=== PATIENT | male | born 1990 | race Caucasian/White ===

== ENCOUNTER 2016-04-19 03:29 | Inpatient (IN) | payer OTHER ==
[~2016-04-19] VITALS: Ht 165.1 cm; Wt 63.6 kg
[2016-04-19] VITALS (10 sets, daily range): BP systolic 137–194; BP diastolic 78–122; PULSE 75–93; RESP 16–18; TEMP 97.4–98.4; O2SAT 94–98
[~2016-04-19 03:29] MED LIST: ALEN5TAB PO; FAMO20 PO; HYDR200T42 PO; LOSA50TA PO; NORC7.5T PO; PANT20 PO; PRED5SOL PO; Z.0.NO CURRENT MEDS
[2016-04-19] MEDS ORDERED: PLAQ200T PO (03:45)
[2016-04-19] MEDS ORDERED: PRED5TAB PO (03:45)
[2016-04-19] MEDS ORDERED: HYDR-3366 PO (03:45)
[2016-04-19] MEDS ORDERED: PANT20 PO (03:45)
[2016-04-19] MEDS ORDERED: CARV6.252 PO (03:45)
[2016-04-19] MEDS ORDERED: MORPHINE SULFATE 4 MG/ML INJ IV PUSH ONE ×3 (04:00→06:15)
[2016-04-19] MEDS ORDERED: ONDANSETRON HCL 4 MG/2 ML VIAL IV PUSH ONE (04:15)
[2016-04-19 04:19] LABS: AUTOMATED NEUTROPHIL # 4.4 TH/MM3 (1.8-7.7); BASOPHIL % 0.4 % (0.0-2.0); EOSINOPHIL # 0.2 TH/MM3 (0-0.4); EOSINOPHIL % 3.5 % (0.0-4.0); HEMATOCRIT 40.4 % (39.0-51.0); HEMO FLAGS DIFF FINAL; LYMPH % 25.3 % (9.0-44.0); LYMPHOCYTE # 1.7 TH/MM3 (1.0-4.8); MEAN CELL VOLUME 82.8 FL (80.0-100.0); MEAN CORPUSCULAR HEMOGLOBIN 29.1 PG (27.0-34.0); MEAN CORPUSCULAR HGB CONC 35.1 % (32.0-36.0); MONO % 5.4 % (0.0-8.0); NEUT % 65.4 % (16.0-70.0); PLATELET COUNT 240 TH/MM3 (150-450); RED BLOOD COUNT 4.88 MIL/MM3 (4.50-5.90); RED CELL DISTRIBUTION WIDTH 13.2 % (11.6-17.2); WHITE BLOOD COUNT 6.8 TH/MM3 (4.0-11.0)
[2016-04-19 04:42] LABS: ALT (GPT) 15 U/L (12-78); ANION GAP 10 MEQ/L (5-15); AST (GOT) 22 U/L (15-37); BICARBONATE 22.9 MEQ/L (21.0-32.0); BLOOD UREA NITROGEN 13 MG/DL (7-18); CHLORIDE 106 MEQ/L (98-107); GLOMERULAR FILTRATION RATE 36 ML/MIN (>89); POTASSIUM 3.5 MEQ/L (3.5-5.1); SODIUM (NA) 139 MEQ/L (136-145)
[2016-04-19 04:44] LABS: ALKALINE PHOSPHATASE 72 U/L (45-117); TOTAL BILIRUBIN ADULT 0.3 MG/DL (0.2-1.0)
[2016-04-19] MEDS ORDERED: predniSONE 50 MG TAB PO ONE (05:15)
--- NOTE | 2016-04-19 06:22 | PD ---
HPI Chief Complaint: Pain: Acute or Chronic Time Seen by Provider: 03:45 Travel History International Travel<30 days: No Contact w/Intl Traveler<30days: No Traveled to known affect area: No History of Present Illness HPI Patient is a 25 year old male with a history of rheumatoid arthritis and SLE who comes in complaining of joint pain all over. He says he usually takes Lortab for his pain, but this is not working. He follows with specialists at [facility] and says he was last seen 3 months ago. He denies fever or chills. He says the pain is similar to prior episodes, but worse. He denies chest pain or SOB. PFSH Past Medical History Arthritis: Yes Asthma: Yes (HISTORY 2003) Autoimmune Disease: No Blood Disorders: No Anxiety: No Depression: Yes Cardiovascular Problems: Yes (HTN) High Cholesterol: No Chemotherapy: No Chest Pain: No Congestive Heart Failure: No COPD: No Cerebrovascular Accident: No Diabetes: No Diminished Hearing: No Endocrine: No GERD: No Glaucoma: No Genitourinary: No Headaches: No Hepatitis: No Hiatal Hernia: No Hypertension: Yes Immune Disorder: Yes (SYSTEMIC LUPUS) Kidney Stones: No Musculoskeletal: No Neurologic: No Psychiatric: No Reproductive: No Respiratory: Yes (INTERSTITIAL LUNG DISEASE.) Immunizations Current: Yes Migraines: No Myocardial Infarction: No Radiation Therapy: No Renal Failure: No Seizures: No Sickle Cell Disease: No Sleep Apnea: No Thyroid Disease: No Ulcer: No Influenza Vaccination: No Past Surgical History AICD: No Appendectomy: No Arteriovenous Shunt: No Cholecystectomy: No Joint Replacement: No Pacemaker: No Other Surgery: Yes (LUNG BIOPSY AT AGE 4) Social History Alcohol Use: Yes (SOCIAL) Tobacco Use: No Substance Use: Yes (marijuana) Allergies-Medications (Allergen,Severity, Reaction): Coded Allergies: Dilaudid (Verified Allergy, Severe, RASH, 04/19/16) Penicillin (Verified Allergy, Severe, RASH, 04/19/16) Latex (Verified Allergy, Unknown, 04/19/16) Uncoded Allergies: PLASTIC TAPE (Allergy, Severe, RASH, 11/27/08) Reported Meds & Prescriptions Reported Meds & Active Scripts Active Reported Protonix (Pantoprazole Sodium) 20 Mg Tab 20 Mg PO DAILY Prednisone 5 Mg Tab 15 Mg PO BID Carvedilol 6.25 Mg Tab 6.25 Mg PO BID [place] (Hydrocodone-Acetaminophen) 10-325 Mg Tab 1 Tab PO Q6H PRN Plaquenil (Hydroxychloroquine Sulfate) 200 Mg Tab 300 Mg PO DAILY Take with food Review of Systems Except as stated in HPI: all other systems reviewed are Neg General / Constitutional: No: Fever, Chills HENT: No: Headaches, Lightheadedness Cardiovascular: No: Chest Pain or Discomfort Respiratory: No: Shortness of Breath Gastrointestinal: No: Nausea, Vomiting Musculoskeletal: Positive: Arthralgias, Edema, Pain Skin: No Rash, No Change in Pigmentation Neurologic: No: Weakness, Dizziness Physical Exam Narrative GENERAL: Awake and alert in no acute distress. SKIN: Warm and dry. HEAD: Atraumatic. Normocephalic. EYES: Pupils equal and round. No scleral icterus. ENT: Mucous membranes pink and moist. NECK: Trachea midline. No JVD. CARDIOVASCULAR: Regular rate and rhythm. No murmur appreciated. RESPIRATORY: No accessory muscle use. Clear to auscultation. Breath sounds equal bilaterally. MUSCULOSKELETAL: No obvious deformities. No clubbing. No cyanosis. Edema of the right wrist. Tender to palpation of both shoulders and both wrists. No erythema or warmth of the joints. NEUROLOGICAL: Awake and alert. No obvious cranial nerve deficits. Motor grossly within normal limits. Normal speech. PSYCHIATRIC: Appropriate mood and affect; insight and judgment normal. Data Data Last Documented VS Vital Signs Date Time Temp Pulse Resp B/P Pulse Ox O2 Delivery O2 Flow Rate FiO2 04/19/16 05:01 76 16 174/116 94 Room Air 04/19/16 03:33 97.5 Orders Complete Blood Count With Diff (04/19/16 03:56) Comprehensive Metabolic Panel (04/19/16 03:56) Morphine Inj (Morphine Inj) (04/19/16 04:00) Ondansetron Inj (Zofran Inj) (04/19/16 04:15) Morphine Inj (Morphine Inj) (04/19/16 05:15) Prednisone (Deltasone) (04/19/16 05:15) Morphine Inj (Morphine Inj) (04/19/16 06:15) Admit Order (Ed Use Only) (04/19/16 ) Labs Laboratory Tests Test 04/19/16 03:56 White Blood Count 6.8 TH/MM3 Red Blood Count 4.88 MIL/MM3 Hemoglobin 14.2 GM/DL Hematocrit 40.4 % Mean Corpuscular Volume 82.8 FL Mean Corpuscular Hemoglobin 29.1 PG Mean Corpuscular Hemoglobin 35.1 % Concent Red Cell Distribution Width 13.2 % Platelet Count 240 TH/MM3 Mean Platelet Volume 7.9 FL Neutrophils (%) (Auto) 65.4 % Lymphocytes (%) (Auto) 25.3 % Monocytes (%) (Auto) 5.4 % Eosinophils (%) (Auto) 3.5 % Basophils (%) (Auto) 0.4 % Neutrophils # (Auto) 4.4 TH/MM3 Lymphocytes # (Auto) 1.7 TH/MM3 Monocytes # (Auto) 0.4 TH/MM3 Eosinophils # (Auto) 0.2 TH/MM3 Basophils # (Auto) 0.0 TH/MM3 CBC Comment DIFF FINAL Differential Comment Sodium Level 139 MEQ/L Potassium Level 3.5 MEQ/L Chloride Level 106 MEQ/L Carbon Dioxide Level 22.9 MEQ/L Anion Gap 10 MEQ/L Blood Urea Nitrogen 13 MG/DL Creatinine 2.23 MG/DL Estimat Glomerular Filtration 36 ML/MIN Rate Random Glucose 95 MG/DL Calcium Level 8.8 MG/DL Total Bilirubin 0.3 MG/DL Aspartate Amino Transf 22 U/L (AST/SGOT) Alanine Aminotransferase 15 U/L (ALT/SGPT) Alkaline Phosphatase 72 U/L Total Protein 7.5 GM/DL Albumin 3.7 GM/DL [facility] Medical Decision Making Medical Screen Exam Complete: Yes Emergency Medical Condition: Yes Medical Record Reviewed: Yes Differential Diagnosis Rheumatoid arthritis versus lupus flare versus infection Narrative Course Patient is a 25-year-old male who comes in complaining of pain to his joints. Exam shows some edema of the right wrist, tender to palpation of the shoulders and wrists. IV established, labs sent. Patient given morphine for pain. Labs show a creatinine of 2.23, it was 1.5 in October. He does not know what his creatinine was when he saw the specialist at [facility]. Patient given second dose of morphine due to continued pain. Patient states he is still having pain. Given third is a morphine. Admitted for management of his pain as well as his acute kidney injury. Diagnosis Primary Impression: Acute kidney injury Additional Impression: Intractable pain Admitting Information Admitting Physician Requests: Admit Mamta Retana MD Apr 19, 2016 06:22
[2016-04-19] MEDS ORDERED: oxyCODONE/ACETAMINOPHEN 10 MG/325 MG TAB PO PRN (06:30)
[2016-04-19] MEDS ORDERED: ACETAMINOPHEN 325 MG TAB PO PRN (06:30)
[2016-04-19] MEDS ORDERED: oxyCODONE/ACETAMINOPHEN 5 MG/325 MG TAB PO PRN (06:30)
[2016-04-19] MEDS ORDERED: NALOXONE HCL 0.4 MG/ML AMP IV PRN (06:30)
[2016-04-19] MEDS ORDERED: ENOXAPARIN SODIUM 40 MG/0.4 ML SYRINGE SQ SCH ×2 (06:30→06:45)
[2016-04-19] MEDS ORDERED: SODIUM CHLORIDE 0.9% FLUSH 5 ML FLUSH FLUSH PRN (06:30)
[2016-04-19] MEDS: SODIUM CHLOR 0.9% 1000 ML INJ 1,000 ML IV SCH ×2 (06:34→16:23)
[2016-04-19] MEDS ORDERED: hydrALAZINE HCL 20 MG/ML VIAL IV PUSH PRN (08:30)
[2016-04-19] MEDS: SODIUM CHLORIDE 0.9% FLUSH 5 ML FLUSH FLUSH SCH ×2 (09:00→20:50)
[2016-04-19] MEDS: ENOXAPARIN SODIUM 40 MG/0.4 ML SYRINGE SQ SCH (09:56)
[2016-04-19] MEDS: PANTOPRAZOLE SOD 40 MG DELAYED RELEASE TAB PO SCH (10:08)
[2016-04-19] MEDS: CARVEDILOL 12.5 MG TAB PO SCH ×2 (10:08→20:49)
[2016-04-19] MEDS: ONDANSETRON HCL 4 MG/2 ML VIAL IVP PRN (11:11)
[2016-04-19] MEDS: HYDROXYCHLOROQUINE SULFATE 200 MG TAB PO SCH (11:12)
[2016-04-19] MEDS: MORPHINE SULFATE 4 MG/ML INJ IV PUSH PRN ×2 (11:12→14:45)
--- NOTE | 2016-04-19 11:59 | HHI.HP ---
HPI Service [facility] Primary Care Physician Juan C Whalen M.D. Admission Diagnosis SHAKA, arthritis pain Diagnoses: (1) Hypertensive urgency Diagnosis: Principal (2) Intractable pain Diagnosis: Principal (3) CKD (chronic kidney disease), stage III Diagnosis: Principal (4) RA (rheumatoid arthritis) Diagnosis: Principal (5) Acute kidney injury Diagnosis: Principal Chief Complaint: Back pain, shoulder pain, headache, swelling and right wrist, insomnia, decreased appetite, nausea (Kaylene Leung) Travel History International Travel<30 Days: No Contact w/Intl Traveler <30 Da: No Traveled to Known Affected Are: No (Kaylene Leung) History of Present Illness This is a 25-year-old male who presents to the emergency room with uncontrolled back pain, shoulder pain ,headache, and swelling of the right wrist. He also complains of not sleeping for the past 3-4 days, and states that he has been nauseated with very minimal appetite. Patient denies any fever and has had no weight gain or weight loss more than 2 or 3 pounds. Patient is a good historian and has had a significant history of autoimmune disorders with a diagnosis of SLE. Patient has been followed at the [facility] in [place] where he has lived for the past 10 years. He was followed there by pulmonary medicine for 1 visit, consults with nephrology, and consults with rheumatology. He recently moved back to the [facility] in July 2015 due to his health issues to be with his mother and stepfather. Patient was also seen in the [facility] back in February with his shoulder pain. He states his shoulder x-ray showed no torn ligaments and no torn rotator cuff. Patient states that he is left shoulder pain continues to the point that he cannot get comfortable even taking his pain meds. Since patient has been back in the [facility] he has been followed by Dr. Shahbaz Whalen and had his last appointment in February. She states he is made no changes in his by mouth medicines, but does comment that the pain meds are not effective anymore. (Kaylene Leung) Review of Systems ROS Limitations: Other (10 point review obtained , unremarkable) Other 10 point review obtained with some of the positives and negatives initiated in the history of present illness, otherwise unremarkable (Kaylene Leung) Past Family Social History Past Medical History Left club foot at Hypertension Depression Rheumatoid arthritis as a child and asthma SLE Chronic joint pain Chronic kidney disease Tendinitis left shoulder Interstitial lung disease Headache Past Surgical History Surgical procedures for club foot 2 Kidney biopsy Lung biopsy Reported Medications See med reconciliation sheet (Kaylene Leung) Allergies: Coded Allergies: Dilaudid (Verified Allergy, Severe, RASH, 04/19/16) Penicillin (Verified Allergy, Severe, RASH, 04/19/16) Latex (Verified Allergy, Unknown, 04/19/16) Uncoded Allergies: PLASTIC TAPE (Allergy, Severe, RASH, 11/27/08) Active Ordered Medications By mouth prednisone Solu-Medrol IV Percocet scheduled [id number] Lovenox Senokot Plaquenil Protonix Apresoline when necessary Family History Mother father still living Mother hypertension and migraines Father EtOH abuse Brother aneurysms 2, at age 20 Social History No tobacco use rare social alcohol use Social marijuana use Patient lives with mother and stepfather. Moved back home 2015. Had been living in the [facility] for the past 10 years before moving back. (Kaylene Leung) Physical Exam Vital Signs Vital Signs Date Time Temp Pulse Resp B/P Pulse Ox O2 Delivery O2 Flow Rate FiO2 04/19/16 09:35 75 16 169/86 97 Room Air 04/19/16 09:15 75 16 181/108 97 Room Air 04/19/16 08:00 78 16 189/99 97 Room Air 04/19/16 05:01 76 16 174/116 94 Room Air 04/19/16 03:45 81 16 180/122 98 Room Air 04/19/16 03:33 97.5 80 16 194/102 98 Room Air Physical Exam GENERAL: This is a well-nourished, well-developed patient, in mild joint pain / distress. SKIN: No rashes, ecchymoses or lesions. Cool and dry. HEAD: Atraumatic. Normocephalic. No temporal or scalp tenderness. EYES: Pupils 2mm,equal round and reactive. Extraocular motions intact. No scleral icterus. No injection or drainage. ENT: Nose without bleeding, purulent drainage or septal hematoma. Throat without erythema, tonsillar hypertrophy or exudate. Uvula midline. Airway patent. NECK: Trachea midline. No JVD or lymphadenopathy. Supple, nontender CARDIOVASCULAR: Regular rate and rhythm without murmurs, gallops, or rubs. No pedal edema, RESPIRATORY: Clear to auscultation. Breath sounds equal bilaterally. No wheezes , rales, or rhonchi. Eupneic at rest. GASTROINTESTINAL: Abdomen soft, non-tender, nondistended. No hepato-splenomegaly , or palpable masses. No guarding. MUSCULOSKELETAL: Extremities with clubbing repair lt foot. , cyanosis, or edema. Positive for joint tenderness left and right wrist, no effusion, mild edema noted. No calf tenderness. Left hand and fingers abnormal curvature. NEUROLOGICAL: Awake and alert. Cranial nerves II through XII intact. Motor and sensory grossly within normal limits. Five out of 5 muscle strength in all muscle groups. Normal speech. Laboratory Laboratory Tests Test 04/19/16 03:56 White Blood Count 6.8 Red Blood Count 4.88 Hemoglobin 14.2 Hematocrit 40.4 Mean Corpuscular Volume 82.8 Mean Corpuscular Hemoglobin 29.1 Mean Corpuscular Hemoglobin 35.1 Concent Red Cell Distribution Width 13.2 Platelet Count 240 Mean Platelet Volume 7.9 Neutrophils (%) (Auto) 65.4 Lymphocytes (%) (Auto) 25.3 Monocytes (%) (Auto) 5.4 Eosinophils (%) (Auto) 3.5 Basophils (%) (Auto) 0.4 Neutrophils # (Auto) 4.4 Lymphocytes # (Auto) 1.7 Monocytes # (Auto) 0.4 Eosinophils # (Auto) 0.2 Basophils # (Auto) 0.0 CBC Comment DIFF FINAL Differential Comment Erythrocyte Sedimentation Rate 39 Sodium Level 139 Potassium Level 3.5 Chloride Level 106 Carbon Dioxide Level 22.9 Anion Gap 10 Blood Urea Nitrogen 13 Creatinine 2.23 Estimat Glomerular Filtration 36 Rate Random Glucose 95 Calcium Level 8.8 Total Bilirubin 0.3 Aspartate Amino Transf 22 (AST/SGOT) Alanine Aminotransferase 15 (ALT/SGPT) Alkaline Phosphatase 72 Total Protein 7.5 Albumin 3.7 (Kaylene Leung) Result Diagram: 04/19/16 0356 04/19/16 0356 Imaging none Course Admission for observation, pain control, hypertension control. Nephrology consult (Kaylene Leung) Septic Shock Reassessment Heart: Regular rate and rhythm Lungs: Clear Skin: Warm, Dry Peripheral Pulses: Bounding Right Radial Bounding Left Radial Bounding Right Popliteal Bounding Left Popliteal Bounding Right Dorsalis Pedis Bounding Left Dorsalis Pedis Bounding Right Posterior Tibial Bounding Left Posterior Tibial Capillary Refill: Brisk (Kaylene Leung) Assessment and Plan Problem List: (1) Hypertensive urgency (2) Intractable pain (3) CKD (chronic kidney disease), stage III (4) RA (rheumatoid arthritis) Assessment and Plan Increase Coreg dose and monitor BP during hospital stay. Add clonidine. IV hydralazine when necessary for parameters given for systolic and diastolic. Current need is to stabilize blood pressure with parameters of systolic 170 or less, diastolic 90 or less. Schedule by mouth pain meds, Percocet around the clock, Morphine 4 mg IV every 3 hours for breakthrough pain. Evaluate time in specific location of pain and document. Medication management as well as nephrology consult for his chronic kidney disease. Appreciate the expert opinion. Check labs in the morning CBC, BMP, sedimentation rate. We will continue to review warranted labs until discharge, and evaluate any abnormals. 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 Consult written inpatient. Reconcil home medications We'll reach out for old records at [facility] since patient lived in this area for at least 10 years. Also reach for old records for recent admission in February 2016 at [facility]. Code Status Full code full aggressive care Discussed With: Nurse, Other (Dr. Combs, and patient) (Kaylene Leung) Assessment and Plan Patient seen and examined as above Chart reviewed in detail Discussed with patient in detail Plan of care discussed with LOCAL AREA NETWORK ADMINISTRATOR See orders (Dorie Combs MD) Problem Qualifiers (1) RA (rheumatoid arthritis): Qualified Code: M06.9 - Rheumatoid arthritis involving multiple sites, unspecified rheumatoid factor presence Kaylene Leung Apr 19, 2016 11:59 Dorie Combs MD Apr 19, 2016 15:28
[2016-04-19] MEDS: oxyCODONE/ACETAMINOPHEN 10 MG/325 MG TAB PO SCH ×2 (12:35→18:32)
--- NOTE | 2016-04-19 13:55 | PD.CONS ---
[facility] Service Nephrology Consult Requested By Lauryn Reason for Consult Elevated creatinine Primary Care Physician Juan C Whalen M.D. History of Present Illness This is a young 25 y/o male patient who came in for joint pain. Hx of RA and SLE, he is on Prednisone and Plaquenil at home. His pain medications have not been working the past few days. Creatinine 2.2 on arrival, he has a hx of CKD for which he follows with a physician at [place] in [place] every 3 months. He had a biopsy in January of 2015. His last creatinine was 1.46 in November 2015 per [facility] records patient had access to with his phone, GFR in 50s. No reports of urinary retention. He also has a hx of HTN and interstitial lung disease, had a biopsy as a child, has "honeycombed lungs" per pt. 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 We were consulted for management. He is a full code. (Christelle Kent) Review of Systems Musculoskeletal: COMPLAINS OF: Joint pain, Muscle aches, Stiffness, Joint Swelling (Christelle Kent) Past Family Social History Allergies: Coded Allergies: Dilaudid (Verified Allergy, Severe, RASH, 04/19/16) Penicillin (Verified Allergy, Severe, RASH, 04/19/16) Latex (Verified Allergy, Unknown, 04/19/16) Uncoded Allergies: PLASTIC TAPE (Allergy, Severe, RASH, 11/27/08) Past Medical History SLE CKD, last creatinine from November 2015 per records at [facility] 1.46 chronic joint pain due to RA HTN Anxiety/Depression Past Surgical History Surgical procedures for club foot 2 Kidney biopsy Lung biopsy Reported Medications Protonix (Pantoprazole Sodium) 20 Mg Tab 20 Mg PO DAILY Prednisone 5 Mg Tab 15 Mg PO BID Carvedilol 6.25 Mg Tab 6.25 Mg PO BID [place] (Hydrocodone-Acetaminophen) 10-325 Mg Tab 1 Tab PO Q6H PRN Plaquenil (Hydroxychloroquine Sulfate) 200 Mg Tab 300 Mg PO DAILY Take with food Active Ordered Medications Current Medications Medications (Trade) Dose Ordered Sig/Matt Route Start Time Stop Time Status Last Admin (NS 1000 ml Inj) 1,000 ml @ 100 mls/hr Q10H IV 04/19/16 06:23 04/19/16 06:34 (NS Flush) 2 ml UNSCH PRN FLUSH 04/19/16 06:30 (NS Flush) 2 ml BID FLUSH 04/19/16 09:00 (Tylenol) 650 mg Q4H PRN PO 04/19/16 06:30 (Zofran Inj) 4 mg Q6H PRN IVP 04/19/16 06:30 04/19/16 11:11 (Senokot) 17.2 mg Q12H PRN PO 04/19/16 06:30 (Narcan Inj) 0.4 mg UNSCH PRN IV 04/19/16 06:30 (Lovenox Inj) 40 mg Q24H SQ 04/19/16 09:00 04/19/16 09:56 (Apresoline Inj) 10 mg Q30M PRN IV PUSH 04/19/16 08:30 04/19/16 09:08 (Percocet 10-325 Mg) 1 tab Q6H PO 04/19/16 12:30 04/19/16 12:35 (SoluMEDROL INJ) 40 mg Q12H IV PUSH 04/19/16 17:00 04/21/16 16:59 (Morphine Inj) 4 mg Q3H PRN IV PUSH 04/19/16 10:00 04/19/16 11:12 (Protonix) 40 mg DAILY PO 04/19/16 10:00 04/19/16 10:08 (Plaquenil) 300 mg DAILY PO 04/19/16 11:00 04/19/16 11:12 (Deltasone) 15 mg BID PO 04/19/16 21:00 (Coreg) 12.5 mg Q12HR PO 04/19/16 10:00 04/19/16 10:08 (Catapres) 0.1 mg Q6H PRN PO 04/19/16 09:45 (Apresoline) 10 mg QID PRN PO 04/19/16 09:45 Family History No hx of renal disorders Social History Moved back to the area last July from [place] 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 not occasional smoker no ETOH full code (Christelle Kent) Physical Exam Vital Signs Vital Signs Date Time Temp Pulse Resp B/P Pulse Ox O2 Delivery O2 Flow Rate FiO2 04/19/16 12:00 97.4 84 16 144/93 95 1/13/17 09:35 75 16 169/86 97 Room Air 04/19/16 09:15 75 16 181/108 97 Room Air 04/19/16 08:00 78 16 189/99 97 Room Air 04/19/16 05:01 76 16 174/116 94 Room Air 04/19/16 03:45 81 16 180/122 98 Room Air 04/19/16 03:33 97.5 80 16 194/102 98 Room Air Physical Exam Young male awake/oriented x 3 Lungs: clear throughout Chest: S1/S2, regular rate and rhythm, no murmurs Abd: flat, non tender Ext: no edema, some minor joint swelling Skin: intact Laboratory Laboratory Tests Test 04/19/16 03:56 White Blood Count 6.8 Red Blood Count 4.88 Hemoglobin 14.2 Hematocrit 40.4 Mean Corpuscular Volume 82.8 Mean Corpuscular Hemoglobin 29.1 Mean Corpuscular Hemoglobin 35.1 Concent Red Cell Distribution Width 13.2 Platelet Count 240 Mean Platelet Volume 7.9 Neutrophils (%) (Auto) 65.4 Lymphocytes (%) (Auto) 25.3 Monocytes (%) (Auto) 5.4 Eosinophils (%) (Auto) 3.5 Basophils (%) (Auto) 0.4 Neutrophils # (Auto) 4.4 Lymphocytes # (Auto) 1.7 Monocytes # (Auto) 0.4 Eosinophils # (Auto) 0.2 Basophils # (Auto) 0.0 CBC Comment DIFF FINAL Differential Comment Erythrocyte Sedimentation Rate 39 Sodium Level 139 Potassium Level 3.5 Chloride Level 106 Carbon Dioxide Level 22.9 Anion Gap 10 Blood Urea Nitrogen 13 Creatinine 2.23 Estimat Glomerular Filtration 36 Rate Random Glucose 95 Calcium Level 8.8 Total Bilirubin 0.3 Aspartate Amino Transf 22 (AST/SGOT) Alanine Aminotransferase 15 (ALT/SGPT) Alkaline Phosphatase 72 Total Protein 7.5 Albumin 3.7 (Christelle Kent) Result Diagram: 04/19/1635504/19/16355 Assessment and Plan Problem List: (1) Acute kidney injury Plan: creatinine 2.2 on arrival, last available creatinine from [facility] system 1.46m, GFR in 50-60s, consistent with CKD 2-3 no evidence of infection, no NAIDS use, no recent dehydration K and C02 acceptable he is on IVF, continue and encourage oral intake creatinine may have worsened since his last office visit he is on high doses of steroids, which may raise BUN monitor urine output, no strauss required obtain UA for analysis, quantify protein if necessary will obtain renal US to rule out any obstructive etiologies of increase in creatinine renal panel in am (2) HTN (hypertension) Plan: home meds resumed needs better BP control clonidine added, monitor response (3) Intractable pain Plan: pain control avoid NSAIDs (4) SLE (systemic lupus erythematosus) Plan: and RA, ESR is elevated he is on prednisone 15 mg BID, solumedrol started IV also on Plaquenil per home dosage, monitor clinically (Christelle Kent) Assessment and Plan patient was seen and examined. Complicated medical history was reviewed. Apparently has history of RA, and interstitial lung disease. Had renal biopsy in January of 2015, after which they made a diagnosis of "lupus". Will need to review old records. Continue IVF. On empiric steroids. Obtain NORBERTO, complement levels and RF. Avoid nephrotoxic agents. (Twan Robbins MD) Christelle Kent Apr 19, 2016 13:55 Twan Robbins MD Apr 19, 2016 16:39
[2016-04-19] MEDS: cloNIDine HCL 0.1 MG TAB PO SCH ×2 (17:24→20:49)
[2016-04-19] MEDS: methylPREDNISolone SOD SUCC 40 MG/1 ML VIAL IV PUSH SCH (17:30)
[2016-04-19 18:08] LABS: BLOOD, URINE LARGE (NEG); COMMENT (UR) CULT NOT INDICATED; CULTURE IF INDICATED CULT NOT INDICATED; GLUCOSE,URINE NEG (NEG); GRANULAR CAST, URINE 6 /lpf; KETONE, URINE NEG (NEG); NITRITE,URINE NEG (NEG); PH, URINE 5.5 (5.0-8.5); URINE COLOR YELLOW (YELLW/STRAW)
--- NOTE | 2016-04-19 20:36 | RADRPT ---
EXAM DATE/TIME: 04/19/2016 16:54 [facility] COMPARISON: No previous studies available for comparison. INDICATIONS : Increased BUN/Creatinine. MEDICAL HISTORY : Hypertension. Asthma. Interstitial lung disease. Chronic renal impairment. Arthritis. Systemic heather pus. SURGICAL HISTORY : Left foot reconstruction, clubfoot. Right wrist reconstruction. Lung biopsy. ENCOUNTER: Initial ACUITY: 1 day PAIN SCORE: 0/10 LOCATION: Bilateral flank MEASUREMENTS: RIGHT KIDNEY: 9.5 x 5.5 x 4.0 cm LEFT KIDNEY: 9.7 x 5.0 x 5.4 cm FINDINGS: RIGHT KIDNEY: The kidney appears echogenic. No hydronephrosis is seen. LEFT KIDNEY: The kidney appears echogenic. No hydronephrosis is seen. BLADDER: Within normal limits given the degree of distension. CONCLUSION: Echogenic appearance of the kidneys consistent with medical renal disease. Juan C Salcedo MD on April 19, 2016 at 20:33 Board Certified Radiologist. This report was verified electronically.
[2016-04-19] MEDS ORDERED: predniSONE 5 MG TAB PO SCH (21:00)
[2016-04-19] MEDS: ZOLPIDEM TARTRATE 5 MG TAB PO PRN (21:58)
[2016-04-19] MEDS: MORPHINE SULFATE 8 MG/ML INJ IV PUSH PRN (22:00)
[2016-04-20] VITALS: BP 128/92; PULSE 79; RESP 16; TEMP 97; O2SAT 96
[2016-04-20] MEDS: oxyCODONE/ACETAMINOPHEN 10 MG/325 MG TAB PO PRN ×4 (00:48→19:59)
[2016-04-20] MEDS: SODIUM CHLOR 0.9% 1000 ML INJ 1,000 ML IV SCH ×2 (02:23→12:49)
[2016-04-20 04:00] VITALS: BP 126/89; PULSE 77; RESP 16; TEMP 96.7; O2SAT 96
[2016-04-20] MEDS: methylPREDNISolone SOD SUCC 40 MG/1 ML VIAL IV PUSH SCH ×2 (05:28→16:55)
[2016-04-20] MEDS: MORPHINE SULFATE 8 MG/ML INJ IV PUSH PRN ×2 (05:39→12:49)
[2016-04-20 06:42] LABS: BICARBONATE 22.7 MEQ/L (21.0-32.0); POTASSIUM 4.2 MEQ/L (3.5-5.1)
[2016-04-20 06:43] LABS: AUTOMATED NEUTROPHIL # 3.2 TH/MM3 (1.8-7.7); BASOPHIL % 0.1 % (0.0-2.0); HEMATOCRIT 37.5 % (39.0-51.0); HEMO FLAGS DIFF FINAL; LYMPH % 24.8 % (9.0-44.0); LYMPHOCYTE # 1.2 TH/MM3 (1.0-4.8); MEAN CELL VOLUME 83.4 FL (80.0-100.0); MEAN CORPUSCULAR HEMOGLOBIN 28.5 PG (27.0-34.0); MEAN CORPUSCULAR HGB CONC 34.2 % (32.0-36.0); MONO % 6.6 % (0.0-8.0); NEUT % 68.5 % (16.0-70.0); PLATELET COUNT 227 TH/MM3 (150-450); RED CELL DISTRIBUTION WIDTH 13.2 % (11.6-17.2); WHITE BLOOD COUNT 4.7 TH/MM3 (4.0-11.0)
[2016-04-20 08:00] VITALS: BP 142/86; PULSE 68; RESP 18; TEMP 96.3; O2SAT 96
[2016-04-20] MEDS: HYDROXYCHLOROQUINE SULFATE 200 MG TAB PO SCH (08:33)
[2016-04-20] MEDS: cloNIDine HCL 0.1 MG TAB PO SCH ×2 (08:33→19:56)
[2016-04-20] MEDS: ENOXAPARIN SODIUM 40 MG/0.4 ML SYRINGE SQ SCH (08:33)
[2016-04-20] MEDS: PANTOPRAZOLE SOD 40 MG DELAYED RELEASE TAB PO SCH (08:33)
[2016-04-20] MEDS: CARVEDILOL 12.5 MG TAB PO SCH ×2 (08:33→19:56)
[2016-04-20] MEDS: SODIUM CHLORIDE 0.9% FLUSH 5 ML FLUSH FLUSH SCH ×2 (08:34→19:57)
[2016-04-20 12:00] VITALS: BP 121/81; PULSE 75; RESP 18; TEMP 97.2; O2SAT 93
--- NOTE | 2016-04-20 12:09 | HHI.NPPN ---
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 Review of Systems Musculoskeletal MS: Pain/Stiffness Objective Data Data 04/19/16 04/20/16 19:00 07:00 Intake Total 1765 ml 1200 ml Output Total 300 ml Balance 1465 ml 1200 ml Intake Oral 720 ml 1200 ml IV Total 1045 ml Output Urine Total 300 ml # Voids 5 # Bowel Movements 0 1 Vital Signs Date Time Temp Pulse Resp B/P Pulse Ox O2 Delivery O2 Flow Rate FiO2 04/20/16 08:00 96.3 68 18 142/86 96 04/20/16 06:04 18 04/20/16 04:00 96.7 77 16 126/89 96 04/20/16 01:55 18 04/20/16 00:00 97.0 79 16 128/92 96 04/19/16 20:00 97.5 75 17 137/91 94 04/19/16 16:00 98.4 93 18 139/78 98 04/19/16 14:40 87 138/94 -: 04/20/16 0533 04/20/16 0533 Physical Exam General Appearance: Well Developed Neck Neck Exam: Neck Supple Pulmonary Resp Exam: Clear Bilaterally Cardiology CV Exam: Regular, Normal Sinus Rhythm Gastrointestinal/Abdomen GI Exam: Soft, Non-Tender, Bowel Sounds Present Integumentary Skin Exam: Clear Extremeties Extremities Exam: No Edema Assessment/Plan Problem List: (1) Acute kidney injury Plan: creatinine declined with hydration C3 normal RA increased 780 RBC in urine agree with SoluMedrol consider Cellcept (2) HTN (hypertension) Plan: home meds resumed needs better BP control clonidine added, monitor response (3) Intractable pain Plan: pain control avoid NSAIDs (4) SLE (systemic lupus erythematosus) Plan: and RA, ESR is elevated he is on prednisone 15 mg BID, solumedrol started IV also on Plaquenil per home dosage, monitor clinically Kate Deutsch MD Apr 20, 2016 12:09
[2016-04-20] MEDS: SENNOSIDES 8.6 MG TAB PO PRN (14:12)
--- NOTE | 2016-04-20 14:54 | HHI.PR ---
Subjective Remarks Patient has pain. Current medications are not helping him much. As the patient he has CellCept before. It did not help his kidney it was for 3 months. No other complaint Review of system for 12 point system otherwise unremarkable Objective Objective Results - Vital Signs Date Time Temp Pulse Resp B/P Pulse Ox O2 Delivery O2 Flow Rate FiO2 04/20/16 12:00 97.2 75 18 121/81 93 04/20/16 08:00 96.3 68 18 142/86 96 04/20/16 06:04 18 04/20/16 04:00 96.7 77 16 126/89 96 04/20/16 01:55 18 04/20/16 00:00 97.0 79 16 128/92 96 04/19/16 20:00 97.5 75 17 137/91 94 04/19/16 16:00 98.4 93 18 139/78 98 I/O 04/19/16 04/19/16 04/19/16 04/20/16 04/20/16 04/20/16 07:00 15:00 23:00 07:00 15:00 23:00 Intake Total 720 ml 1765 ml 480 ml 902 ml Output Total 300 ml Balance 420 ml 1765 ml 480 ml 902 ml Intake Oral 720 ml 720 ml 480 ml IV Total 1045 ml 902 ml Output Urine Total 300 ml # Voids 3 2 # Bowel Movements 0 1 Result Diagram: 04/20/16 0533 04/20/16 0533 Imaging none Other Results Laboratory Tests Test 04/19/16 04/20/16 17:20 05:33 Urine Color YELLOW Urine Turbidity CLEAR Urine pH 5.5 Urine Specific [place] 1.011 Urine Protein 100 Urine Glucose (UA) NEG Urine Ketones NEG Urine Occult Blood LARGE Urine Nitrite NEG Urine Bilirubin NEG Urine Urobilinogen LESS THAN 2.0 Urine Leukocyte Esterase NEG Urine RBC 31 Urine WBC 1 Urine Granular Casts 6 Microscopic Urinalysis Comment CULT NOT INDICATED White Blood Count 4.7 Red Blood Count 4.50 Hemoglobin 12.8 Hematocrit 37.5 Mean Corpuscular Volume 83.4 Mean Corpuscular Hemoglobin 28.5 Mean Corpuscular Hemoglobin 34.2 Concent Red Cell Distribution Width 13.2 Platelet Count 227 Mean Platelet Volume 8.0 Neutrophils (%) (Auto) 68.5 Lymphocytes (%) (Auto) 24.8 Monocytes (%) (Auto) 6.6 Eosinophils (%) (Auto) 0.0 Basophils (%) (Auto) 0.1 Neutrophils # (Auto) 3.2 Lymphocytes # (Auto) 1.2 Monocytes # (Auto) 0.3 Eosinophils # (Auto) 0.0 Basophils # (Auto) 0.0 CBC Comment DIFF FINAL Differential Comment Sodium Level 140 Potassium Level 4.2 Chloride Level 109 Carbon Dioxide Level 22.7 Anion Gap 8 Blood Urea Nitrogen 17 Creatinine 1.72 Estimat Glomerular Filtration 48 Rate Random Glucose 109 Calcium Level 8.1 Physical Exam Physical Exam GENERAL: This is a well-nourished, well-developed patient, in mild joint pain / distress. SKIN: No rashes, ecchymoses or lesions. Cool and dry. HEAD: Atraumatic. Normocephalic. No temporal or scalp tenderness. EYES: Pupils equal round and reactive. Extraocular motions intact. No scleral icterus. No injection or drainage. ENT: Airway patent. NECK: Trachea midline. Supple, nontender CARDIOVASCULAR: Regular rate and rhythm without murmurs, gallops, or rubs. No pedal edema, RESPIRATORY: Clear to auscultation. Breath sounds equal bilaterally. No wheezes , rales, or rhonchi. GASTROINTESTINAL: Abdomen soft, non-tender, nondistended. No hepato-splenomegaly , or palpable masses. No guarding. MUSCULOSKELETAL: Extremities with clubbing repair lt foot. , No cyanosis, and no edema. Positive for joint tenderness left and right wrist, no effusion, mild edema noted. No calf tenderness. Left hand and fingers abnormal curvature. Secondary to her rheumatoid arthritis NEUROLOGICAL: Awake and alert. Cranial nerves II through XII intact. Motor and sensory grossly within normal limits. Five out of 5 muscle strength in all muscle groups. Normal speech. A/P Assessment and Plan Diagnoses: (1) Hypertensive urgency (2) Intractable pain (3) CKD (chronic kidney disease), stage III (4) RA (rheumatoid arthritis) (5) Acute kidney injury Plan Increased Coreg dose and monitor BP during hospital stay. When necessary basis clonidine. hydralazine when necessary for parameters given for systolic and diastolic. Stable BP Schedule by mouth pain meds, Percocet around the clock, will DC Morphine and start Dilaudid on a when necessary basis evaluate time in specific location of pain and document. Appreciate nephrology consult. Started on low-dose CellCept. Discussed with real estate leasing manager will continue CellCept and monitor for any side effects. Labs reviewed. Improving creatinine. Continue home medication as indicated Continue steroid As outpatient he needs to follow counter intelligence agent. No counter intelligence agent available in this hospital. Repeat BMP tomorrow am The DVT prophylaxis including SCDs PUD prophylaxis Discussed with patient Discussed with RN Discussed With: Nurse, Other (Dr. Combs, and patient) Dorie Combs MD Apr 20, 2016 14:54
[2016-04-20] MEDS ORDERED: HYDROmorphone HCL 2 MG TAB PO PRN (15:00)
[2016-04-20 16:00] VITALS: BP 139/88; PULSE 73; RESP 16; TEMP 97.6; O2SAT 95
[2016-04-20] MEDS: MYCOPHENOLATE MOFETIL 500 MG TAB PO SCH (16:54)
[2016-04-20] MEDS: HYDROmorphone HCL PF 1 MG/ML VIAL IV PRN ×2 (18:26→22:29)
[2016-04-20 20:00] VITALS: BP 135/89; PULSE 72; RESP 17; TEMP 97.1; O2SAT 96
[2016-04-20] MEDS: ONDANSETRON HCL 4 MG/2 ML VIAL IVP PRN (21:51)
[2016-04-20] MEDS: ZOLPIDEM TARTRATE 5 MG TAB PO PRN (22:29)
[2016-04-21] VITALS (7 sets, daily range): BP systolic 137–158; BP diastolic 88–99; PULSE 55–76; RESP 14–18; TEMP 96.2–98.2; O2SAT 95–98
[2016-04-21] MEDS: SODIUM CHLOR 0.9% 1000 ML INJ 1,000 ML IV SCH ×2 (00:51→13:47)
[2016-04-21] MEDS: oxyCODONE/ACETAMINOPHEN 10 MG/325 MG TAB PO PRN ×4 (04:56→21:26)
[2016-04-21] MEDS: MYCOPHENOLATE MOFETIL 500 MG TAB PO SCH ×2 (04:56→16:54)
[2016-04-21] MEDS: methylPREDNISolone SOD SUCC 40 MG/1 ML VIAL IV PUSH SCH ×2 (04:56→16:48)
[2016-04-21 07:20] LABS: AUTOMATED NEUTROPHIL # 5.5 TH/MM3 (1.8-7.7); BASOPHIL % 0.1 % (0.0-2.0); HEMATOCRIT 37.4 % (39.0-51.0); HEMO FLAGS DIFF FINAL; LYMPHOCYTE # 1.4 TH/MM3 (1.0-4.8); MEAN CELL VOLUME 83.5 FL (80.0-100.0); MEAN CORPUSCULAR HEMOGLOBIN 28.5 PG (27.0-34.0); MEAN CORPUSCULAR HGB CONC 34.2 % (32.0-36.0); MONO % 5.8 % (0.0-8.0); NEUT % 75.1 % (16.0-70.0); PLATELET COUNT 212 TH/MM3 (150-450); RED BLOOD COUNT 4.48 MIL/MM3 (4.50-5.90); RED CELL DISTRIBUTION WIDTH 13.3 % (11.6-17.2); WHITE BLOOD COUNT 7.3 TH/MM3 (4.0-11.0)
[2016-04-21 07:31] LABS: BICARBONATE 23.6 MEQ/L (21.0-32.0); POTASSIUM 4.3 MEQ/L (3.5-5.1)
[2016-04-21] MEDS: cloNIDine HCL 0.1 MG TAB PO SCH ×2 (09:31→21:25)
[2016-04-21] MEDS: HYDROXYCHLOROQUINE SULFATE 200 MG TAB PO SCH (09:31)
[2016-04-21] MEDS: ENOXAPARIN SODIUM 40 MG/0.4 ML SYRINGE SQ SCH (09:31)
[2016-04-21] MEDS: PANTOPRAZOLE SOD 40 MG DELAYED RELEASE TAB PO SCH (09:32)
[2016-04-21] MEDS: SODIUM CHLORIDE 0.9% FLUSH 5 ML FLUSH FLUSH SCH ×2 (09:32→21:25)
[2016-04-21] MEDS: CARVEDILOL 12.5 MG TAB PO SCH ×2 (09:32→21:25)
--- NOTE | 2016-04-21 12:44 | HHI.PR ---
Subjective Remarks Patient has pain improving and better than yesterday. Current medications are helping him Some swelling of the right leg No bowel movement yet No other complaint Review of system for 10 point system otherwise unremarkable Objective Objective Results - Vital Signs Date Time Temp Pulse Resp B/P Pulse Ox O2 Delivery O2 Flow Rate FiO2 04/21/16 09:31 61 04/21/16 08:00 96.8 55 14 143/94 95 04/21/16 04:00 96.2 62 16 158/88 96 04/21/16 00:00 97.0 75 16 137/90 95 04/20/16 20:00 97.1 72 17 135/89 96 04/20/16 16:00 97.6 73 16 139/88 95 I/O 04/20/16 04/20/16 04/20/16 04/21/16 04/21/16 04/21/16 07:00 15:00 23:00 07:00 15:00 23:00 Intake Total 480 ml 1862 ml 1040 ml 800 ml Balance 480 ml 1862 ml 1040 ml 800 ml Intake Oral 480 ml 960 ml 480 ml 240 ml IV Total 902 ml 560 ml 560 ml # Voids 2 5 6 3 # Bowel Movements 0 Result Diagram: 04/21/16 0601 04/21/16 0601 Imaging none Other Results Laboratory Tests Test 04/21/16 06:01 White Blood Count 7.3 Red Blood Count 4.48 Hemoglobin 12.8 Hematocrit 37.4 Mean Corpuscular Volume 83.5 Mean Corpuscular Hemoglobin 28.5 Mean Corpuscular Hemoglobin 34.2 Concent Red Cell Distribution Width 13.3 Platelet Count 212 Mean Platelet Volume 8.2 Neutrophils (%) (Auto) 75.1 Lymphocytes (%) (Auto) 19.0 Monocytes (%) (Auto) 5.8 Eosinophils (%) (Auto) 0.0 Basophils (%) (Auto) 0.1 Neutrophils # (Auto) 5.5 Lymphocytes # (Auto) 1.4 Monocytes # (Auto) 0.4 Eosinophils # (Auto) 0.0 Basophils # (Auto) 0.0 CBC Comment DIFF FINAL Differential Comment Sodium Level 141 Potassium Level 4.3 Chloride Level 108 Carbon Dioxide Level 23.6 Anion Gap 9 Blood Urea Nitrogen 16 Creatinine 1.42 Estimat Glomerular Filtration 60 Rate Random Glucose 105 Calcium Level 8.1 Physical Exam Physical Exam GENERAL: This is a well-nourished, well-developed patient, in mild joint pain / distress. SKIN: No rashes, ecchymoses or lesions. Cool and dry. HEAD: Atraumatic. Normocephalic. No temporal or scalp tenderness. EYES: Pupils equal round and reactive. Extraocular motions intact. No scleral icterus. No injection or drainage. ENT: Airway patent. NECK: Trachea midline. Supple, nontender CARDIOVASCULAR: Regular rate and rhythm without murmurs, gallops, or rubs. No pedal edema, RESPIRATORY: Clear to auscultation. Breath sounds equal bilaterally. No wheezes , rales, or rhonchi. GASTROINTESTINAL: Abdomen soft, non-tender, nondistended. No hepato-splenomegaly , or palpable masses. No guarding. MUSCULOSKELETAL: Extremities with clubbing repair lt foot. , No cyanosis, and some edema right leg. Positive for joint tenderness left and right wrist, no effusion, mild edema noted. No calf tenderness. Left hand and fingers abnormal curvature. Secondary to her rheumatoid arthritis NEUROLOGICAL: Awake and alert. Cranial nerves II through XII intact. Motor and sensory grossly within normal limits. Five out of 5 muscle strength in all muscle groups. Normal speech. A/P Assessment and Plan Diagnoses: (1) Hypertensive urgency (2) Intractable pain (3) CKD (chronic kidney disease), stage III (4) RA (rheumatoid arthritis) (5) Acute kidney injury Plan Increased Coreg dose and monitor BP during hospital stay. When necessary basis clonidine. hydralazine when necessary for parameters given for systolic and diastolic. Stable BP Schedule by mouth pain meds, Percocet around the clock, on Dilaudid on a when necessary basis evaluate time in specific location of pain and document. Appreciate nephrology consult. Discussed with dress draper Started on low-dose CellCept. Improving renal endorses Labs reviewed. Improving creatinine. Continue home medication as indicated Continue IV hydration On steroid short course As outpatient he needs to follow performance specialist. No performance specialist available in this hospital. Labs reviewed Repeat labs tomorrow Ultrasound of the right lower extremity The DVT prophylaxis including SCDs PUD prophylaxis Discussed with patient Discussed with RN Discussed With: Nurse, Other (Dr. Combs, and patient) Dorie Combs MD Apr 21, 2016 12:44
--- NOTE | 2016-04-21 12:46 | HHI.NPPN ---
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 Review of Systems Musculoskeletal MS: Pain/Stiffness Objective Data Data 04/20/16 04/21/16 19:00 07:00 Intake Total 1862 ml 1840 ml Balance 1862 ml 1840 ml Intake Oral 960 ml 720 ml IV Total 902 ml 1120 ml # Voids 5 9 # Bowel Movements 0 Vital Signs Date Time Temp Pulse Resp B/P Pulse Ox O2 Delivery O2 Flow Rate FiO2 04/21/16 09:31 61 04/21/16 08:00 96.8 55 14 143/94 95 04/21/16 04:00 96.2 62 16 158/88 96 04/21/16 00:00 97.0 75 16 137/90 95 04/20/16 20:00 97.1 72 17 135/89 96 04/20/16 16:00 97.6 73 16 139/88 95 -: 04/21/16 0601 04/21/16 0601 Physical Exam General Appearance: Well Developed Neck Neck Exam: Neck Supple Pulmonary Resp Exam: Clear Bilaterally Cardiology CV Exam: Regular, Normal Sinus Rhythm Gastrointestinal/Abdomen GI Exam: Soft, Non-Tender, Bowel Sounds Present Integumentary Skin Exam: Clear Extremeties Extremities Exam: No Edema Assessment/Plan Problem List: (1) Acute kidney injury Plan: creatinine declined with hydration 1.4 now C3 normal RA increased 780 RBC in urine agree with SoluMedrol on Cellcept 500 mg bid d/w Dr. Combs and patient (2) HTN (hypertension) Plan: home meds resumed needs better BP control clonidine added, monitor response add Ativan as anxious 0.5 mg q 12 prn (3) Intractable pain Plan: pain control avoid NSAIDs (4) SLE (systemic lupus erythematosus) Plan: and RA, ESR is elevated he is on prednisone 15 mg BID, solumedrol started IV also on Plaquenil per home dosage, monitor clinically Kate Deutsch MD Apr 21, 2016 12:46
[2016-04-21] MEDS: SENNOSIDES 8.6 MG TAB PO PRN (13:46)
[2016-04-21] MEDS ORDERED: BISACODYL 10 MG SUPP RECTAL ONE (14:00)
[2016-04-21] MEDS: HYDROmorphone HCL PF 1 MG/ML VIAL IV PRN (16:47)
[2016-04-21] MEDS: LORazepam 0.5 MG TAB PO PRN (16:53)
--- NOTE | 2016-04-21 17:34 | RADRPT ---
EXAM DATE/TIME: 04/21/2016 16:38 [facility] COMPARISON: No previous studies available for comparison. INDICATIONS : Right lower extremity edema. MEDICAL HISTORY : Hypertension. Interstitial lung disease. Systemic Lupus. Chronic renal imp airment. Arthritis. Asthma. Rheumatoid arthritis. Depression. MRSA. SURGICAL HISTORY : Left foot reconstruction, club foot. Right wrist reconstruction. Lung biop sy. ENCOUNTER: Initial ACUITY: 1 day PAIN SCORE: 2/10 LOCATION: Right leg. TECHNIQUE: Venous ultrasound of the leg was performed from the inguinal ligament to the proximal calf. Real-time, color Doppler and spectral tracing, compression and augmentation techniques were us ed. FINDINGS: There is normal compressibility of the deep venous system from the inguinal region to the proximal ca lf. No echogenic clot is seen in the lumen of the common femoral, femoral, popliteal, and posterior tibial veins. There is a normal response of the venous system to proximal and distal augmentation an d respiration. CONCLUSION: Negative for deep venous thrombosis. Vickey Kaur MD FACR on April 21, 2016 at 17:32 Board Certified Radiologist. This report was verified electronically.
[2016-04-21] MEDS: ZOLPIDEM TARTRATE 5 MG TAB PO PRN (21:25)
[2016-04-21] MEDS: hydrALAZINE HCL 10 MG TAB PO PRN (23:39)
[2016-04-22] VITALS (8 sets, daily range): BP systolic 140–188; BP diastolic 75–103; PULSE 54–68; RESP 16–18; TEMP 96.8–97.9; O2SAT 97–100
[2016-04-22] MEDS: SODIUM CHLOR 0.9% 1000 ML INJ 1,000 ML IV SCH ×2 (02:53→16:01)
[2016-04-22] MEDS: cloNIDine HCL 0.1 MG TAB PO PRN (04:32)
[2016-04-22] MEDS: oxyCODONE/ACETAMINOPHEN 10 MG/325 MG TAB PO PRN ×2 (06:08→15:58)
[2016-04-22] MEDS: MYCOPHENOLATE MOFETIL 500 MG TAB PO SCH (06:08)
[2016-04-22 07:08] LABS: HEMATOCRIT 38.9 % (39.0-51.0); MEAN CELL VOLUME 84.6 FL (80.0-100.0); MEAN CORPUSCULAR HEMOGLOBIN 28.3 PG (27.0-34.0); MEAN CORPUSCULAR HGB CONC 33.5 % (32.0-36.0); PLATELET COUNT 199 TH/MM3 (150-450); RED CELL DISTRIBUTION WIDTH 13.5 % (11.6-17.2); REVIEW FLAG FINAL; WHITE BLOOD COUNT 8.1 TH/MM3 (4.0-11.0)
[2016-04-22 07:28] LABS: BICARBONATE 25.4 MEQ/L (21.0-32.0); POTASSIUM 3.8 MEQ/L (3.5-5.1)
[2016-04-22] MEDS: PANTOPRAZOLE SOD 40 MG DELAYED RELEASE TAB PO SCH (08:57)
[2016-04-22] MEDS: cloNIDine HCL 0.1 MG TAB PO SCH ×2 (08:57→19:51)
[2016-04-22] MEDS: CARVEDILOL 12.5 MG TAB PO SCH ×2 (08:57→19:51)
[2016-04-22] MEDS: HYDROXYCHLOROQUINE SULFATE 200 MG TAB PO SCH (08:58)
[2016-04-22] MEDS: ENOXAPARIN SODIUM 40 MG/0.4 ML SYRINGE SQ SCH (08:58)
[2016-04-22] MEDS: SODIUM CHLORIDE 0.9% FLUSH 5 ML FLUSH FLUSH SCH ×2 (09:00→19:54)
[2016-04-22] MEDS: HYDROmorphone HCL PF 1 MG/ML VIAL IV PRN ×2 (09:09→19:57)
--- NOTE | 2016-04-22 10:11 | HHI.NPPN ---
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 Additional Remarks Patient is alert, no SOB, eating well. Review of Systems Musculoskeletal MS: Pain/Stiffness Objective Data Data 04/21/16 04/22/16 19:00 07:00 Intake Total 1429 ml 1840 ml Balance 1429 ml 1840 ml Intake Oral 720 ml 720 ml IV Total 709 ml 1120 ml # Voids 5 7 # Bowel Movements 0 0 Vital Signs Date Time Temp Pulse Resp B/P Pulse Ox O2 Delivery O2 Flow Rate FiO2 04/22/16 08:00 54 16 152/92 100 04/22/16 06:17 140/75 04/22/16 04:00 97.9 58 17 188/101 98 175/90 04/22/16 01:35 159/81 04/22/16 00:00 96.8 68 16 179/103 97 04/21/16 20:00 98.2 76 17 153/99 98 04/21/16 16:00 97.8 70 18 142/90 97 04/21/16 12:00 97.0 73 16 140/90 98 -: 04/22/16 0552 04/22/16 0552 Physical Exam General Appearance: Well Developed Neck Neck Exam: Neck Supple Pulmonary Resp Exam: Clear Bilaterally Cardiology CV Exam: Regular, Normal Sinus Rhythm Gastrointestinal/Abdomen GI Exam: Soft, Non-Tender, Bowel Sounds Present Integumentary Skin Exam: Clear Extremeties Extremities Exam: No Edema Assessment/Plan Problem List: (1) Acute kidney injury Plan: C3 normal RA increased 780 RBC in urine agree with SoluMedrol Will D/C Cellcept as it did not work in past as per patient. If NORBERTO positive, will check Anti DNA. Creatinine close to his baseline. (2) HTN (hypertension) Plan: home meds resumed needs better BP control clonidine added, monitor response add Ativan as anxious 0.5 mg q 12 prn (3) Intractable pain Plan: pain control avoid NSAIDs (4) SLE (systemic lupus erythematosus) Plan: and RA, ESR is elevated he is on prednisone 15 mg BID, solumedrol started IV also on Plaquenil per home dosage, monitor clinically Sherie Robert MD Apr 22, 2016 10:11
[2016-04-22] MEDS: predniSONE 10 MG TAB PO SCH ×2 (11:18→19:52)
--- NOTE | 2016-04-22 12:32 | HHI.PR ---
Subjective Remarks Patient has pain improving and better than yesterday. Current medications are helping him Some swelling of the right leg Some mild headache generalized No other associated symptoms Had bowel movement No other complaint Review of system for 10 point system otherwise unremarkable Objective Objective Results - Vital Signs Date Time Temp Pulse Resp B/P Pulse Ox O2 Delivery O2 Flow Rate FiO2 04/22/16 08:00 54 16 152/92 100 04/22/16 06:17 140/75 04/22/16 04:00 97.9 58 17 188/101 98 175/90 04/22/16 01:35 159/81 04/22/16 00:00 96.8 68 16 179/103 97 04/21/16 20:00 98.2 76 17 153/99 98 04/21/16 16:00 97.8 70 18 142/90 97 I/O 04/21/16 04/21/16 04/21/16 04/22/16 04/22/16 04/22/16 07:00 15:00 23:00 07:00 15:00 23:00 Intake Total 800 ml 1429 ml 1040 ml 800 ml Balance 800 ml 1429 ml 1040 ml 800 ml Intake Oral 240 ml 720 ml 480 ml 240 ml IV Total 560 ml 709 ml 560 ml 560 ml # Voids 3 5 4 3 # Bowel Movements 0 0 Result Diagram: 04/22/16 0552 04/22/16 0552 Imaging none Other Results Laboratory Tests Test 04/22/16 05:52 White Blood Count 8.1 Red Blood Count 4.60 Hemoglobin 13.0 Hematocrit 38.9 Mean Corpuscular Volume 84.6 Mean Corpuscular Hemoglobin 28.3 Mean Corpuscular Hemoglobin 33.5 Concent Red Cell Distribution Width 13.5 Platelet Count 199 Mean Platelet Volume 8.3 Sodium Level 141 Potassium Level 3.8 Chloride Level 107 Carbon Dioxide Level 25.4 Anion Gap 9 Blood Urea Nitrogen 21 Creatinine 1.55 Estimat Glomerular Filtration 54 Rate Random Glucose 99 Calcium Level 8.1 Physical Exam Physical Exam GENERAL: This is a well-nourished, well-developed patient, in mild joint pain / distress. SKIN: No rashes, ecchymoses or lesions. Cool and dry. HEAD: Atraumatic. Normocephalic. No temporal or scalp tenderness. EYES: Pupils equal round and reactive. Extraocular motions intact. No scleral icterus. No injection or drainage. ENT: Airway patent. NECK: Trachea midline. Supple, nontender CARDIOVASCULAR: Regular rate and rhythm without murmurs, gallops, or rubs. No pedal edema, RESPIRATORY: Clear to auscultation. Breath sounds equal bilaterally. No wheezes , rales, or rhonchi. GASTROINTESTINAL: Abdomen soft, non-tender, nondistended. No hepato-splenomegaly , or palpable masses. No guarding. MUSCULOSKELETAL: Extremities with clubbing repair lt foot. , No cyanosis, and some edema right leg. Positive for joint tenderness left and right wrist, no effusion, mild edema noted. No calf tenderness. Left hand and fingers abnormal curvature. Secondary to her rheumatoid arthritis . Very mild edema of right lower leg near ankle NEUROLOGICAL: Awake and alert. Cranial nerves II through XII intact. Motor and sensory grossly within normal limits. Five out of 5 muscle strength in all muscle groups. Normal speech. A/P Assessment and Plan Diagnoses: (1) Hypertensive urgency (2) Intractable pain (3) CKD (chronic kidney disease), stage III (4) RA (rheumatoid arthritis) (5) Acute kidney injury Plan Increased Coreg dose and monitor BP during hospital stay. Added clonidine. On when necessary basis medication for high BP Schedule by mouth pain meds, Percocet around the clock, on Dilaudid on a when necessary basis evaluate time in specific location of pain and document. Appreciate nephrology input CellCept DC'd Labs reviewed. Stable creatinine. Continue home medication as indicated Continue IV hydration Was on IV steroid short course. Now on by mouth as he was on chronic view of steroid As outpatient he needs to follow magnetizer. No magnetizer available in this hospital. Labs reviewed Repeat labs tomorrow Ultrasound of the right lower extremity negative for DVT The DVT prophylaxis including SCDs PUD prophylaxis Discussed with patient Discussed with RN Discussed With: Nurse, Other (Dr. Combs, and patient) Dorie Combs MD Apr 22, 2016 12:32
[2016-04-22 14:45] LABS: ANA SCREEN POS (NEG)
[2016-04-22] MEDS: ONDANSETRON HCL 4 MG/2 ML VIAL IVP PRN (20:10)
[2016-04-22] MEDS: ZOLPIDEM TARTRATE 5 MG TAB PO PRN (21:57)
[2016-04-23] VITALS (7 sets, daily range): BP systolic 124–181; BP diastolic 75–111; PULSE 55–83; RESP 16–18; TEMP 96.5–98.4; O2SAT 95–99
[2016-04-23] MEDS: LORazepam 0.5 MG TAB PO PRN ×2 (00:23→11:33)
[2016-04-23] MEDS: cloNIDine HCL 0.1 MG TAB PO PRN (00:30)
[2016-04-23] MEDS: hydrALAZINE HCL 10 MG TAB PO PRN (03:28)
[2016-04-23] MEDS: oxyCODONE/ACETAMINOPHEN 10 MG/325 MG TAB PO PRN ×4 (03:29→20:46)
[2016-04-23] MEDS ORDERED: NITROGLYCERIN 0.3 MG SL 100 TABS/BTL SL PRN (04:00)
[2016-04-23 04:32] LABS: MEAN CELL VOLUME 84.1 FL (80.0-100.0); MEAN CORPUSCULAR HEMOGLOBIN 28.9 PG (27.0-34.0); MEAN CORPUSCULAR HGB CONC 34.4 % (32.0-36.0); PLATELET COUNT 242 TH/MM3 (150-450); RED BLOOD COUNT 4.64 MIL/MM3 (4.50-5.90); RED CELL DISTRIBUTION WIDTH 13.4 % (11.6-17.2); REVIEW FLAG FINAL; WHITE BLOOD COUNT 8.1 TH/MM3 (4.0-11.0)
[2016-04-23] MEDS: HYDROmorphone HCL PF 1 MG/ML VIAL IV PRN ×4 (04:48→23:17)
[2016-04-23] MEDS: amLODIPine BESYLATE 5 MG TAB PO SCH ×2 (04:49→09:45)
[2016-04-23 04:54] LABS: ANION GAP 8 MEQ/L (5-15); BICARBONATE 26.5 MEQ/L (21.0-32.0); BLOOD UREA NITROGEN 21 MG/DL (7-18); CHLORIDE 106 MEQ/L (98-107); GLOMERULAR FILTRATION RATE 49 ML/MIN (>89); POTASSIUM 3.5 MEQ/L (3.5-5.1); SODIUM (NA) 140 MEQ/L (136-145)
--- NOTE | 2016-04-23 05:58 | RADRPT ---
EXAM DATE/TIME: 04/23/2016 03:57 CORRECTION Corrected on: April 23, 2016; [facility] COMPARISON: CHEST PA & LAT, March 16, 2013, 12:19. INDICATIONS : Chest pain. MEDICAL HISTORY : Hypertension. Lupus. Interstitial lung disease. Asthma. SURGICAL HISTORY : Lung biopsy. ENCOUNTER: Subsequent ACUITY: 3 days PAIN SCORE: Non-responsive. LOCATION: Bilateral chest FINDINGS: There is a small area of stable scarring in the lateral right midlung. No evidence of infiltrate or e ffusion. Cardiomediastinal contours are satisfactory. CONCLUSION: No acute disease Juan C Ramírez MD on April 23, 2016 at 6:03 Board Certified Radiologist. This report was verified electronically.
[2016-04-23] MEDS: SODIUM CHLORIDE 0.9% FLUSH 5 ML FLUSH FLUSH SCH ×2 (09:00→20:47)
[2016-04-23] MEDS: predniSONE 10 MG TAB PO SCH ×2 (09:44→20:47)
[2016-04-23] MEDS: ENOXAPARIN SODIUM 40 MG/0.4 ML SYRINGE SQ SCH (09:44)
[2016-04-23] MEDS: CARVEDILOL 12.5 MG TAB PO SCH ×2 (09:45→20:47)
[2016-04-23] MEDS: HYDROXYCHLOROQUINE SULFATE 200 MG TAB PO SCH (09:45)
[2016-04-23] MEDS: cloNIDine HCL 0.1 MG TAB PO SCH ×2 (09:45→20:47)
[2016-04-23] MEDS: PANTOPRAZOLE SOD 40 MG DELAYED RELEASE TAB PO SCH (09:45)
--- NOTE | 2016-04-23 10:18 | EKG ---
Date Performed: 04/23/2016 Time Performed: 04:10:30 PTAGE: 25 years EKG: SINUS BRADYCARDIA BORDERLINE ECG Compared to the PREVIOUS TRACING , T wave abnormality has resolved PREVIOUS TRACIN07/05/2009 09.07 DOCTOR: Ramón Castellanos Interpretating Date/Time 04/23/2016 10:16:58
[2016-04-23] MEDS: SODIUM CHLOR 0.9% 1000 ML INJ 1,000 ML IV SCH (11:36)
--- NOTE | 2016-04-23 12:51 | HHI.PR ---
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 at [facility] making urine ok appetite poor, "I'm not hungry" mother at [facility] Review of Systems Constitutional Constitutional Remarks 12 point ROS completed, negative except as noted above Vitals/Results Intake & Output 04/22/16 04/22/16 04/23/16 15:00 23:00 07:00 Intake Total 480 ml 1282 ml 480 ml Balance 480 ml 1282 ml 480 ml Intake Oral 480 ml 480 ml 480 ml IV Total 802 ml # Voids 3 3 # Bowel Movements 1 Vital Signs Vital Signs Date Time Temp Pulse Resp B/P Pulse Ox O2 Delivery O2 Flow Rate FiO2 04/23/16 08:00 96.8 64 16 135/91 99 04/23/16 04:00 55 16 181/107 98 04/23/16 03:30 97.0 55 18 178/111 98 04/23/16 00:25 97.0 65 18 159/102 04/22/16 20:00 97.4 57 16 144/94 97 04/22/16 16:00 97.7 57 18 152/100 99 CBC/BMP: 04/23/16 0412 04/23/16 0412 Lab Results Laboratory Tests Test 04/23/16 04:12 White Blood Count 8.1 TH/MM3 Red Blood Count 4.64 MIL/MM3 Hemoglobin 13.4 GM/DL Hematocrit 39.0 % Mean Corpuscular Volume 84.1 FL Mean Corpuscular Hemoglobin 28.9 PG Mean Corpuscular Hemoglobin 34.4 % Concent Red Cell Distribution Width 13.4 % Platelet Count 242 TH/MM3 Mean Platelet Volume 7.9 FL Sodium Level 140 MEQ/L Potassium Level 3.5 MEQ/L Chloride Level 106 MEQ/L Carbon Dioxide Level 26.5 MEQ/L Anion Gap 8 MEQ/L Blood Urea Nitrogen 21 MG/DL Creatinine 1.70 MG/DL Estimat Glomerular Filtration 49 ML/MIN Rate Random Glucose 104 MG/DL Calcium Level 8.1 MG/DL Troponin I LESS THAN 0.02 NG/ML Physical Exam General General Appearance: Well Developed, Anxious, Painful Eyes Eye Exam: Pupils Equal, Pupils Reactive Ears & Nose Ears & Nose Exam: Nasal Mucosa [place] Throat Throat Exam: Oral Mucosa [place] & Moist Neck Neck Exam: Neck Supple Pulmonary Resp Exam: Clear Bilaterally Cardiology CV Exam: Regular, Normal Sinus Rhythm Gastrointestinal/Abdomen GI Exam: Soft, Non-Tender, Bowel Sounds Present, Non-Distended Musculoskeletal MS Remarks joint deformities noted secondary to RA Integumentary Skin Exam: Clear Extremeties Extremities Exam: No Edema, Pedal Pulses Palpable Neurologic Neuro Exam: Alert, Awake, Oriented, Speech Clear, Moving All Extremities, No Focal Deficits Psychiatric Psych Exam: Appropriate Responses VTE Prophylaxis VTE Prophylaxis Meds: Lovenox PUD Prophylasis PUD Prophylaxis: Protonix Assessment/Plan Problem List: (1) Intractable pain (2) Hypertensive urgency (3) Acute kidney injury (4) CKD (chronic kidney disease), stage III (5) RA (rheumatoid arthritis) (6) SLE (systemic lupus erythematosus) (7) HTN (hypertension) (8) Hx of lupus nephritis Assessment/Plan BP control, continue with Coreg, started on Norvasc last night continue with PRN meds, Clonidine, Hydralazine Renal function improving slowly continue with NS @ 75hr/ Appreciate nephrology input-Cellcept d/c, changed from IV steroids to Prednisone 10 mg po bid NORBERTO + RF titer 780 continue Plaquenil Pain management, continue Percocet and Dilaudid Anxiety, inc. Ativan to 0.5 mg po q 8 PRN Chest pain last night, trop and EKG done, no evidence of ACS CXR no acute findings likely due to anxiety, has diffuse pain Needs to f/u as OP with weight and balance control agent, f/u with physicians at [facility]. No rheumatology services at this facility Right ankle pain, negative for DVT Improving slowly DC planning 1-2 days BMP in am D/W RN D/W Dr. Cintron D/W pt, mother This patient was seen by myself and Dr. Cintron, this note is written on his behalf. Problem Qualifiers (1) RA (rheumatoid arthritis): Qualified Code: M06.9 - Rheumatoid arthritis involving multiple sites, unspecified rheumatoid factor presence (2) SLE (systemic lupus erythematosus): Qualified Code: M32.9 - Systemic lupus erythematosus, unspecified SLE type, unspecified organ involvement status (3) HTN (hypertension): Qualified Code: I10 - Essential hypertension Karina Gramajo Apr 23, 2016 12:51
[2016-04-23] MEDS ORDERED: LORazepam 0.5 MG TAB PO PRN (14:00)
--- NOTE | 2016-04-23 16:39 | HHI.NPPN ---
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 Additional Remarks Patient is alert, eating better, no SOB, not in distress. Review of Systems Musculoskeletal MS: Pain/Stiffness Objective Data Data 04/22/16 04/23/16 19:00 07:00 Intake Total 1282 ml 960 ml Balance 1282 ml 960 ml Intake Oral 480 ml 960 ml IV Total 802 ml # Voids 3 3 # Bowel Movements 1 Vital Signs Date Time Temp Pulse Resp B/P Pulse Ox O2 Delivery O2 Flow Rate FiO2 04/23/16 12:00 96.7 83 18 124/75 99 04/23/16 08:00 96.8 64 16 135/91 99 04/23/16 04:00 55 16 181/107 98 04/23/16 03:30 97.0 55 18 178/111 98 04/23/16 00:25 97.0 65 18 159/102 04/22/16 20:00 97.4 57 16 144/94 97 -: 04/23/16 0412 04/23/16 0412 Physical Exam General Appearance: Well Developed, Anxious, Painful Eyes Eye Exam: Pupils Equal, Pupils Reactive Ears & Nose Ears & Nose Exam: Nasal Mucosa [place] Throat Throat Exam: Oral Mucosa [place] & Moist Neck Neck Exam: Neck Supple Pulmonary Resp Exam: Clear Bilaterally Cardiology CV Exam: Regular, Normal Sinus Rhythm Gastrointestinal/Abdomen GI Exam: Soft, Non-Tender, Bowel Sounds Present, Non-Distended Integumentary Skin Exam: Clear Extremeties Extremities Exam: No Edema, Pedal Pulses Palpable Neurologic Neuro Exam: Alert, Awake, Oriented, Speech Clear, Moving All Extremities, No Focal Deficits Psychiatric Psych Exam: Appropriate Responses PUD Prophylasis PUD Prophylaxis: Protonix Assessment/Plan Problem List: (1) Acute kidney injury Plan: C3 normal RA increased 780 RBC in urine agree with SoluMedrol Will D/C Cellcept as it did not work in past as per patient. NORBERTO is positive, will check Anti DNA. Creatinine now 1.7. Possibly will need kidney Biopsy and consider Cytoxan, if Anti DNA is positive. BP is better, started on Amlodipine 5 mg daily. (2) HTN (hypertension) Plan: home meds resumed needs better BP control clonidine added, monitor response add Ativan as anxious 0.5 mg q 12 prn (3) Intractable pain Plan: pain control avoid NSAIDs (4) SLE (systemic lupus erythematosus) Plan: and RA, ESR is elevated he is on prednisone 15 mg BID, solumedrol started IV also on Plaquenil per home dosage, monitor clinically Problem Qualifiers (1) HTN (hypertension): Qualified Code: I10 - Essential hypertension (2) SLE (systemic lupus erythematosus): Qualified Code: M32.9 - Systemic lupus erythematosus, unspecified SLE type, unspecified organ involvement status Sherie Robert MD Apr 23, 2016 16:39
[2016-04-23] MEDS: ONDANSETRON HCL 4 MG/2 ML VIAL IVP PRN (17:25)
[2016-04-23] MEDS: ZOLPIDEM TARTRATE 5 MG TAB PO PRN (20:47)
[2016-04-24] VITALS: BP 143/88; PULSE 73; RESP 18; TEMP 97.5; O2SAT 99
[2016-04-24] MEDS: SODIUM CHLOR 0.9% 1000 ML INJ 1,000 ML IV SCH (00:36)
[2016-04-24 04:00] VITALS: BP 113/79; PULSE 85; RESP 16; TEMP 97.2; O2SAT 98
[2016-04-24] MEDS: oxyCODONE/ACETAMINOPHEN 10 MG/325 MG TAB PO PRN (04:50)
[2016-04-24 08:00] VITALS: BP 175/90; PULSE 68; RESP 20; TEMP 97.3; O2SAT 96
[2016-04-24 09:03] LABS: BICARBONATE 30.6 MEQ/L (21.0-32.0); POTASSIUM 3.6 MEQ/L (3.5-5.1)
[2016-04-24] MEDS: predniSONE 10 MG TAB PO SCH (09:49)
[2016-04-24] MEDS: amLODIPine BESYLATE 5 MG TAB PO SCH (09:49)
[2016-04-24] MEDS: CARVEDILOL 12.5 MG TAB PO SCH (09:49)
[2016-04-24] MEDS: PANTOPRAZOLE SOD 40 MG DELAYED RELEASE TAB PO SCH (09:49)
[2016-04-24] MEDS: HYDROXYCHLOROQUINE SULFATE 200 MG TAB PO SCH (09:49)
[2016-04-24] MEDS: cloNIDine HCL 0.1 MG TAB PO SCH (09:49)
[2016-04-24] MEDS: ENOXAPARIN SODIUM 40 MG/0.4 ML SYRINGE SQ SCH (09:50)
[2016-04-24] MEDS: SODIUM CHLORIDE 0.9% FLUSH 5 ML FLUSH FLUSH SCH (09:50)
--- NOTE | 2016-04-24 10:07 | HHI.PR ---
Subjective Subjective Remarks generalized joint pain anxiety improving BP better very anxious, "I don't have pain problem" mother at bsd no fever voiding okay wants to have kidney bx Review of Systems Constitutional Constitutional Remarks 12 point ROS completed, negative except as noted above Vitals/Results Intake & Output 04/23/16 04/23/16 04/24/16 15:00 23:00 07:00 Intake Total 1723 ml 720 ml 240 ml Balance 1723 ml 720 ml 240 ml Intake Oral 360 ml 720 ml 240 ml IV Total 1363 ml # Voids 2 2 2 # Bowel Movements 1 Vital Signs Vital Signs Date Time Temp Pulse Resp B/P Pulse Ox O2 Delivery O2 Flow Rate FiO2 04/24/16 04:00 97.2 85 16 113/79 98 04/24/16 00:00 97.5 73 18 143/88 99 04/23/16 20:00 98.4 73 18 134/86 98 04/23/16 16:00 96.5 78 16 139/96 95 04/23/16 12:00 96.7 83 18 124/75 99 CBC/BMP: 04/23/16 0412 04/24/16 0740 Lab Results Laboratory Tests Test 04/24/16 07:40 Sodium Level 139 MEQ/L Potassium Level 3.6 MEQ/L Chloride Level 102 MEQ/L Carbon Dioxide Level 30.6 MEQ/L Anion Gap 6 MEQ/L Blood Urea Nitrogen 20 MG/DL Creatinine 1.67 MG/DL Estimat Glomerular Filtration 50 ML/MIN Rate Random Glucose 92 MG/DL Calcium Level 8.2 MG/DL Phosphorus Level 3.0 MG/DL Physical Exam General General Appearance: Well Developed, Anxious, Painful Eyes Eye Exam: Pupils Equal, Pupils Reactive Ears & Nose Ears & Nose Exam: Nasal Mucosa [place] Throat Throat Exam: Oral Mucosa [place] & Moist Neck Neck Exam: Neck Supple Pulmonary Resp Exam: Clear Bilaterally Cardiology CV Exam: Regular, Normal Sinus Rhythm Gastrointestinal/Abdomen GI Exam: Soft, Non-Tender, Bowel Sounds Present, Non-Distended Musculoskeletal MS Remarks joint deformities noted secondary to RA Integumentary Skin Exam: Clear, Warm, Dry Extremeties Extremities Exam: No Edema, Pedal Pulses Palpable Neurologic Neuro Exam: Alert, Awake, Oriented, Speech Clear, Moving All Extremities, No Focal Deficits Psychiatric Psych Exam: Appropriate Responses VTE Prophylaxis VTE Prophylaxis Meds: Lovenox PUD Prophylasis PUD Prophylaxis: Protonix Assessment/Plan Problem List: (1) Intractable pain (2) Hypertensive urgency (3) Acute kidney injury (4) CKD (chronic kidney disease), stage III (5) RA (rheumatoid arthritis) (6) SLE (systemic lupus erythematosus) (7) HTN (hypertension) (8) Hx of lupus nephritis Assessment/Plan BP control, continue with Coreg, Norvasc continue with PRN meds, Clonidine, Hydralazine Renal function improving slowly D/C IVF Appreciate nephrology input-Cellcept d/c, changed from IV steroids to Prednisone 10 mg po bid NORBERTO + RF titer 780 continue Plaquenil per nephrology, possibly will need kidney Biopsy and consider Cytoxan, if Anti DNA is positive. Pain management, continue Percocet and Dilaudid Anxiety, inc. 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 No rheumatology services at this facility Right ankle pain, negative for DVT Improving DC planning 1-2 days BMP in am will wait for nephrology to clear D/W RN D/W Dr. Cintron D/W pt, mother This patient was seen by myself and Dr. Cintron, this note is written on his behalf. Problem Qualifiers (1) RA (rheumatoid arthritis): Qualified Code: M06.9 - Rheumatoid arthritis involving multiple sites, unspecified rheumatoid factor presence (2) SLE (systemic lupus erythematosus): Qualified Code: M32.9 - Systemic lupus erythematosus, unspecified SLE type, unspecified organ involvement status (3) HTN (hypertension): Qualified Code: I10 - Essential hypertension Karina Gramajo Apr 24, 2016 10:07
[2016-04-24 11:50] VITALS: BP 137/98; PULSE 73; RESP 20; TEMP 96.6; O2SAT 97
[2016-04-24] MEDS: HYDROmorphone HCL PF 1 MG/ML VIAL IV PRN (13:47)
[2016-04-24] MEDS ORDERED: CARV12.5 PO (14:03)
[2016-04-24] MEDS ORDERED: PRED10 PO (14:03)
[2016-04-24] MEDS ORDERED: AMLO5 PO (14:03)
--- NOTE | 2016-04-24 14:04 | HHI.DCPOC ---
Discharge Care Plan Diagnosis: (1) RA (rheumatoid arthritis) (2) CKD (chronic kidney disease), stage III (3) Hypertensive urgency (4) Intractable pain (5) Acute kidney injury (6) SLE (systemic lupus erythematosus) (7) HTN (hypertension) (8) Hx of lupus nephritis Your Health Problems Are: Anxiety Difficulty with ADL Goals to Promote Your Health * To prevent worsening of your condition and complications * To maintain your health at the optimal level Directions to Meet Your Goals Take your medications as prescribed Follow your dietary instruction Follow activity as directed Keep your appointments as scheduled Take your immunizations and boosters as scheduled If your symptoms worsen call your PCP, if no PCP go to Urgent Care Center or Emergency Room Smoking is Dangerous to Your Health. Avoid second hand smoke Call the 24-hour hour crisis hotline for domestic abuse at Karina Gramajo Apr 24, 2016 14:03
--- NOTE | 2016-04-24 14:05 | HHI.DS ---
Discharge Summary Admission Date Apr 21, 2016 at 13:06 Discharge Date: Apr 24, 2016 Admitting Diagnosis SHAKA, arthritis pain (1) Intractable pain Diagnosis: Principal (2) Hypertensive urgency (3) CKD (chronic kidney disease), stage III (4) RA (rheumatoid arthritis) (5) Acute kidney injury Diagnosis: Principal (6) SLE (systemic lupus erythematosus) (7) HTN (hypertension) (8) Hx of lupus nephritis CBC/BMP: 04/23/16 0412 04/24/16 0740 Significant Findings Laboratory Tests Test 04/22/16 04/23/16 04/24/16 05:52 04:12 07:40 Hematocrit 38.9 % (39.0-51.0) Blood Urea Nitrogen 21 MG/DL (7-18) 21 MG/DL (7-18) 20 MG/DL (7-18) Creatinine 1.55 MG/DL 1.70 MG/DL 1.67 MG/DL (0.60-1.30) (0.60-1.30) (0.60-1.30) Estimat Glomerular Filtration 54 ML/MIN (>89) 49 ML/MIN (>89) 50 ML/MIN (>89) Rate Calcium Level 8.1 MG/DL 8.1 MG/DL 8.2 MG/DL (8.5-10.1) (8.5-10.1) (8.5-10.1) Troponin I LESS THAN 0.02 NG/ML (0.02-0.05) Imaging Last Impressions Chest X-Ray 04/23/16 0000 Signed Impressions: Service Date/Time: Saturday, April 23, 2016 03:57 - CONCLUSION: No acute disease Juan C Ramírez MD Lower Extremity Ultrasound 04/21/16 0000 Signed Impressions: Service Date/Time: Thursday, April 21, 2016 16:38 - CONCLUSION: Negative for deep venous thrombosis. Vickey Kaur MD FACR Renal Ultrasound 04/19/16 1352 Signed Impressions: Service Date/Time: Tuesday, April 19, 2016 16:54 - CONCLUSION: Echogenic appearance of the kidneys consistent with medical renal disease. Juan C Salcedo MD Hospital Course This is a 25-year-old male who presented to the emergency room with uncontrolled back pain, shoulder pain ,headache, and swelling of the right wrist. He also complains of not sleeping for the past 3-4 days, and states that he has been nauseated with very minimal appetite. Patient denies any fever and has had no weight gain or weight loss more than 2 or 3 pounds. Hx of RA and SLE, he is on Prednisone and Plaquenil at home. His pain medications have not been working the past few days. Creatinine 2.2 on arrival, he has a hx of CKD for which he follows with a physician at [facility] in [place] every 3 months. He had a biopsy in January of 2015. His last creatinine was 1.46 in November 2015 per [place] [facility] records patient had access to with his phone, GFR in 50s. No reports of urinary retention. He also has a hx of HTN and interstitial lung disease, had a biopsy as a child, has "honeycombed lungs" per pt. 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 Pt. was admitted for the following: (1) Intractable pain (2) Hypertensive urgency (3) Acute kidney injury (4) CKD (chronic kidney disease), stage III (5) RA (rheumatoid arthritis) (6) SLE (systemic lupus erythematosus) (7) HTN (hypertension) (8) Hx of lupus nephritis During hospitalization, the following took place: IVF started, pain management, nephrology consulted renal function was monitored BP was initially elevated, required additional medications. It improved. Continued with Coreg (dose increase) and started on Norvasc Provided PRN meds, Clonidine, Hydralazine Renal function improved IVF eventually discontinued. Appreciated nephrology input-Cellcept d/c's, changed from IV steroids to Prednisone 15 mg po bid Laboratory work up done, showed NORBERTO + RF titer 780 continued Plaquenil per nephrology, possibly will need kidney Biopsy and to consider Cytoxan, if Anti DNA is positive. pt. can f/u as op for further work up Pain management, continue Percocet and Dilaudid. Pain did improve some. 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 No rheumatology services at this facility. Pt. and mother aware, understood that they need to find specialist in the area Pt.'s renal function improved pain managed Cleared for dc by nephrology on current dose of steroids Pt. stable, was discharged home Instructed: F/U Dr. Robbins, tool profiling machine set up operator of choice Diet-heart healthy Activity-as tolerated Pt Condition on Discharge: Stable Discharge Disposition: Discharge Home Discharge Instructions DIET: Follow Instructions for: Heart Healthy Diet Activities you can perform: Weight Bearing as Marilyn Follow up Referrals: Nephrology - [address] MADRIGAL PCP Follow-up Rheumatology New Medications: Amlodipine (Norvasc) 5 Mg Tab 5 MG PO DAILY Blood Pressure Management #30 Ref 0 TAB Carvedilol (Coreg) 12.5 Mg Tab 12.5 MG PO Q12HR Blood Pressure Management #60 Ref 1 TAB Prednisone (Prednisone) 10 Mg Tab 10 MG PO BID Inflammation #60 Ref 1 TAB Continued Medications: Hydrocodone-Acetaminophen ([place]olph) 10-325 Mg Tab 1 TAB PO Q6H PRN PAIN Ref 0 TAB Hydroxychloroquine (Plaquenil) 200 Mg Tab 300 MG PO DAILY Take with food #30 Ref 0 TAB Pantoprazole (Protonix) 20 Mg Tab 20 MG PO DAILY Reflux #30 Ref 0 TAB Discontinued Medications: Carvedilol (Carvedilol) 6.25 Mg Tab 6.25 MG PO BID #60 Ref 0 TAB Prednisone (Prednisone) 5 Mg Tab 15 MG PO BID Ref 0 TAB Karina Gramajo Apr 24, 2016 14:05
[2016-04-24] MEDS ORDERED: OXYC1TAB36 PO (14:16)
[2016-04-24 15:00] VITALS: BP 137/83; PULSE 79; RESP 20; TEMP 96.8; O2SAT 97
== END 2016-04-24 15:53 | disposition home or self-care (01) | DRG 546 ==
LOC: NEPC 03:29 → NEDA 06:24 → INTOOBSV 06:24 → HOCA 10:56 → OBSVTOIN 04-21 13:06 → HOCA 04-23 19:32
PROVIDERS: ADMIT Specialist; ATTEND Specialist
DX: M06.9 Rheumatoid arthritis, unspecified (principal); N17.9 Acute kidney failure, unspecified; M32.14 Glomerular disease in systemic lupus erythematosus; N18.3 Chronic kidney disease, stage 3 (moderate); I16.0 Hypertensive urgency; I12.9 Hypertensive chronic kidney disease with stage 1 through stage 4 chronic kidney disease, or unspecified chronic kidney disease; F41.9 Anxiety disorder, unspecified; R07.89 Other chest pain
CPT/HCPCS: 71010; 76775; 80048; 80053; 81001; 84100; 84484; 85025; 85027; 85652; 86038; 86039; 86160; 86225; 86430; 93005; 93971; 96374; 96375; 96376; G0378; J0360; J1170; J1650; J2270; J2405; J2920; J7030; J7512; J7517

== ENCOUNTER 2016-05-06 12:42 | Inpatient (IN) | payer MEDICAID, OTHER ==
[2016-05-06] VITALS (7 sets, daily range): BP systolic 122–141; BP diastolic 84–94; PULSE 76–89; RESP 16–20; TEMP 97.4–98.2; O2SAT 95–97
[~2016-05-06] VITALS: Ht 165.1 cm; Wt 66.3 kg
[~2016-05-06 12:42] MED LIST changes: -ALEN5TAB PO; +AMLO5 PO; +CARV12.5 PO; -FAMO20 PO; +HYDR-3366 PO; -HYDR200T42 PO; -LOSA50TA PO; -NORC7.5T PO; +OXYC1TAB36 PO; +PLAQ200T PO; +PRED10 PO; -PRED5SOL PO; -Z.0.NO CURRENT MEDS
--- NOTE | 2016-05-06 14:00 | PD ---
HPI Chief Complaint: Respiratory Symptoms Time Seen by Provider: 13:58 Travel History International Travel<30 days: No Contact w/Intl Traveler<30days: No Traveled to known affect area: No History of Present Illness HPI 25-year-old male with history of SLE, RA, and interstitial lung disease, presents to emergency department for evaluation of left-sided flank pain, acute onset 3 hours ago. Patient states he has had increase in urine. No significant pain. He has been nauseous today with diarrhea as well. He states that he does have blood in his diarrhea but this is a constant thing for him with his stools. He also reports some tightness with breathing that is more than his usual. Denies any cough or chest congestion. No fevers. He has felt chilled. He has no other symptoms to report this time. PFSH Past Medical History Arthritis: Yes Asthma: Yes (HISTORY 2003) Autoimmune Disease: No Blood Disorders: No Anxiety: No Depression: Yes Cardiovascular Problems: Yes (HTN) High Cholesterol: No Chemotherapy: No Chest Pain: No Congestive Heart Failure: No COPD: No Cerebrovascular Accident: No Diabetes: No Diminished Hearing: No Endocrine: No GERD: No Glaucoma: No Genitourinary: Yes Headaches: No Hepatitis: No Hiatal Hernia: No Hypertension: Yes Immune Disorder: Yes (SYSTEMIC LUPUS) Kidney Stones: No Musculoskeletal: No Neurologic: No Psychiatric: No Reproductive: No Respiratory: Yes (INTERSTITIAL LUNG DISEASE.) Immunizations Current: Yes Migraines: No Myocardial Infarction: No Radiation Therapy: No Renal Failure: No Seizures: No Sickle Cell Disease: No Sleep Apnea: No Thyroid Disease: No Ulcer: No Past Surgical History AICD: No Appendectomy: No Arteriovenous Shunt: No Cholecystectomy: No Joint Replacement: No Pacemaker: No Other Surgery: Yes (LUNG BIOPSY AT AGE 4) Social History Alcohol Use: Yes (SOCIAL) Tobacco Use: No Substance Use: Yes (MARIJUANA ) Allergies-Medications (Allergen,Severity, Reaction): Coded Allergies: Dilaudid (Verified Allergy, Severe, RASH, 05/06/16) Penicillin (Verified Allergy, Severe, RASH, 05/06/16) Latex (Verified Allergy, Unknown, 05/06/16) Uncoded Allergies: PLASTIC TAPE (Allergy, Severe, RASH, 11/27/08) Reported Meds & Prescriptions Reported Meds & Active Scripts Active Oxycodone-Acetaminophen 10-325 mg Tab 1 Tab PO Q6H PRN Prednisone 10 Mg Tab 10 Mg PO BID Norvasc (Amlodipine Besylate) 5 Mg Tab 5 Mg PO DAILY Coreg (Carvedilol) 12.5 Mg Tab 12.5 Mg PO Q12HR Reported Protonix (Pantoprazole Sodium) 20 Mg Tab 20 Mg PO DAILY [place] (Hydrocodone-Acetaminophen) 10-325 Mg Tab 1 Tab PO Q6H PRN Plaquenil (Hydroxychloroquine Sulfate) 200 Mg Tab 300 Mg PO DAILY Take with food Review of Systems Except as stated in HPI: all other systems reviewed are Neg Physical Exam Narrative GENERAL: Well-nourished male patient, ambulatory no acute distress SKIN: Warm and dry. HEAD: Atraumatic. Normocephalic. EYES: Pupils equal and round. No scleral icterus. No injection or drainage. ENT: No nasal bleeding or discharge. Mucous membranes pink and moist. NECK: Trachea midline. No JVD. CARDIOVASCULAR: Regular rate and rhythm. No murmur appreciated. RESPIRATORY: No accessory muscle use. Diminished to auscultation. Breath sounds equal bilaterally. GASTROINTESTINAL: Abdomen soft, non-tender, nondistended. Hepatic and splenic margins not palpable. MUSCULOSKELETAL: No obvious deformities. No clubbing. No cyanosis. No edema. Mild left-sided CVA tenderness. NEUROLOGICAL: Awake and alert. No obvious cranial nerve deficits. Motor grossly within normal limits. Normal speech. Data Data Last Documented VS Vital Signs Date Time Temp Pulse Resp B/P Pulse Ox O2 Delivery O2 Flow Rate FiO2 05/06/16 19:50 77 20 141/88 97 05/06/16 16:55 21 05/06/16 16:36 Room Air 05/06/16 15:11 97.4 Orders Complete Blood Count With Diff (05/06/16 13:55) Urinalysis - C+S If Indicated (05/06/16 13:55) Chest, Pa & Lat (05/06/16 ) Electrocardiogram (05/06/16 14:59) Ckmb (Isoenzyme) Profile (05/06/16 14:59) Comprehensive Metabolic Panel (05/06/16 14:59) Magnesium (Mg) (05/06/16 14:59) Prothrombin Time / Inr (Pt) (05/06/16 14:59) Act Partial Throm Time (Ptt) (05/06/16 14:59) Troponin I (05/06/16 14:59) Ecg Monitoring (05/06/16 14:59) Bilateral Bp Monitoring (05/06/16 14:59) Iv Access Insert/Monitor (05/06/16 14:59) Oximetry (05/06/16 14:59) Oxygen Administration (05/06/16 14:59) Morphine Inj (Morphine Inj) (05/06/16 15:00) Sodium Chloride 0.9% Flush (Ns Flush) (05/06/16 15:00) Sodium Chlorid 0.9% 500 Ml Inj (Ns 500 M (05/06/16 15:00) Sodium Chloride 0.9% Flush (Ns Flush) (05/06/16 15:15) Methylprednisolone So Succ Inj (Solumedr (05/06/16 15:15) Albuterol-Ipratropium Neb (Duoneb Neb) (05/06/16 15:15) Ct Pulmonary Angiogram (05/06/16 18:24) Iohexol 350 Inj (Omnipaque 350 Inj) (05/06/16 18:56) Diet Regular Basic (05/07/16 Dinner) Labs Laboratory Tests Test 05/06/16 05/06/16 05/06/16 05/06/16 14:15 14:40 16:30 17:00 Urine Color YELLOW Urine Turbidity CLEAR Urine pH 5.5 Urine Specific [place] 1.012 Urine Protein 100 mg/dL Urine Glucose (UA) NEG mg/dL Urine Ketones NEG mg/dL Urine Occult Blood MOD Urine Nitrite NEG Urine Bilirubin NEG Urine Urobilinogen LESS THAN 2.0 MG/DL Urine Leukocyte Esterase NEG Urine RBC 15 /hpf Urine WBC 2 /hpf Microscopic Urinalysis Comment CULT NOT INDICATED White Blood Count 6.7 TH/MM3 Red Blood Count 4.84 MIL/MM3 Hemoglobin 13.9 GM/DL Hematocrit 41.4 % Mean Corpuscular Volume 85.7 FL Mean Corpuscular Hemoglobin 28.7 PG Mean Corpuscular Hemoglobin 33.5 % Concent Red Cell Distribution Width 14.3 % Platelet Count 176 TH/MM3 Mean Platelet Volume 7.8 FL Neutrophils (%) (Auto) 71.3 % Lymphocytes (%) (Auto) 17.6 % Monocytes (%) (Auto) 5.0 % Eosinophils (%) (Auto) 6.0 % Basophils (%) (Auto) 0.1 % Neutrophils # (Auto) 4.8 TH/MM3 Lymphocytes # (Auto) 1.2 TH/MM3 Monocytes # (Auto) 0.3 TH/MM3 Eosinophils # (Auto) 0.4 TH/MM3 Basophils # (Auto) 0.0 TH/MM3 CBC Comment DIFF FINAL Differential Comment Sodium Level 138 MEQ/L Potassium Level 4.6 MEQ/L Chloride Level 109 MEQ/L Carbon Dioxide Level 21.3 MEQ/L Anion Gap 8 MEQ/L Blood Urea Nitrogen 25 MG/DL Creatinine 1.43 MG/DL Estimat Glomerular Filtration 59 ML/MIN Rate Random Glucose 80 MG/DL Calcium Level 8.3 MG/DL Magnesium Level 2.1 MG/DL Total Bilirubin 0.6 MG/DL Aspartate Amino Transf 18 U/L (AST/SGOT) Alanine Aminotransferase 35 U/L (ALT/SGPT) Alkaline Phosphatase 60 U/L Total Creatine Kinase 57 U/L Troponin I LESS THAN 0.02 NG/ML Total Protein 6.8 GM/DL Albumin 3.2 GM/DL Prothrombin Time 10.7 SEC Prothromb Time International 1.0 RATIO Ratio Activated Partial 26.3 SEC Thromboplast Time MDM Medical Decision Making Medical Screen Exam Complete: Yes Emergency Medical Condition: Yes Medical Record Reviewed: Yes Differential Diagnosis UTI versus renal calculi versus renal colic versus muscle strain versus spasm versus gastroenteritis versus colitis Narrative Course 25-year-old male presents to emergency department for evaluation. Patient appears overall without distress. He has mild left-sided flank pain. Patient was recently hospitalized and discharged April 24 following acute kidney injury. Work up was initiated in triage. Once a medical bed becomes available , patient will be transferred and care assumed by that provider. Condition: Stable Yee Cisneros May 06, 2016 14:00
[2016-05-06 14:30] LABS: BLOOD, URINE MOD (NEG); GLUCOSE,URINE NEG (NEG); KETONE, URINE NEG (NEG); NITRITE,URINE NEG (NEG); PH, URINE 5.5 (5.0-8.5); URINE COLOR YELLOW (YELLW/STRAW)
[2016-05-06 14:31] LABS: COMMENT (UR) CULT NOT INDICATED; CULTURE IF INDICATED CULT NOT INDICATED
--- NOTE | 2016-05-06 14:37 | RADRPT ---
EXAM DATE/TIME: 05/06/2016 14:36 [facility] COMPARISON: CHEST PA & LAT, March 16, 2013, 12:19. INDICATIONS : Very short of breath for one day MEDICAL HISTORY : Hypertension. Lupus. asthma, interstitial lung disease SURGICAL HISTORY : lung biopsy ENCOUNTER: Initial ACUITY: 1 day PAIN SCORE: 0/10 LOCATION: Bilateral chest FINDINGS: The cardiac silhouette is normal in transverse diameter. There are chronic fibrotic changes bilateral ly. There has been no significant change when compared to the prior exam. There is no evidence of pn eumonia. CONCLUSION: 1. Chronic fibrotic changes bilaterally unchanged from the prior study. No acute pulmonary disease. Alok Palma MD on May 06, 2016 at 14:31 Board Certified Radiologist. This report was verified electronically.
[2016-05-06] MEDS ORDERED: SODIUM CHLORIDE 0.9% FLUSH 5 ML FLUSH IVF PRN ×2 (15:00→15:15)
[2016-05-06] MEDS ORDERED: MORPHINE SULFATE 4 MG/ML INJ IV PUSH ONE (15:00)
[2016-05-06] MEDS ORDERED: SODIUM CHLORID 0.9% 500 ML INJ 500 ML IV ONE (15:00)
[2016-05-06] MEDS ORDERED: methylPREDNISolone SOD SUCC 125 MG/2 ML VIAL IVP ONE (15:15)
[2016-05-06 15:16] LABS: AUTOMATED NEUTROPHIL # 4.8 TH/MM3 (1.8-7.7); BASOPHIL % 0.1 % (0.0-2.0); EOSINOPHIL # 0.4 TH/MM3 (0-0.4); HEMATOCRIT 41.4 % (39.0-51.0); HEMO FLAGS DIFF FINAL; LYMPH % 17.6 % (9.0-44.0); LYMPHOCYTE # 1.2 TH/MM3 (1.0-4.8); MEAN CELL VOLUME 85.7 FL (80.0-100.0); MEAN CORPUSCULAR HEMOGLOBIN 28.7 PG (27.0-34.0); MEAN CORPUSCULAR HGB CONC 33.5 % (32.0-36.0); NEUT % 71.3 % (16.0-70.0); PLATELET COUNT 176 TH/MM3 (150-450); RED BLOOD COUNT 4.84 MIL/MM3 (4.50-5.90); RED CELL DISTRIBUTION WIDTH 14.3 % (11.6-17.2); WHITE BLOOD COUNT 6.7 TH/MM3 (4.0-11.0)
--- NOTE | 2016-05-06 15:20 | PD ---
Physical Exam Date Seen by Provider: May 06, 2016 Time Seen by Provider: 15:19 Narrative 25-year-old male with history of lupus previously seen in triage, and moved [facility]. Patient came in today with increasing chest discomfort with deep breaths and movement. Patient has chest tightness, which she has had the past when he's had pleurisy. Patient states it's been worse in the last few days. Patient does have pain medication at home however he states it is not helping. Data Data Last Documented VS Vital Signs Date Time Temp Pulse Resp B/P Pulse Ox O2 Delivery O2 Flow Rate FiO2 05/06/16 19:50 77 20 141/88 97 05/06/16 16:55 21 05/06/16 16:36 Room Air 05/06/16 15:11 97.4 Orders Complete Blood Count With Diff (05/06/16 13:55) Urinalysis - C+S If Indicated (05/06/16 13:55) Chest, Pa & Lat (05/06/16 ) Electrocardiogram (05/06/16 14:59) Ckmb (Isoenzyme) Profile (05/06/16 14:59) Comprehensive Metabolic Panel (05/06/16 14:59) Magnesium (Mg) (05/06/16 14:59) Prothrombin Time / Inr (Pt) (05/06/16 14:59) Act Partial Throm Time (Ptt) (05/06/16 14:59) Troponin I (05/06/16 14:59) Ecg Monitoring (05/06/16 14:59) Bilateral Bp Monitoring (05/06/16 14:59) Iv Access Insert/Monitor (05/06/16 14:59) Oximetry (05/06/16 14:59) Oxygen Administration (05/06/16 14:59) Morphine Inj (Morphine Inj) (05/06/16 15:00) Sodium Chloride 0.9% Flush (Ns Flush) (05/06/16 15:00) Sodium Chlorid 0.9% 500 Ml Inj (Ns 500 M (05/06/16 15:00) Sodium Chloride 0.9% Flush (Ns Flush) (05/06/16 15:15) Methylprednisolone So Succ Inj (Solumedr (05/06/16 15:15) Albuterol-Ipratropium Neb (Duoneb Neb) (05/06/16 15:15) Ct Pulmonary Angiogram (05/06/16 18:24) Iohexol 350 Inj (Omnipaque 350 Inj) (05/06/16 18:56) Admit Order (Ed Use Only) (05/06/16 20:17) Labs Laboratory Tests Test 05/06/16 05/06/16 05/06/16 05/06/16 14:15 14:40 16:30 17:00 Urine Color YELLOW Urine Turbidity CLEAR Urine pH 5.5 Urine Specific [place] 1.012 Urine Protein 100 mg/dL Urine Glucose (UA) NEG mg/dL Urine Ketones NEG mg/dL Urine Occult Blood MOD Urine Nitrite NEG Urine Bilirubin NEG Urine Urobilinogen LESS THAN 2.0 MG/DL Urine Leukocyte Esterase NEG Urine RBC 15 /hpf Urine WBC 2 /hpf Microscopic Urinalysis Comment CULT NOT INDICATED White Blood Count 6.7 TH/MM3 Red Blood Count 4.84 MIL/MM3 Hemoglobin 13.9 GM/DL Hematocrit 41.4 % Mean Corpuscular Volume 85.7 FL Mean Corpuscular Hemoglobin 28.7 PG Mean Corpuscular Hemoglobin 33.5 % Concent Red Cell Distribution Width 14.3 % Platelet Count 176 TH/MM3 Mean Platelet Volume 7.8 FL Neutrophils (%) (Auto) 71.3 % Lymphocytes (%) (Auto) 17.6 % Monocytes (%) (Auto) 5.0 % Eosinophils (%) (Auto) 6.0 % Basophils (%) (Auto) 0.1 % Neutrophils # (Auto) 4.8 TH/MM3 Lymphocytes # (Auto) 1.2 TH/MM3 Monocytes # (Auto) 0.3 TH/MM3 Eosinophils # (Auto) 0.4 TH/MM3 Basophils # (Auto) 0.0 TH/MM3 CBC Comment DIFF FINAL Differential Comment Sodium Level 138 MEQ/L Potassium Level 4.6 MEQ/L Chloride Level 109 MEQ/L Carbon Dioxide Level 21.3 MEQ/L Anion Gap 8 MEQ/L Blood Urea Nitrogen 25 MG/DL Creatinine 1.43 MG/DL Estimat Glomerular Filtration 59 ML/MIN Rate Random Glucose 80 MG/DL Calcium Level 8.3 MG/DL Magnesium Level 2.1 MG/DL Total Bilirubin 0.6 MG/DL Aspartate Amino Transf 18 U/L (AST/SGOT) Alanine Aminotransferase 35 U/L (ALT/SGPT) Alkaline Phosphatase 60 U/L Total Creatine Kinase 57 U/L Troponin I LESS THAN 0.02 NG/ML Total Protein 6.8 GM/DL Albumin 3.2 GM/DL Prothrombin Time 10.7 SEC Prothromb Time International 1.0 RATIO Ratio Activated Partial 26.3 SEC Thromboplast Time [facility] Medical Record Reviewed: Yes Supervised Visit with KARIN: Yes Differential Diagnosis Pleuritic chest pain. Lupus flare. Possible pulmonary embolism. Intractable pain. Narrative Course Patient is evaluated and given 4 mg morphine IV as well as 4 mg Zofran as well. Patient is given DuoNeb 3. Chest x-ray shows no acute findings. CBC is unremarkable. CMP shows normal electrolytes, BUN of 25, creatinine 1.43 which is the patient' s baseline. Troponin is less than 0.02. Albumin is 3.2. Urine shows proteinuria of 100 and urine occult blood with 15 RBCs per high- power field Coags are normal. Patient discussed with . Patient given [address] Campos Recommend CTA to rule out PE. CTA is negative for PE. Is felt the patient should be brought in for pain control and steroid treatment for his lupus flare and pleurisy. 1930 hrs. Call was placed to the [facility]. Diagnosis Primary Impression: SLE (systemic lupus erythematosus) Qualified Code: M32.13 - Other systemic lupus erythematosus with lung involvement Additional Impression: Intractable pain Admitting Information Admitting Physician Requests: Admit Condition: Stable Rigoberto Mar May 06, 2016 15:20
[2016-05-06] MEDS: RESP: ALBUTEROL 2.5 MG/IPRATROPIUM 0.5 MG NEB (SCH) INH ×3 (16:53→17:34)
[2016-05-06 17:11] LABS: ALT (GPT) 35 U/L (12-78); ANION GAP 8 MEQ/L (5-15); AST (GOT) 18 U/L (15-37); BICARBONATE 21.3 MEQ/L (21.0-32.0); BLOOD UREA NITROGEN 25 MG/DL (7-18); CHLORIDE 109 MEQ/L (98-107); GLOMERULAR FILTRATION RATE 59 ML/MIN (>89); MAGNESIUM 2.1 MG/DL (1.5-2.5); POTASSIUM 4.6 MEQ/L (3.5-5.1); SODIUM (NA) 138 MEQ/L (136-145)
[2016-05-06 17:15] LABS: ALKALINE PHOSPHATASE 60 U/L (45-117); TOTAL BILIRUBIN ADULT 0.6 MG/DL (0.2-1.0)
[2016-05-06 17:18] LABS: CREATINE KINASE 57 U/L (39-308)
[2016-05-06 17:55] LABS: APTT (PATIENT) 26.3 SEC (24.3-30.1); PROTHROMBIN TIME - PATIENT 10.7 SEC (9.8-11.6)
[2016-05-06] MEDS ORDERED: IOHEXOL 350 MG/ML 10 ML VIAL (for RAD DIAG) IV ONE (18:56)
--- NOTE | 2016-05-06 19:30 | RADRPT ---
EXAM DATE/TIME: 05/06/2016 18:51 [place] COMPARISON: No previous studies available for comparison. INDICATIONS : Chest pressure. IV CONTRAST: 70 cc Omnipaque 350 (iohexol) IV RADIATION DOSE: 23.28 CTDIvol (mGy) MEDICAL HISTORY : Cardiovascular disease. Hypertension. Lupus. SURGICAL HISTORY : None. ENCOUNTER: Initial ACUITY: 1 day PAIN SCALE: 3/10 LOCATION: Bilateral chest TECHNIQUE: Volumetric scanning of the chest was performed using a pulmonary embolism protocol MIP images were re constructed. Using automated exposure control and adjustment of the mA and/or kV according to patien t size, radiation dose was kept as low as reasonably achievable to obtain optimal diagnostic quality images. FINDINGS: No filling defects are identified to suggest pulmonary embolic disease. There is abnormal cystic lung disease. There is relative sparing of the costophrenic angles. The cysts are more severe in the uppe r lobe, right greater than left. Differential diagnosis includes Langerhans' cell histiocytosis and l ymphocytic interstitial pneumonitis. This is not the typical appearance of emphysema but is also with in the differential diagnosis. No pleural or significant pericardial effusion. CONCLUSION: 1. Negative for pulmonary embolus. 2. Abnormal cystic disease in the lungs. Prior study not currently available for comparison. Differen tial diagnosis includes LCH, LIP and emphysema. Ariel Stratton MD on May 06, 2016 at 19:21 Board Certified Radiologist. This report was verified electronically.
--- NOTE | 2016-05-06 20:50 | HHI.HP ---
HPI Service [facility]ists Primary Care Physician No Primary Care Physician Admission Diagnosis Chest Pain/Lupus Flair Diagnoses: Travel History International Travel<30 Days: No Contact w/Intl Traveler <30 Da: No Traveled to Known Affected Are: No History of Present Illness This is a 25-year-old male patient of Dr. Juan C Whalen. The patient has a history of lupus, rheumatoid with interstitial lung disease. She came into the emergency department at [facility] with 3 hours complaints of left flank pain: Central chest heaviness and difficulty breathing. He has also complained of nausea, diarrhea and urinary frequency. He apparently stated that he had some blood in stool, however, the bloody stool. Extremities, chronic. He was seen by Dr. Campos and subsequently she was discussed the emergency department and the presence of his mother.No fever, chills or diaphoresis.The chest discomfort is worse with deep inspiration and with palpation. The patient has had a history of pleurisy. . Review of Systems Other 10 systems reviewed and otherwise negative Past Family Social History Past Medical History Hypertension Systemic lupus erythematosus Rheumatoid arthritis Interstitial lung disease Acid reflux Chronic kidney disease MRSA of the left buttock in 2001 Asthma Past Surgical History Left foot reconstruction. Right chest reconstruction. Lung biopsy. Reported Medications Reported Meds & Active Scripts Active Oxycodone-Acetaminophen 10-325 mg Tab 1 Tab PO Q6H PRN Prednisone 10 Mg Tab 10 Mg PO BID Norvasc (Amlodipine Besylate) 5 Mg Tab 5 Mg PO DAILY Coreg (Carvedilol) 12.5 Mg Tab 12.5 Mg PO Q12HR Reported Protonix (Pantoprazole Sodium) 20 Mg Tab 20 Mg PO DAILY [place] (Hydrocodone-Acetaminophen) 10-325 Mg Tab 1 Tab PO Q6H PRN Plaquenil (Hydroxychloroquine Sulfate) 200 Mg Tab 300 Mg PO DAILY Take with food Allergies: Coded Allergies: Dilaudid (Verified Allergy, Severe, RASH, 05/06/16) Penicillin (Verified Allergy, Severe, RASH, 05/06/16) Latex (Verified Allergy, Unknown, 05/06/16) Uncoded Allergies: PLASTIC TAPE (Allergy, Severe, RASH, 11/27/08) Family History Reviewed but noncontributory Social History No smoking, alcohol or illicit drug use Physical Exam Vital Signs Vital Signs Date Time Temp Pulse Resp B/P Pulse Ox O2 Delivery O2 Flow Rate FiO2 05/06/16 19:50 77 20 141/88 97 05/06/16 17:37 18 05/06/16 16:55 96 21 05/06/16 16:36 Room Air 05/06/16 16:36 Room Air 05/06/16 15:19 77 133/92 97 Room Air 135/94 05/06/16 15:11 97.4 76 20 133/92 97 Room Air 05/06/16 12:45 98.2 89 16 122/84 97 Physical Exam GENERAL: This is a well-nourished, well-developed patient, in no apparent distress. SKIN: No rashes, ecchymoses or lesions. Cool and dry. HEAD: Atraumatic. Normocephalic. No temporal or scalp tenderness. EYES: Pupils equal round and reactive. Extraocular motions intact. No scleral icterus. No injection or drainage. ENT: Nose without bleeding, purulent drainage or septal hematoma. Throat without erythema, tonsillar hypertrophy or exudate. Uvula midline. Airway patent. NECK: Trachea midline. No JVD or lymphadenopathy. Supple, nontender, no meningeal signs. CARDIOVASCULAR: Regular rate and rhythm without murmurs, gallops, or rubs. RESPIRATORY: Clear to auscultation. Breath sounds equal bilaterally. No wheezes , rales, or rhonchi. GASTROINTESTINAL: Abdomen soft, non-tender, nondistended. No hepato-splenomegaly , or palpable masses. No guarding. MUSCULOSKELETAL: Extremities without clubbing, cyanosis, or edema. No joint tenderness, effusion, or edema noted. No calf tenderness. Negative Homans sign bilaterally. NEUROLOGICAL: Awake and alert. Cranial nerves II through XII intact. Normal speech. Laboratory Laboratory Tests Test 05/06/16 05/06/16 05/06/16 05/06/16 14:15 14:40 16:30 17:00 Urine Color YELLOW Urine Turbidity CLEAR Urine pH 5.5 Urine Specific [place] 1.012 Urine Protein 100 Urine Glucose (UA) NEG Urine Ketones NEG Urine Occult Blood MOD Urine Nitrite NEG Urine Bilirubin NEG Urine Urobilinogen LESS THAN 2.0 Urine Leukocyte Esterase NEG Urine RBC 15 Urine WBC 2 Microscopic Urinalysis Comment CULT NOT INDICATED White Blood Count 6.7 Red Blood Count 4.84 Hemoglobin 13.9 Hematocrit 41.4 Mean Corpuscular Volume 85.7 Mean Corpuscular Hemoglobin 28.7 Mean Corpuscular Hemoglobin 33.5 Concent Red Cell Distribution Width 14.3 Platelet Count 176 Mean Platelet Volume 7.8 Neutrophils (%) (Auto) 71.3 Lymphocytes (%) (Auto) 17.6 Monocytes (%) (Auto) 5.0 Eosinophils (%) (Auto) 6.0 Basophils (%) (Auto) 0.1 Neutrophils # (Auto) 4.8 Lymphocytes # (Auto) 1.2 Monocytes # (Auto) 0.3 Eosinophils # (Auto) 0.4 Basophils # (Auto) 0.0 CBC Comment DIFF FINAL Differential Comment Sodium Level 138 Potassium Level 4.6 Chloride Level 109 Carbon Dioxide Level 21.3 Anion Gap 8 Blood Urea Nitrogen 25 Creatinine 1.43 Estimat Glomerular Filtration 59 Rate Random Glucose 80 Calcium Level 8.3 Magnesium Level 2.1 Total Bilirubin 0.6 Aspartate Amino Transf 18 (AST/SGOT) Alanine Aminotransferase 35 (ALT/SGPT) Alkaline Phosphatase 60 Total Creatine Kinase 57 Troponin I LESS THAN 0.02 Total Protein 6.8 Albumin 3.2 Prothrombin Time 10.7 Prothromb Time International 1.0 Ratio Activated Partial 26.3 Thromboplast Time Result Diagram: 05/06/16 1440 05/06/16 1630 Imaging Last [address] Angiography 05/06/16 1824 Signed Impressions: Service Date/Time: Friday, May 06, 2016 18:51 - CONCLUSION: 1. Negative for pulmonary embolus. 2. Abnormal cystic disease in the lungs. Prior study not currently available for comparison. Differential diagnosis includes LCH, LIP and emphysema. Ariel Stratton MD Chest X-Ray 05/06/16 0000 Signed Impressions: Service Date/Time: Friday, May 06, 2016 14:36 - CONCLUSION: 1. Chronic fibrotic changes bilaterally unchanged from the prior study. No acute pulmonary disease. 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
[2016-05-06] MEDS ORDERED: SENNOSIDES 8.6 MG TAB PO PRN (21:30)
[2016-05-06] MEDS ORDERED: ACETAMINOPHEN 325 MG TAB PO PRN (21:30)
[2016-05-06] MEDS ORDERED: NALOXONE HCL 0.4 MG/ML AMP IV PRN (21:30)
[2016-05-06] MEDS ORDERED: BISACODYL 10 MG SUPP PR PRN (21:30)
[2016-05-06] MEDS ORDERED: SODIUM CHLORIDE 0.9% FLUSH 5 ML FLUSH FLUSH PRN (21:30)
[2016-05-06] MEDS: SODIUM CHLOR 0.9% 1000 ML INJ 1,000 ML IV SCH (22:00)
[2016-05-06] MEDS: HEPARIN SODIUM - SQ 10,000 UNITS/ML VIAL SQ SCH (22:00)
[2016-05-06] MEDS ORDERED: methylPREDNISolone SOD SUCC 125 MG/2 ML VIAL IV PUSH SCH (22:15)
[2016-05-06] MEDS ORDERED: PILL SPLITTER OTHER PRN (22:30)
[2016-05-06] MEDS ORDERED: HYDROmorphone HCL PF 1 MG/ML VIAL IV PUSH ONE (22:45)
[2016-05-06] MEDS: methylPREDNISolone SOD SUCC 125 MG/2 ML VIAL IV PUSH SCH (22:50)
[2016-05-06] MEDS: RESP: ALBUTEROL 2.5 MG/IPRATROPIUM 0.5 MG NEB (PRN) NEB (23:09)
[2016-05-07] VITALS (9 sets, daily range): BP systolic 113–147; BP diastolic 77–95; PULSE 60–76; RESP 18–20; TEMP 96.2–97.5; O2SAT 95–99
[2016-05-07] MEDS: oxyCODONE/ACETAMINOPHEN 10 MG/325 MG TAB PO PRN ×3 (00:06→20:50)
[2016-05-07 00:37] LABS: BLOOD GAS BASE EXCESS -2.8 mmol/L (-2-2); BLOOD GAS HCO3 21 mmol/L (22-26); BLOOD GAS METHEMOGLOBIN 1.9 % (0-2); BLOOD GAS O2 HGB SATURATION 93 % (90-100); BLOOD GAS OXYGEN CONTENT 19.3 Vol % (12.0-20.0); BLOOD GAS PCO2 31 mmHg (38-42); BLOOD GAS PO2 83 mmHG (61-120); BLOOD GAS TOTAL HGB 14.7 G/DL (12.0-16.0); CRITICAL VALUE NO; DRAW SITE RT RADIAL; FIO2 21 %; NUMBER OF ARTERIAL PUNCTURES 1; OXYGEN DEVICE ROOM AIR; STAT YES; TEMP CORR TO 98.6; ULNAR PULSE PRESENT
[2016-05-07] MEDS: HYDROmorphone HCL PF 1 MG/ML VIAL IV PUSH PRN ×5 (03:33→23:06)
[2016-05-07 04:21] LABS: BICARBONATE 19.8 MEQ/L (21.0-32.0); POTASSIUM 4.9 MEQ/L (3.5-5.1)
[2016-05-07] MEDS: methylPREDNISolone SOD SUCC 125 MG/2 ML VIAL IV PUSH SCH ×4 (06:25→23:07)
[2016-05-07] MEDS: SODIUM CHLOR 0.9% 1000 ML INJ 1,000 ML IV SCH (08:00)
[2016-05-07] MEDS: SODIUM CHLORIDE 0.9% FLUSH 5 ML FLUSH FLUSH SCH ×2 (08:04→20:50)
[2016-05-07] MEDS: CARVEDILOL 12.5 MG TAB PO SCH ×2 (08:28→20:50)
[2016-05-07] MEDS: HYDROXYCHLOROQUINE SULFATE 200 MG TAB PO SCH (08:28)
[2016-05-07] MEDS: PANTOPRAZOLE SOD 20 MG DELAYED RELEASE TAB PO SCH (08:28)
[2016-05-07] MEDS: amLODIPine BESYLATE 5 MG TAB PO SCH (08:28)
[2016-05-07] MEDS: HEPARIN SODIUM - SQ 10,000 UNITS/ML VIAL SQ SCH ×2 (08:29→20:50)
[2016-05-07] MEDS: RESP: ALBUTEROL 2.5 MG/IPRATROPIUM 0.5 MG NEB (PRN) NEB (08:29)
[2016-05-07] MEDS ORDERED: predniSONE 10 MG TAB PO SCH (09:00)
[2016-05-07] MEDS: ONDANSETRON HCL 4 MG/2 ML VIAL IVP PRN ×2 (10:08→17:29)
--- NOTE | 2016-05-07 13:49 | EKG ---
Date Performed: 05/06/2016 Time Performed: 16:08:14 PTAGE: 25 years EKG: Sinus rhythm LEFT ATRIAL ENLARGEMENT ABNORMAL ECG Compared to prior tracing no significant change PREVIOUS TRACING : 04/23/2016 04.10 DOCTOR: Sujatha Hall Interpretating Date/Time 05/07/2016 13:47:21
[2016-05-07] MEDS: SODIUM CHLOR 0.45% 1000 ML INJ 1,000 ML IV SCH ×2 (17:29→23:07)
--- NOTE | 2016-05-07 18:09 | HHI.PR ---
Subjective Remarks Some shortness of breath at rest Chest tightness with work of effort with breathing Mild anxiety No headache Bilateral knee aches, mild edema Objective Objective Results - Vital Signs Date Time Temp Pulse Resp B/P Pulse Ox O2 Delivery O2 Flow Rate FiO2 05/07/16 16:00 97.5 76 20 133/84 95 05/07/16 12:00 96.2 73 20 139/85 96 05/07/16 08:29 99 21 05/07/16 08:00 96.9 65 20 147/87 95 05/07/16 04:03 18 05/07/16 04:00 96.8 60 18 113/77 98 05/07/16 03:15 70 05/07/16 01:41 18 05/07/16 00:07 19 05/07/16 00:00 97.1 72 18 142/95 96 05/06/16 23:05 95 05/06/16 22:51 84 141/87 96 05/06/16 19:50 77 20 141/88 97 I/O 05/06/16 05/06/16 05/06/16 05/07/16 05/07/16 05/07/16 07:00 15:00 23:00 07:00 15:00 23:00 Intake Total 480 ml 840 ml Output Total 300 ml Balance 180 ml 840 ml Intake Oral 480 ml 840 ml Output Urine Total 300 ml # Voids 3 # Bowel Movements 0 Result Diagram: 05/06/16 1440 05/07/16 0333 Medications and IVs Active Medications Acetaminophen (Tylenol) 650 mg Q4H PRN PO; Start 05/06/16 at 21:30 Acetaminophen/ Hydrocodone Bitart ([place] 10-325 Mg) 1 tab Q6H PRN PO; Start at 22:15 Amlodipine Besylate (Norvasc) 5 mg DAILY PO Last administered on 05/07/16 08:28 ; Admin Dose 5 MG; Start 05/07/16 at 09:00 Bisacodyl (Dulcolax Supp) 10 mg DAILY PRN DC; Start 05/06/16 at 21:30 Carvedilol (Coreg) 12.5 mg Q12HR PO Last administered on 05/07/16 08:28; Admin Dose 12.5 MG; Start 05/07/16 at 09:00 Heparin Sodium (Porcine) (Heparin Inj) 5,000 units Q12H SQ Last administered on 05/07/16 08:29; Admin Dose 5,000 UNITS; Start 05/06/16 at 22:00 Hydromorphone HCl (Dilaudid Pf Inj) 1 mg ONCE ONCE IV PUSH Last administered on 05/06/16 22:49; Admin Dose 1 MG; Start 05/06/16 at 22:45; Stop 05/06/16 at 22:46; Status DC Hydromorphone HCl 1 mg 1 mg Q3H PRN IV PUSH Last administered on 05/07/16 17: 30; Admin Dose 1 MG; Start 05/07/16 at 03:30 Hydroxychloroquine Sulfate (Plaquenil) 300 mg DAILY PO Last administered on 05/07 08:28; Admin Dose 300 MG; Start 05/07/16 at 09:00 Influenza Virus Vaccine (Flu (Quadrivalent) Vaccine Inj) 0.5 ml ONCE ONCE IM; Start 05/08/16 at 10:00; Stop 05/08/16 at 10:01 Iohexol 70 ml 70 ml STK-MED ONCE IV Last administered on 05/06/16 18:56; Admin Dose 70 ML; Start 05/06/16 at 18:56; Stop 05/06/16 at 18:57; Status DC IV Flush (NS Flush) 2 ml BID FLUSH; Start 05/07/16 at 09:00 IV Flush (NS Flush) 2 ml UNSCH PRN FLUSH; Start 05/06/16 at 21:30 Methylprednisolone Sodium Succinate (SoluMEDROL INJ) 80 mg Q6H IV PUSH Last administered on 05/07/16 17:28; Admin Dose 80 MG; Start 05/06/16 at 23:00 Methylprednisolone Sodium Succinate (SoluMEDROL INJ) 80 mg Q6HR IV PUSH; Start 05/06/16 at 22:15; Status UNV Miscellaneous (Pill Splitter) 1 ea UNSCH PRN OTHER; Start 05/06/16 at 22:30 Naloxone HCl (Narcan Inj) 0.4 mg UNSCH PRN IV; Start 05/06/16 at 21:30 Ondansetron HCl (Zofran Inj) 4 mg Q6H PRN IVP Last administered on 05/07/16 17 :29; Admin Dose 4 MG; Start 05/06/16 at 21:30 Oxycodone/ Acetaminophen (Percocet 10-325 Mg) 1 tab Q6H PRN PO Last administered on 05/07/16 06:25; Admin Dose 1 TAB; Start 05/06/16 at 22:15 Pantoprazole Sodium (Protonix) 20 mg DAILY PO Last administered on 05/07/16 08: 28; Admin Dose 20 MG; Start 05/07/16 at 09:00 Pneumococcal Polyvalent Vaccine (Pneumovax-23 Inj) 25 mcg ONCE ONCE IM; Start at 10:00; Stop 05/08/16 at 10:01 Prednisone (Deltasone) 10 mg BID PO; Start 05/07/16 at 09:00; Stop 05/07/16 at 09:00; Status DC Sennosides (Senokot) 17.2 mg Q12H PRN PO; Start 05/06/16 at 21:30 Sodium Chloride (1/2 NS 1000 ml Inj) 1,000 ml @ 150 mls/hr Q6H40M IV Last administered on 05/07/16 17:29; Admin Dose 150 MLS/HR; Start 05/07/16 at 17:15 Sodium Chloride (NS 1000 ml Inj) 1,000 ml @ 100 mls/hr Q10H IV Last administered on 05/06/16 22:00; Admin Dose 100 MLS/HR; Start 05/06/16 at 22:00 ; Stop 05/07/16 at 17:18; Status DC ROS General: Fatigue, Weakness, Other (10 point ROS done. Positives noted all other systems negative or unremarkable) Cardiac: Chest Pain (related to his breathing. Chest sore to touch. Tightness ) Pulmonary: SOB Neuro/MS: Other (bilateral knee pain with mild edema.) Physical Exam Physical Exam PHYSICAL EXAMINATION GENERAL: This is a well-developed, well-nourished male who appears to be in no acute distress. He is alert and awake, answers questions appropriately. HEAD: Normocephalic without any lesion or mass noted. Facial features appear symmetric. OROPHARYNGEAL: Oropharynx without erythema or edema. NECK: Supple. No nuchal rigidity or lymphadenopathy. Trachea midline without deviation. CARDIAC: Regular rhythm, regular rate, S1 and S2 are heard. Murmur []; no gallops or rubs. LUNGS: Clear to auscultation bilaterally. No wheeze, rhonchi or rale. No use of accessory muscles on inspiration or expiration. Low air volumes ABDOMEN: Soft, nontender, no organomegaly or masses. Bowel sounds are heard in all four quadrants. No rebound. No guarding. EXTREMITIES: Mild bilateral knee edema. Pulses equal bilateral. cyanosis. NEUROLOGICAL: Patient mood and affect appropriate, mild anxiety. No focal deficit SKIN:Warm and moist, dry Objective Remarks I didn't sleep well last night. I thought about my brother a lot A/P Assessment and Plan Assessment and Plan Assessment Atypical chest pain Rule out acute coronary event Possible pleurisy Chronic kidney disease Interstitial lung disease Management Admit to telemetry Serial CKs and troponins, negative Consult superintendent horticulture pending Echocardiogram done Continue home medications Supplemental oxygen O2 at 2 L Check blood gas Intravenous steroids Discussed with patient and answered any questions Very minimal amount of swelling noted in patient's knees bilateral. He is concerned that the IV steroids may be causing this. Urged patient to move all extremities and ambulate, and sit in chair. DVT prophylaxis Discussed With: patient, Dr. Segura. Patient seen on his behalf Discussed With: Nurse, Family Kaylene Leung May 07, 2016 18:09
--- NOTE | 2016-05-07 20:26 | MB ---
cc: DIANE ROJAS DATE OF CONSULTATION 05/07/[address] Segura. REASON FOR CONSULTATION Interstitial lung bases HISTORY OF PRESENT ILLNESS Mr. Swain is a 25-year-old male with history of interstitial lung disease diagnosed when he was [age] years old. He had a lung biopsy done at [facility]. The patient is getting most of his care over there. He has history of rheumatoid arthritis, IgA nephropathy with interstitial lung disease and SLE. The patient came to the hospital with heaviness in his chest, difficulty breathing, diarrhea. He does have intermittent hematuria which is old. The patient was evaluated in the hospital. He had a CTA of the chest. It does not show any pulmonary embolism. It shows that he has extensive cystic lung disease, more on the right lung than the left, and he has ground-glass infiltrate on the left side. His CBC showed WBC count 6.7, hemoglobin 13.9, hematocrit 41.4, MCV 85, platelet count 176, sodium 137, potassium 4,8, chloride 108, CO2 20, BUN 30, creatinine 1.74, blood gas on room air - pH 7.44, pCO2 31, PO2 83, bicarb 21. PAST MEDICAL HISTORY 1. History of rheumatoid arthritis 2. SLE 3. IgA nephropathy. 4. Interstitial lung disease with honeycombing 5. History of MRSA infection in the past 6. Hypertension 7. History of clubbed foot. He had surgery done twice on his foot. 8. He has a fusion of the joint in the left hand 9. History of chest reconstruction MEDICATIONS He is currently taking 1. Amlodipine 5 mg a day 2. Coreg 12.5 mg twice a day 3. Plaquenil 300 mg a day 4. Protonix 20 mg a day 5. Dilaudid for pain 6. Solu-Medrol 80 mg q.6 h. 7. Oxycodone p.r.n. 8. Heparin 5000 q.12 h 9. Aerosol treatment with Albuterol and Atrovent. ALLERGIES DILAUDID LATEX PLASTIC TAPE Allergic to Dilaudid latex plastic tape PENICILLIN SOCIAL HISTORY He is single, lives with his mother. No history of smoking. He does smoke marijuana. FAMILY HISTORY He has four brothers, one at age 20 with a stroke. REVIEW OF SYSTEMS He is normally up, around and active, able to walk one mile. He does not work because of his disability. PHYSICAL EXAMINATION GENERAL: Well-built, well-nourished male not in acute distress. VITAL SIGNS: Blood pressure 133/84, heart rate 76, saturation 20, Temperature 97.5. HEENT: Pupils are equal and reactive to light. Oral mucosa and nasal mucosa normal. NECK: Supple. JVP not raised. CHEST: Equal bilateral. He has inspiratory rales. CARDIAC: S1, S2 normal. ABDOMEN: Soft, nondistended. Bowel sounds are present. EXTREMITIES: He has a deformity from rheumatoid arthritis and previous surgery in the left foot and left hand. 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 No focal deficit. IMPRESSION 1. Interstitial lung disease secondary to his connective tissue disorder. He has cystic changes in the lungs, more so on the right lung and some ground-glass infiltrate in the left lung. 2. Rheumatoid arthritis 3. Lupus. 4. IVC nephropathy PLAN We will check his pulmonary function study. No need for supplemental oxygen at this time. Continues steroid and aerosol treatment. The patient gets most of the pulmonary and rheumatologic care at [facility] and where he will go for followup. Further treatment will depend on the course in the hospital. Thank you, Dr. Segura, for this consultation. MD DOMINIC Vázquez/ /7:17 PM /8:08 PM NOEL
[2016-05-08] VITALS (10 sets, daily range): BP systolic 126–155; BP diastolic 78–97; PULSE 66–82; RESP 18–20; TEMP 96.5–97.3; O2SAT 96–99
[2016-05-08] MEDS: HYDROmorphone HCL PF 1 MG/ML VIAL IV PUSH PRN ×5 (01:56→23:30)
[2016-05-08] MEDS: oxyCODONE/ACETAMINOPHEN 10 MG/325 MG TAB PO PRN ×2 (05:19→18:17)
[2016-05-08] MEDS: methylPREDNISolone SOD SUCC 125 MG/2 ML VIAL IV PUSH SCH ×4 (05:19→22:28)
[2016-05-08] MEDS: SODIUM CHLOR 0.45% 1000 ML INJ 1,000 ML IV SCH ×3 (06:31→20:27)
[2016-05-08] MEDS: SODIUM CHLORIDE 0.9% FLUSH 5 ML FLUSH FLUSH SCH ×2 (09:00→20:26)
[2016-05-08] MEDS: ONDANSETRON HCL 4 MG/2 ML VIAL IVP PRN (09:07)
[2016-05-08] MEDS: amLODIPine BESYLATE 5 MG TAB PO SCH (09:08)
[2016-05-08] MEDS: PANTOPRAZOLE SOD 20 MG DELAYED RELEASE TAB PO SCH (09:08)
[2016-05-08] MEDS: HYDROXYCHLOROQUINE SULFATE 200 MG TAB PO SCH (09:08)
[2016-05-08] MEDS: CARVEDILOL 12.5 MG TAB PO SCH ×2 (09:08→21:27)
[2016-05-08] MEDS ORDERED: PNEUMOCOCCAL POLYVALENT INJ 25 MCG/0.5 ML SYR IM ONE (10:00)
[2016-05-08] MEDS ORDERED: INFLUENZA VIRUS VACCINE (QUADRIVALENT) 0.5 ML SYR IM ONE (10:00)
[2016-05-08] MEDS: HEPARIN SODIUM - SQ 10,000 UNITS/ML VIAL SQ SCH ×2 (11:39→21:27)
[2016-05-08] MEDS: ACETAMINOPHEN/HYDROcodone 325 MG/10 MG TAB PO PRN (11:55)
--- NOTE | 2016-05-08 13:31 | HHI.PR ---
Subjective Remarks Some shortness of breath at rest Chest tightness with work of effort with breathing Mild anxiety No headache Bilateral knee aches, mild edema Objective Objective Results - Vital Signs Date Time Temp Pulse Resp B/P Pulse Ox O2 Delivery O2 Flow Rate FiO2 05/08/16 11:59 96.5 66 18 147/97 97 05/08/16 07:58 96.6 67 20 155/89 96 05/08/16 04:17 97.0 68 18 126/80 97 05/08/16 00:06 96.7 75 18 131/88 97 05/07/16 20:27 96.7 76 18 129/84 96 05/07/16 20:00 74 05/07/16 16:00 97.5 76 20 133/84 95 I/O 05/07/16 05/07/16 05/07/16 05/08/16 05/08/16 05/08/16 07:00 15:00 23:00 07:00 15:00 23:00 Intake Total 480 ml 840 ml 480 ml 900 ml Output Total 300 ml 400 ml 400 ml Balance 180 ml 840 ml 80 ml 500 ml Intake Oral 480 ml 840 ml 480 ml IV Total 900 ml Output Urine Total 300 ml 400 ml 400 ml # Voids 3 # Bowel Movements 0 Result Diagram: 05/06/16 1440 05/07/16 0333 Physical Exam Physical Exam Physical Exam PHYSICAL EXAMINATION GENERAL: This is a well-developed, well-nourished male who appears to be in no acute distress. He is alert and awake, answers questions appropriately. Anxious HEAD: Normocephalic without any lesion or mass noted. Facial features appear symmetric. OROPHARYNGEAL: Oropharynx without erythema or edema. NECK: Supple. No nuchal rigidity or lymphadenopathy. Trachea midline without deviation. CARDIAC: Regular rhythm, regular rate, S1 and S2 are heard. Murmur []; no gallops or rubs. LUNGS: Clear to auscultation bilaterally. No wheeze, rhonchi or rale. No use of accessory muscles on inspiration or expiration. Low air volumes, no cough with deep breathing ABDOMEN: Soft, nontender, no organomegaly or masses. Bowel sounds are heard in all four quadrants. No rebound. No guarding. EXTREMITIES: No knee edema noted today Pulses equal bilateral. No cyanosis. NEUROLOGICAL: Patient mood and affect appropriate, mild anxiety. No focal deficit SKIN:Warm and moist, dry Objective Remarks I don't sleep well at night. I get anxious and nervous A/P Assessment and Plan Atypical chest pain Rule out acute coronary event Possible pleurisy Chronic kidney disease Interstitial lung disease Constipation Insomnia Anxiety disorder Management Admit to telemetry Serial CKs and troponins, negative Consult welding process engineer. Appreciate expert opinion. We'll continue aerosols and duo nebs 4 hour while awake. Only use oxygen if O2 sat drops below 90. Echocardiogram done. Cardiology consult pending. Evaluation of chest pain. Continue home medications Supplemental oxygen O2 at 2 L prn only Intravenous steroids Discussed with patient and answered any questions. Supportive care Very minimal amount of swelling noted in patient's knees bilateral on 05-07, no edema or swelling on 05-08 Urged patient to move all extremities and ambulate, and sit in chair. Becomes more anxious and nervous at night. He is used to taking sleep and anxiety meds. We'll discuss his needs with Dr. Segura. Supportive care. Bowel regimen. No BM 2 days. MiraLAX ordered daily and will monitor further needs. DVT prophylaxis Discussed With: patient, Dr. Segura. Patient seen on his behalf Discussed With: Nurse, Family (patient), Other (Dr. Segura, patient seen on his behalf) Kaylene Leung May 08, 2016 13:31 Kaylene Leung May 08, 2016 13:31
[2016-05-08 14:01] LABS: AUTOMATED NEUTROPHIL # 8.9 TH/MM3 (1.8-7.7); BASOPHIL % 0.2 % (0.0-2.0); HEMATOCRIT 39.2 % (39.0-51.0); HEMO FLAGS DIFF FINAL; LYMPH % 5.1 % (9.0-44.0); LYMPHOCYTE # 0.5 TH/MM3 (1.0-4.8); MEAN CORPUSCULAR HEMOGLOBIN 29.5 PG (27.0-34.0); MEAN CORPUSCULAR HGB CONC 34.3 % (32.0-36.0); MONO % 2.5 % (0.0-8.0); NEUT % 92.2 % (16.0-70.0); PLATELET COUNT 177 TH/MM3 (150-450); RED BLOOD COUNT 4.56 MIL/MM3 (4.50-5.90); RED CELL DISTRIBUTION WIDTH 14.8 % (11.6-17.2); WHITE BLOOD COUNT 9.6 TH/MM3 (4.0-11.0)
--- NOTE | 2016-05-08 14:06 | PD.CONS ---
[facility] Service Nephrology Consult Requested By Dr. Segura Reason for Consult Acute and chronic kidney disease Primary Care Physician Juan C Whalen M.D. History of Present Illness Patient is a 25-year-old male with history of the chronic kidney disease due to lupus nephritis, SLE chronic interstitial lung disease who is admitted to the he received CT angiogram with contrast and his creatinine is not increased from 1.4-1.7. Patient was advised to take CellCept however he is not taking it he said the previously used to be up to 3 g a day and it cause him fluid retention , she continues to the to have increasing shortness of breath at times. Review of Systems Constitutional: COMPLAINS OF: Fatigue Respiratory: COMPLAINS OF: Shortness of breath Cardiovascular: COMPLAINS OF: Dyspnea on Exertion Past Family Social History Allergies: Coded Allergies: Dilaudid (Verified Allergy, Severe, RASH, 05/06/16) Penicillin (Verified Allergy, Severe, RASH, 05/06/16) Latex (Verified Allergy, Unknown, 05/06/16) Uncoded Allergies: PLASTIC TAPE (Allergy, Severe, RASH, 11/27/08) Past Medical History Chronic kidney disease SLE nephritis Rheumatoid arthritis MRSA infection Hypertension Chronic interstitial lung disease He has extensive workup in [facility] and 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 to this area Past Surgical History Lung biopsy Kidney biopsy Club foot surgery Left hand surgery He has previous chest thoracostomy surgery Reported Medications Reported Meds & Active Scripts Active Oxycodone-Acetaminophen 10-325 mg Tab 1 Tab PO Q6H PRN Prednisone 10 Mg Tab 10 Mg PO BID Norvasc (Amlodipine Besylate) 5 Mg Tab 5 Mg PO DAILY Coreg (Carvedilol) 12.5 Mg Tab 12.5 Mg PO Q12HR Reported Protonix (Pantoprazole Sodium) 20 Mg Tab 20 Mg PO DAILY [place] (Hydrocodone-Acetaminophen) 10-325 Mg Tab 1 Tab PO Q6H PRN Plaquenil (Hydroxychloroquine Sulfate) 200 Mg Tab 300 Mg PO DAILY Take with food Active Ordered Medications Current Medications Medications (Trade) Dose Ordered Sig/Matt Route Start Time Stop Time Status Last Admin (NS Flush) 2 ml UNSCH PRN FLUSH 05/06/16 21:30 (NS Flush) 2 ml BID FLUSH 05/07/16 09:00 05/07/16 20:50 (Tylenol) 650 mg Q4H PRN PO 1/30/17 21:30 (Zofran Inj) 4 mg Q6H PRN IVP 05/06/16 21:30 05/08/16 09:07 (Dulcolax Supp) 10 mg DAILY PRN ND 05/06/16 21:30 (Senokot) 17.2 mg Q12H PRN PO 05/06/16 21:30 (Heparin Inj) 5,000 units Q12H SQ 05/06/16 22:00 05/08/16 11:39 (Narcan Inj) 0.4 mg UNSCH PRN IV 05/06/16 21:30 (SoluMEDROL INJ) 80 mg Q6H IV PUSH 05/06/16 23:00 05/08/16 11:39 (Norvasc) 5 mg DAILY PO 05/07/16 09:00 05/08/16 09:08 (Coreg) 12.5 mg Q12HR PO 05/07/16 09:00 05/08/16 09:08 ([place] 10-325 Mg) 1 tab Q6H PRN PO 05/06/16 22:15 05/08/16 11:55 (Plaquenil) 300 mg DAILY PO 05/07/16 09:00 05/08/16 09:08 (Percocet 10-325 Mg) 1 tab Q6H PRN PO 05/06/16 22:15 05/08/16 05:19 (Protonix) 20 mg DAILY PO 05/07/16 09:00 05/08/16 09:08 (Pill Splitter) 1 ea UNSCH PRN OTHER 05/06/16 22:30 Hydromorphone HCl 1 mg 1 mg Q3H PRN IV PUSH 05/07/16 03:30 05/08/16 09:07 (04/08 NS 1000 ml Inj) 1,000 ml @ 150 mls/hr Q6H40M IV 05/07/16 17:15 05/08/16 11:40 (Miralax) 17 gm DAILY PO 05/08/16 13:30 UNV Family History Noncontributory Social History Denies smoking and drinks only socially Physical Exam Vital Signs Vital Signs Date Time Temp Pulse Resp B/P Pulse Ox O2 Delivery O2 Flow Rate FiO2 05/08/16 11:59 96.5 66 18 147/97 97 05/08/16 07:58 96.6 67 20 155/89 96 05/08/16 04:17 97.0 68 18 126/80 97 05/08/16 00:06 96.7 75 18 131/88 97 05/07/16 20:27 96.7 76 18 129/84 96 05/07/16 20:00 74 05/07/16 16:00 97.5 76 20 133/84 95 Physical Exam GENERAL: Well-nourished, well-developed patient. SKIN: Warm and dry. HEAD: Normocephalic. EYES: No scleral icterus. No injection or drainage. NECK: Supple, trachea midline. No JVD or lymphadenopathy. CARDIOVASCULAR: Regular rate and rhythm without murmurs, gallops, or rubs. RESPIRATORY: Breath sounds diminished at the bases GASTROINTESTINAL: Abdomen soft, non-tender, nondistended. EXTREMITIES: No cyanosis, or edema. NEUROLOGICAL: Awake, alert, and oriented x 3. Non-focal. Result Diagram: 05/06/16 1440 05/07/16 [address] Angiography 05/06/16 1824 Signed Impressions: Service Date/Time: Friday, May 06, 2016 18:51 - CONCLUSION: 1. Negative for pulmonary embolus. 2. Abnormal cystic disease in the lungs. Prior study not currently available for comparison. Differential diagnosis includes LCH, LIP and emphysema. Ariel Stratton MD Chest X-Ray 05/06/16 0000 Signed Impressions: Service Date/Time: Friday, May 06, 2016 14:36 - CONCLUSION: 1. Chronic fibrotic changes bilaterally unchanged from the prior study. No acute pulmonary disease. Alok Palma MD Assessment and Plan Problem List: (1) Acute kidney injury Plan: Patient has received contrast and his creatinine is elevated we continue to monitor for improvement Avoid nephrotoxins Avoid giving him studies using intravenous contrast (2) CKD (chronic kidney disease), stage III Plan: This is due to lupus nephritis he was advised to restart the CellCept but he did not follow through (3) RA (rheumatoid arthritis) Plan: Continue to monitor (4) HTN (hypertension) Plan: Monitor blood pressure (5) Hx of lupus nephritis Plan: He needs to be started restarted on CellCept Kate Deutsch MD May 08, 2016 14:06
[2016-05-08 14:21] LABS: BICARBONATE 20.6 MEQ/L (21.0-32.0); MAGNESIUM 2.3 MG/DL (1.5-2.5); POTASSIUM 4.6 MEQ/L (3.5-5.1)
[2016-05-08] MEDS: POLYETHYLENE GLYCOL 17 GM PKG PO SCH (15:53)
[2016-05-08] MEDS: RESP: ALBUTEROL 2.5 MG/IPRATROPIUM 0.5 MG NEB (SCH) NEB ×2 (16:49→19:47)
[2016-05-08] MEDS: MYCOPHENOLATE MOFETIL 500 MG TAB PO SCH (18:17)
--- NOTE | 2016-05-08 19:57 | MB ---
cc: HELENA BEE DATE OF CONSULTATION: 05/08/2016. HISTORY OF PRESENT ILLNESS: Mr. Swain is a 25-year-old white male with history of lupus arthritis and interstitial lung disease. He presented with left flank pain. He also had sharp left-sided chest discomfort with deep inspiration and shortness of breath. He has had nausea, diarrhea and urinary frequency. He has a previous history of pleurisy. He was supposed to be started on Cellcept but the patient had concern because he developed severe generalized edema the last time it was used and his physician in [place] discontinued the treatment. PAST MEDICAL HISTORY: 1. Hypertension. 2. Systemic lupus erythematosus. 3. Rheumatoid arthritis. 4. Interstitial lung disease. 5. Gastroesophageal reflux disease (GERD). 6. Chronic kidney disease. 7. Previous MRSA infection. 8. History of asthma. 9. Left foot reconstruction. 10. Right chest surgery. 11. Lung biopsy. MEDICATIONS: His medications include: 1. Plaquenil. 2. [place]. 3. Protonix. 4. Coreg. 5. Norvasc. 6. Prednisone 7. Oxycodone. 8. Acetaminophen. ALLERGIES: 1. PENICILLIN. 2. LATEX. 3. TAPE. SOCIAL HISTORY: The patient does not smoke. He drinks alcohol socially and infrequently. He is accompanied by his family. FAMILY HISTORY: His family history is negative for coronary artery disease. REVIEW OF SYSTEMS: The review of systems is otherwise negative. PHYSICAL EXAMINATION: VITAL SIGNS: Blood pressure 120/85, pulse 79 and regular. HEAD, EYES, EARS, NOSE, THROAT: Negative. NECK: 2+ carotid upstrokes, no bruits. LUNGS: With a few crackles. HEART: Regular with no murmurs, rubs or gallops. CHEST: Chest pain partially reproducible with left anterior lower chest palpation. ABDOMEN: Abdomen soft. No bruits. EXTREMITIES: Without edema. There are deformities of his joints. There is mild lower extremity edema, especially at the knees. 2+ distal pulses. NEUROLOGIC: Grossly nonfocal. EKGS: EKG was reviewed and showed normal sinus rhythm with normal axis and interval, left atrial abnormality. LABS: Hemoglobin 13.4. Potassium 4.6, creatinine 1.54. Troponin negative x3. AST and ALT normal. DIAGNOSIS: 1. Atypical chest pain. 2. Possible pleurisy. 3. Chronic kidney disease. 4. Interstitial lung disease. 5. Systemic lupus erythematosus. 6. Gastroesophageal reflux disease (GERD). DISPOSITION: Mr. Swain will be monitored on telemetry. I will review his echocardiogram which was done today. He has been ruled out for myocardial infarction by enzymes. His chest pain is atypical and acute coronary syndrome is certainly unlikely. I will follow him for cardiology during his hospitalization. MD DAVID Watikns/CARLOZ /7:35 PM /7:45 PM NOEL
--- NOTE | 2016-05-08 20:24 | HHI.PR ---
Subjective Remarks 25 YOWM with PF since age 7, had lung bx mild tightness in chest Congestion, not able to expactorate No fever Objective Vital Signs Vital Signs Date Time Temp Pulse Resp B/P Pulse Ox O2 Delivery O2 Flow Rate FiO2 05/08/16 16:49 99 21 05/08/16 16:30 96.6 79 18 128/85 96 05/08/16 14:02 98 05/08/16 11:59 96.5 66 18 147/97 97 05/08/16 10:00 72 05/08/16 07:58 96.6 67 20 155/89 96 05/08/16 04:17 97.0 68 18 126/80 97 05/08/16 00:06 96.7 75 18 131/88 97 05/07/16 20:27 96.7 76 18 129/84 96 I/O 05/07/16 05/07/16 05/07/16 05/08/16 05/08/16 05/08/16 07:00 15:00 23:00 07:00 15:00 23:00 Intake Total 480 ml 840 ml 480 ml 900 ml Output Total 300 ml 400 ml 400 ml Balance 180 ml 840 ml 80 ml 500 ml Intake Oral 480 ml 840 ml 480 ml IV Total 900 ml Output Urine Total 300 ml 400 ml 400 ml # Voids 3 4 # Bowel Movements 0 0 Result Diagram: 05/08/16 1332 05/08/16 1332 Objective Remarks GENERAL: WBWN WM, NAD SKIN: Warm and dry. HEAD: Normocephalic. EYES: No scleral icterus. No injection or drainage. NECK: Supple, trachea midline. No JVD or lymphadenopathy. CARDIOVASCULAR: Regular rate and rhythm without murmurs, gallops, or rubs. RESPIRATORY: Breath sounds equal bilaterally. No accessory muscle use. Insp rales GASTROINTESTINAL: Abdomen soft, non-tender, nondistended. MUSCULOSKELETAL: No cyanosis, or edema. BACK: Nontender without obvious deformity. No CVA tenderness. A/P Assessment and Plan Pulm Fibrosis/ILD RA SLE IgA nephropathy Club foot PLAN: IV Solumedrol PFT Aerosol nebs Use Acapella Cardiac and renal connors underway. Mario Torrez MD May 08, 2016 20:23
--- NOTE | 2016-05-08 21:04 | EC ---
Study Study Date:05/08/2016 STUDY CONCLUSIONS SUMMARY - Left ventricle: The cavity size was normal. Wall thickness was normal. Systolic function was normal. The estimated ejection fraction was 60%. Wall motion was normal; there were no regional wall motion abnormalities. - Mitral valve: Mild regurgitation. If LV function is below 40, please consider prescribing an ACEI or ARB or document rationale for non-use. PROCEDURE DATA STUDY STATUS: Elective. Procedure: Transthoracic echocardiography. Image quality was good. Scanning was performed from the parasternal, apical, and subcostal acoustic windows. Study completion: The patient tolerated the procedure well. Transthoracic echocardiography. M-mode, complete 2D, complete spectral Doppler, and color Doppler. Height: Height: 65in. Weight: Weight: 145.7lb. Body mass index: BMI: 24.3kg/m^2. Body surface area: BSA: 1.73m^2. Patient status: Inpatient. CARDIAC ANATOMY LEFT VENTRICLE: The cavity size was normal. Wall thickness was normal. Systolic function was normal. The estimated ejection fraction was 60%. Wall motion was normal; there were no regional wall motion abnormalities. AORTIC VALVE: Trileaflet; normal thickness leaflets. Doppler: Transvalvular velocity was within the normal range. There was no stenosis. No regurgitation. Valve area: 2.55cm^2 (Vmax). Indexed valve area: 1.47cm^2/m^2 (Vmax). AORTA: Aortic root: The aortic root was normal in size. MITRAL VALVE: Structurally normal valve. Doppler: Transvalvular velocity was within the normal range. There was no evidence for stenosis. Mild regurgitation. LEFT ATRIUM: The atrium was normal in size. RIGHT VENTRICLE: The cavity size was normal. Wall thickness was normal. PULMONIC VALVE: Doppler: Transvalvular velocity was within the normal range. There was no evidence for stenosis. No regurgitation. TRICUSPID VALVE: Structurally normal valve. Doppler: Transvalvular velocity was within the normal range. No regurgitation. PULMONARY ARTERY: The main pulmonary artery was normal-sized. Systolic pressure was within the normal range. RIGHT ATRIUM: The atrium was normal in size. PERICARDIUM: There was no pericardial effusion. SYSTEMIC VEINS: Inferior vena cava: The vessel was normal in size. Patient weight: 145.7lb _Ejection fraction:_ 65-75% _Fractional shortening:_ 32% up to 5Kg 5-11.5Kg 11.6-22.9Kg 23-45Kg 45-57Kg Aortic Root 7-13 <17 13-22 17-27 17-27 LA diam 6-13 <23 24-38 33-47 37-40 RVID 10-17 7-15 7-15 7-18 8-17 LVIDd 12-22 <32 24-38 33-47 37-40 LVPW 2-4 3-6 5-7 6-8 7-8 IVS 2-4 3-6 5-7 6-8 7-8 BASIC MEASUREMENTS ADULT NORMAL Left ventricle LV internal dimension, ED, chordal *52.4 mm 43-52 level, PLAX LV internal dimension, ES, chordal *39.4 mm 23-38 level, PLAX Fractional shortening, chordal level, *25 % >29 PLAX LV posterior wall thickness, ED 7.2 mm IVS/LVPW ratio, ED 1.19 <1.3 Ventricular septum Septal thickness, ED 8.58 mm Aortic valve Leaflet separation 22 mm 15-26 BASIC MEASUREMENTS ADULT NORMAL Aortic valve Leaflet separation 22 mm 15-26 Aorta Root diameter, ED 31 mm 20-37 Left atrium Anterior-posterior dimension, ES 37 mm 19-40 Anterior-posterior dimension index, ES 2.14 cm/m^2 <2.2 LA/aortic root ratio 1.19 DOPPLER MEASUREMENTS ADULT NORMAL Aortic valve Peak velocity, S 134 cm/s Valve area, Vmax 2.55 cm^2 Valve area index, Vmax 1.47 cm^2/m^2 Mitral valve Peak E-wave velocity 58.7 cm/s Peak A-wave velocity 46.9 cm/s Deceleration time 158 ms 150-230 Peak E/A ratio 1.3 Maximal regurgitant velocity 384 cm/s Pulmonic valve Peak velocity, S 119 cm/s LEGEND: Mean values are shown as u=mean value. Asterisk (*) hernandez values outside specified normal range. Prepared and signed by aDmir Renae [id number]
[2016-05-08] MEDS: RESP: ALBUTEROL 2.5 MG/IPRATROPIUM 0.5 MG NEB (PRN) NEB (23:49)
[2016-05-09] VITALS (10 sets, daily range): BP systolic 123–151; BP diastolic 75–93; PULSE 65–81; RESP 18–20; TEMP 95.7–97.6; O2SAT 95–100
[2016-05-09] MEDS: oxyCODONE/ACETAMINOPHEN 10 MG/325 MG TAB PO PRN ×3 (02:45→16:20)
[2016-05-09] MEDS: SODIUM CHLOR 0.45% 1000 ML INJ 1,000 ML IV SCH ×3 (02:45→17:53)
[2016-05-09] MEDS: HYDROmorphone HCL PF 1 MG/ML VIAL IV PUSH PRN ×4 (04:52→21:31)
[2016-05-09] MEDS: methylPREDNISolone SOD SUCC 125 MG/2 ML VIAL IV PUSH SCH ×2 (04:52→10:07)
[2016-05-09] MEDS: ONDANSETRON HCL 4 MG/2 ML VIAL IVP PRN ×2 (04:53→12:40)
[2016-05-09] MEDS: MYCOPHENOLATE MOFETIL 500 MG TAB PO SCH (05:19)
[2016-05-09] MEDS: RESP: ALBUTEROL 2.5 MG/IPRATROPIUM 0.5 MG NEB (PRN) NEB (05:28)
[2016-05-09] MEDS: POLYETHYLENE GLYCOL 17 GM PKG PO SCH (08:37)
[2016-05-09] MEDS: HYDROXYCHLOROQUINE SULFATE 200 MG TAB PO SCH (08:38)
[2016-05-09] MEDS: PANTOPRAZOLE SOD 20 MG DELAYED RELEASE TAB PO SCH (08:38)
[2016-05-09] MEDS: SODIUM CHLORIDE 0.9% FLUSH 5 ML FLUSH FLUSH SCH ×2 (08:39→21:00)
[2016-05-09] MEDS: amLODIPine BESYLATE 5 MG TAB PO SCH (08:39)
[2016-05-09] MEDS: CARVEDILOL 12.5 MG TAB PO SCH ×2 (08:39→21:30)
[2016-05-09] MEDS: RESP: ALBUTEROL 2.5 MG/IPRATROPIUM 0.5 MG NEB (SCH) NEB ×4 (10:07→21:52)
[2016-05-09] MEDS: HEPARIN SODIUM - SQ 10,000 UNITS/ML VIAL SQ SCH ×2 (10:09→21:30)
--- NOTE | 2016-05-09 12:13 | HHI.PR ---
Subjective Remarks left sided chest pain with coughing duonebs are helping not able to bring up secretions, has been coughing voiding okay no fever asking about PFTs and whether cardiology and nephrology has discussed Cellcept dosing Objective Objective Results - Vital Signs Date Time Temp Pulse Resp B/P Pulse Ox O2 Delivery O2 Flow Rate FiO2 05/09/16 10:08 97 21 05/09/16 08:34 97.5 65 20 135/84 97 05/09/16 04:00 96.3 72 18 147/93 97 05/09/16 00:00 97.1 68 18 128/77 98 05/08/16 22:14 82 05/08/16 20:00 97.3 74 18 127/78 96 05/08/16 16:49 99 21 05/08/16 16:30 96.6 79 18 128/85 96 05/08/16 14:02 98 I/O 05/08/16 05/08/16 05/08/16 05/09/16 05/09/16 05/09/16 07:00 15:00 23:00 07:00 15:00 23:00 Intake Total 900 ml 650 ml 2160 ml Output Total 400 ml 900 ml Balance 500 ml 650 ml 1260 ml Intake Oral 650 ml 360 ml IV Total 900 ml 1800 ml Output Urine Total 400 ml 900 ml # Voids 4 4 # Bowel Movements 0 Result Diagram: 05/08/16 1332 05/08/16 1332 Imaging Last [address] Angiography 05/06/16 1824 Signed Impressions: Service Date/Time: Friday, May 06, 2016 18:51 - CONCLUSION: 1. Negative for pulmonary embolus. 2. Abnormal cystic disease in the lungs. Prior study not currently available for comparison. Differential diagnosis includes LCH, LIP and emphysema. Ariel Stratton MD Chest X-Ray 05/06/16 0000 Signed Impressions: Service Date/Time: Friday, May 06, 2016 14:36 - CONCLUSION: 1. Chronic fibrotic changes bilaterally unchanged from the prior study. No acute pulmonary disease. Alok Palma MD Other Results Laboratory Tests Test 05/08/16 13:32 White Blood Count 9.6 Red Blood Count 4.56 Hemoglobin 13.4 Hematocrit 39.2 Mean Corpuscular Volume 86.0 Mean Corpuscular Hemoglobin 29.5 Mean Corpuscular Hemoglobin 34.3 Concent Red Cell Distribution Width 14.8 Platelet Count 177 Mean Platelet Volume 7.8 Neutrophils (%) (Auto) 92.2 Lymphocytes (%) (Auto) 5.1 Monocytes (%) (Auto) 2.5 Eosinophils (%) (Auto) 0.0 Basophils (%) (Auto) 0.2 Neutrophils # (Auto) 8.9 Lymphocytes # (Auto) 0.5 Monocytes # (Auto) 0.2 Eosinophils # (Auto) 0.0 Basophils # (Auto) 0.0 CBC Comment DIFF FINAL Differential Comment Sodium Level 138 Potassium Level 4.6 Chloride Level 105 Carbon Dioxide Level 20.6 Anion Gap 12 Blood Urea Nitrogen 30 Creatinine 1.54 Estimat Glomerular Filtration 54 Rate Random Glucose 110 Calcium Level 8.5 Phosphorus Level 3.9 Magnesium Level 2.3 ROS General: No: Fatigue, Weakness HEENT: No: Sore Throat, Dysphagia Cardiac: Chest Pain Pulmonary: Cough GI: No: Abdominal Pain, BM, Diarrhea, N/V /COTTON WRINGER: No: Dysuria, Urgency Neuro/MS: Other (joint pain), No: Lightheaded, Confusion Psych: No: Anxiety, Depression Skin: No: Itching, Rash Physical Exam Physical Exam GENERAL: This is a well-developed, well-nourished male who appears to be in no acute distress. He is alert and awake, answers questions appropriately. Anxious HEAD: Normocephalic without any lesion or mass noted. Facial features appear symmetric. OROPHARYNGEAL: Oropharynx without erythema or edema. NECK: Supple. No nuchal rigidity or lymphadenopathy. Trachea midline without deviation. CARDIAC: Regular rhythm, regular rate, S1 and S2 are heard. No Murmur no gallops or rubs. LUNGS: Diminished at bases, coughing, non productive. ABDOMEN: Soft, nontender, no organomegaly or masses. Bowel sounds are heard in all four quadrants. No rebound. No guarding. EXTREMITIES: No knee edema noted today Pulses equal bilateral. No cyanosis. Left club foot. Joint deformities hands noted. NEUROLOGICAL: Patient mood and affect appropriate, mild anxiety. No focal deficit SKIN:Warm and moist, dry Urinary Catheter: No Vascular Central Line Catheter: No A/P Diagnosis: (1) Atypical chest pain (2) Pleurisy (3) Interstitial lung disease (4) Hx of lupus nephritis (5) CKD (chronic kidney disease), stage III (6) RA (rheumatoid arthritis) (7) HTN (hypertension) (8) SLE (systemic lupus erythematosus) (9) Acute kidney injury Assessment and Plan appreciate card input telemetry monitoring no evidence of acs, likely chest pain is pleuritic echo done, EF 60% appreciate pulmonary input PFTs pending continue duonebs wean down IV steroids to 40 mg IV q 6 can't bring up secretions, add Mucinex 600 mg po BID renal fx stable dec. IVF to 75/hr continue Cellcept, pt. concerned about taking, states it's not working Continue Plaquenil Continue with bowel regimen Pain management improving, continue with above tx poss. discharge tomorrow D/W RN D/W Dr. Segura D/W pt This patient was seen by myself and Dr. Segura, this note is written on his behalf Discussed With: Nurse, Family (patient), Other (Dr. Segura, patient seen on his behalf) Problem Qualifiers (1) RA (rheumatoid arthritis): Qualified Code: M05.9 - Rheumatoid arthritis with positive rheumatoid factor, involving unspecified site (2) HTN (hypertension): Qualified Code: I10 - Essential hypertension (3) SLE (systemic lupus erythematosus): Qualified Code: M32.13 - Other systemic lupus erythematosus with lung involvement Karina Gramajo May 09, 2016 12:13
--- NOTE | 2016-05-09 14:51 | HHI.NPPN ---
Subjective History of Present Illness 25 year old with Lupus Nephritis Review of Systems Musculoskeletal MS: Pain/Stiffness Objective Data Data 05/08/16 05/09/16 19:00 07:00 Intake Total 2810 ml Output Total 900 ml Balance 1910 ml Intake Oral 1010 ml IV Total 1800 ml Output Urine Total 900 ml # Voids 8 # Bowel Movements 0 Vital Signs Date Time Temp Pulse Resp B/P Pulse Ox O2 Delivery O2 Flow Rate FiO2 05/09/16 12:00 97.0 81 20 123/89 96 05/09/16 10:08 97 21 05/09/16 08:34 97.5 65 20 135/84 97 05/09/16 04:00 96.3 72 18 147/93 97 05/09/16 00:00 97.1 68 18 128/77 98 05/08/16 22:14 82 05/08/16 20:00 97.3 74 18 127/78 96 05/08/16 16:49 99 21 05/08/16 16:30 96.6 79 18 128/85 96 -: 05/08/16 1332 05/08/16 1332 Physical Exam General Appearance: Well Developed Neck Neck Exam: Neck Supple Pulmonary Resp Exam: Clear Bilaterally, Breath Sounds Equal Cardiology CV Exam: Regular, Normal Sinus Rhythm Gastrointestinal/Abdomen GI Exam: Soft, Non-Tender, Bowel Sounds Present Extremeties Extremities Exam: No Edema Assessment/Plan Problem List: (1) Acute kidney injury Plan: resolving Cr 1.5 Avoid nephrotoxins Avoid giving him studies using intravenous contrast (2) CKD (chronic kidney disease), stage III Plan: This is due to lupus nephritis he was advised to restart the CellCept but he did not follow through he refuses to take Cellcept and will seek advice from Rheumatology as out pt I will sign off as he will follow with Rheumatology (3) RA (rheumatoid arthritis) Plan: Continue to monitor (4) HTN (hypertension) Plan: Monitor blood pressure (5) Hx of lupus nephritis Plan: He needs to be started restarted on CellCept Problem Qualifiers (1) RA (rheumatoid arthritis): Qualified Code: M05.9 - Rheumatoid arthritis with positive rheumatoid factor, involving unspecified site (2) HTN (hypertension): Qualified Code: I10 - Essential hypertension Kate Deutsch MD May 09, 2016 14:51
[2016-05-09] MEDS: guaiFENesin E.R. 600 MG TAB PO SCH ×2 (16:21→21:30)
[2016-05-09] MEDS: methylPREDNISolone SOD SUCC 40 MG/1 ML VIAL IV PUSH SCH ×2 (17:53→22:42)
--- NOTE | 2016-05-09 18:06 | HHI.PR ---
Subjective Remarks 25 YOWM with PF since age 7, had lung bx mild tightness in chest Congestion, not able to expactorate No fever Had cough with blood/ brown sp Objective Vital Signs Vital Signs Date Time Temp Pulse Resp B/P Pulse Ox O2 Delivery O2 Flow Rate FiO2 05/09/16 16:03 95.7 72 20 134/87 100 05/09/16 13:14 19 05/09/16 12:00 97.0 81 20 123/89 96 05/09/16 10:08 97 21 05/09/16 08:34 97.5 65 20 135/84 97 05/09/16 04:00 96.3 72 18 147/93 97 05/09/16 00:00 97.1 68 18 128/77 98 05/08/16 22:14 82 05/08/16 20:00 97.3 74 18 127/78 96 I/O 05/08/16 05/08/16 05/08/16 05/09/16 05/09/16 05/09/16 07:00 15:00 23:00 07:00 15:00 23:00 Intake Total 900 ml 650 ml 2160 ml 720 ml Output Total 400 ml 900 ml Balance 500 ml 650 ml 1260 ml 720 ml Intake Oral 650 ml 360 ml 720 ml IV Total 900 ml 1800 ml Output Urine Total 400 ml 900 ml # Voids 4 4 3 # Bowel Movements 0 Result Diagram: 05/08/16 1332 05/08/16 1332 Objective Remarks GENERAL: WBWN WM, NAD SKIN: Warm and dry. HEAD: Normocephalic. EYES: No scleral icterus. No injection or drainage. NECK: Supple, trachea midline. No JVD or lymphadenopathy. CARDIOVASCULAR: Regular rate and rhythm without murmurs, gallops, or rubs. RESPIRATORY: Breath sounds equal bilaterally. No accessory muscle use. Insp rales GASTROINTESTINAL: Abdomen soft, non-tender, nondistended. MUSCULOSKELETAL: No cyanosis, or edema. BACK: Nontender without obvious deformity. No CVA tenderness. A/P Assessment and Plan Pulm Fibrosis/ILD RA SLE IgA nephropathy Club foot PLAN: IV Solumedrol PFT Aerosol nebs Use Acapella Cardiac and renal connors underway. Will collect sp to see any hemoptysis Mario Torrez MD May 09, 2016 18:06
[2016-05-09] MEDS: ACETAMINOPHEN/HYDROcodone 325 MG/10 MG TAB PO PRN (23:17)
[2016-05-10] VITALS: BP 132/83; PULSE 68; RESP 18; TEMP 97.4; O2SAT 97
[2016-05-10] MEDS: HYDROmorphone HCL PF 1 MG/ML VIAL IV PUSH PRN ×2 (03:56→10:22)
[2016-05-10 04:00] VITALS: BP 134/91; PULSE 72; RESP 18; TEMP 97.1; O2SAT 97
[2016-05-10] MEDS: methylPREDNISolone SOD SUCC 40 MG/1 ML VIAL IV PUSH SCH (04:00)
[2016-05-10] MEDS: SODIUM CHLOR 0.45% 1000 ML INJ 1,000 ML IV SCH (07:05)
[2016-05-10 07:25] VITALS: BP 175/100; PULSE 68; RESP 19; TEMP 97.9; O2SAT 96
[2016-05-10] MEDS: RESP: ALBUTEROL 2.5 MG/IPRATROPIUM 0.5 MG NEB (SCH) NEB ×2 (07:37→11:07)
[2016-05-10] MEDS: guaiFENesin E.R. 600 MG TAB PO SCH (08:15)
[2016-05-10] MEDS: amLODIPine BESYLATE 5 MG TAB PO SCH (08:15)
[2016-05-10] MEDS: PANTOPRAZOLE SOD 20 MG DELAYED RELEASE TAB PO SCH (08:15)
[2016-05-10] MEDS: oxyCODONE/ACETAMINOPHEN 10 MG/325 MG TAB PO PRN (08:15)
[2016-05-10] MEDS: HYDROXYCHLOROQUINE SULFATE 200 MG TAB PO SCH (08:15)
[2016-05-10] MEDS: CARVEDILOL 12.5 MG TAB PO SCH (08:15)
[2016-05-10] MEDS: HEPARIN SODIUM - SQ 10,000 UNITS/ML VIAL SQ SCH (08:15)
[2016-05-10] MEDS: POLYETHYLENE GLYCOL 17 GM PKG PO SCH (09:00)
[2016-05-10] MEDS: SODIUM CHLORIDE 0.9% FLUSH 5 ML FLUSH FLUSH SCH (09:00)
[2016-05-10] MEDS: ONDANSETRON HCL 4 MG/2 ML VIAL IVP PRN (10:22)
[2016-05-10 11:45] VITALS: BP 131/81; PULSE 81; RESP 19; TEMP 96.8; O2SAT 96
--- NOTE | 2016-05-10 12:19 | HHI.PR ---
Subjective Remarks left sided chest pain with coughing worst today asking for more Dilaudid before he goes for PFT some dizziness when OOB, instructed to get up slowly duonebs are helping less cough mucinex helping doesn't feel ready to go home Objective Objective Results - Vital Signs Date Time Temp Pulse Resp B/P Pulse Ox O2 Delivery O2 Flow Rate FiO2 05/10/16 10:52 17 05/10/16 09:15 18 05/10/16 07:37 21 05/10/16 07:25 97.9 68 19 175/100 96 05/10/16 04:00 97.1 72 18 134/91 97 05/10/16 00:00 97.4 68 18 132/83 97 05/09/16 22:17 80 05/09/16 21:53 97 05/09/16 20:00 97.6 66 18 151/75 95 05/09/16 16:03 95.7 72 20 134/87 100 I/O 05/09/16 05/09/16 05/09/16 05/10/16 05/10/16 05/10/16 07:00 15:00 23:00 07:00 15:00 23:00 Intake Total 2160 ml 720 ml 480 ml 480 ml 900 ml Output Total 900 ml Balance 1260 ml 720 ml 480 ml 480 ml 900 ml Intake Oral 360 ml 720 ml 480 ml 480 ml IV Total 1800 ml 900 ml Output Urine Total 900 ml # Voids 4 3 3 3 # Bowel Movements 1 Result Diagram: 05/08/16 1332 05/08/16 1332 Imaging Last [address] Angiography 05/06/16 1824 Signed Impressions: Service Date/Time: Friday, May 06, 2016 18:51 - CONCLUSION: 1. Negative for pulmonary embolus. 2. Abnormal cystic disease in the lungs. Prior study not currently available for comparison. Differential diagnosis includes LCH, LIP and emphysema. Ariel Stratton MD Chest X-Ray 05/06/16 0000 Signed Impressions: Service Date/Time: Friday, May 06, 2016 14:36 - CONCLUSION: 1. Chronic fibrotic changes bilaterally unchanged from the prior study. No acute pulmonary disease. Alok Palma MD Other Results Date/Time Procedure Status Source Growth 05/09/16 16:41 Gram Stain - Final Resulted Sputum Expectorated Sputum 05/09/16 16:41 Sputum Culture - Preliminary Resulted Sputum Expectorated Sputum HEAVY GROWTH NORMAL RESPIRATORY LOLLY... 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 He is alert and awake, answers questions appropriately. Anxious HEAD: Normocephalic without any lesion or mass noted. Facial features appear symmetric. OROPHARYNGEAL: Oropharynx without erythema or edema. NECK: Supple. No nuchal rigidity or lymphadenopathy. Trachea midline without deviation. CARDIAC: Regular rhythm, regular rate, S1 and S2 are heard. No Murmur no gallops or rubs. LUNGS: Diminished at bases, coughing, non productive. ABDOMEN: Soft, nontender, no organomegaly or masses. Bowel sounds are heard in all four quadrants. No rebound. No guarding. EXTREMITIES: No knee edema noted today Pulses equal bilateral. No cyanosis. Left club foot. Joint deformities hands noted. NEUROLOGICAL: Patient mood and affect appropriate, mild anxiety. No focal deficit SKIN:Warm and moist, dry Urinary Catheter: No Vascular Central Line Catheter: No A/P Diagnosis: (1) Atypical chest pain (2) Pleurisy (3) Interstitial lung disease (4) Hx of lupus nephritis (5) CKD (chronic kidney disease), stage III (6) RA (rheumatoid arthritis) (7) HTN (hypertension) (8) SLE (systemic lupus erythematosus) (9) Acute kidney injury Assessment and Plan appreciate card input telemetry monitoring no evidence of acs, likely chest pain is pleuritic echo done, EF 60% appreciate pulmonary input PFTs pending continue duonebs wean down IV steroids to 40 mg IV BID Mucinex 600 mg po BID Sputum obtained, pending renal fx stable DC IVF refuses Cellcept, renal sign off, pt. recommended to f/u with rheumatology as OP Continue Plaquenil Continue with bowel regimen Pain management improving, continue with above tx poss. dc today or tomorrow D/W RN D/W Dr. Segura D/W pt This patient was seen by myself and Dr. Segura, this note is written on his behalf Discussed With: Nurse, Family (patient), Other (Dr. Segura, patient seen on his behalf) Problem Qualifiers (1) RA (rheumatoid arthritis): Qualified Code: M05.9 - Rheumatoid arthritis with positive rheumatoid factor, involving unspecified site (2) HTN (hypertension): Qualified Code: I10 - Essential hypertension (3) SLE (systemic lupus erythematosus): Qualified Code: M32.13 - Other systemic lupus erythematosus with lung involvement Karina Gramajo May 10, 2016 12:19
--- NOTE | 2016-05-10 14:19 | HHI.DCPOC ---
Discharge Care Plan Diagnosis: (1) Atypical chest pain (2) Hx of lupus nephritis (3) RA (rheumatoid arthritis) (4) Pleurisy (5) Interstitial lung disease Your Health Problems Are: Chest Pain Cough Shortness of Breath Goals to Promote Your Health * To prevent worsening of your condition and complications * To maintain your health at the optimal level Directions to Meet Your Goals Take your medications as prescribed Follow your dietary instruction Follow activity as directed Keep your appointments as scheduled Take your immunizations and boosters as scheduled If your symptoms worsen call your PCP, if no PCP go to Urgent Care Center or Emergency Room Smoking is Dangerous to Your Health. Avoid second hand smoke Call the 24-hour hour crisis hotline for domestic abuse at Karina Gramajo May 10, 2016 14:19
--- NOTE | 2016-05-10 14:20 | HHI.DS ---
Discharge Summary Admission Date May 06, 2016 at 20:20 Discharge Date: May 10, 2016 Admitting Diagnosis Chest Pain/Lupus Flair (1) Atypical chest pain (2) Pleurisy (3) Interstitial lung disease (4) Hx of lupus nephritis (5) CKD (chronic kidney disease), stage III (6) RA (rheumatoid arthritis) (7) HTN (hypertension) (8) SLE (systemic lupus erythematosus) (9) Acute kidney injury Brief History . CBC/BMP: 05/08/16 1332 05/08/16 1332 Significant Findings Laboratory Tests Test 05/08/16 13:32 Neutrophils (%) (Auto) 92.2 % (16.0-70.0) Lymphocytes (%) (Auto) 5.1 % (9.0-44.0) Neutrophils # (Auto) 8.9 TH/MM3 (1.8-7.7) Lymphocytes # (Auto) 0.5 TH/MM3 (1.0-4.8) Carbon Dioxide Level 20.6 MEQ/L (21.0-32.0) Blood Urea Nitrogen 30 MG/DL (7-18) Creatinine 1.54 MG/DL (0.60-1.30) Estimat Glomerular Filtration 54 ML/MIN (>89) Rate Random Glucose 110 MG/DL (74-106) Imaging Last Impressions CT Angiography 05/06/16 1824 Signed Impressions: Service Date/Time: Friday, May 06, 2016 18:51 - CONCLUSION: 1. Negative for pulmonary embolus. 2. Abnormal cystic disease in the lungs. Prior study not currently available for comparison. Differential diagnosis includes LCH, LIP and emphysema. Ariel Stratton MD Chest X-Ray 05/06/16 0000 Signed Impressions: Service Date/Time: Friday, May 06, 2016 14:36 - CONCLUSION: 1. Chronic fibrotic changes bilaterally unchanged from the prior study. No acute pulmonary disease. Alok Palma MD Hospital Course This is a 25-year-old male patient of Dr. Juan C Whalen. The patient has a history of lupus, rheumatoid with interstitial lung disease. He came into the emergency department at [facility] with 3 hours complaints of left flank pain: Central chest heaviness and difficulty breathing. He also complained of nausea, diarrhea and urinary frequency. He apparently stated that he had some blood in stool. Extremities, chronic. He was seen by Dr. Campos and subsequently he was evaluated in the the emergency department in the presence of his mother.No fever, chills or diaphoresis.The chest discomfort was worse with deep inspiration and with palpation. The patient had a history of pleurisy. Pt. was admitted for: (1) Atypical chest pain (2) Pleurisy (3) Interstitial lung disease (4) Hx of lupus nephritis (5) CKD (chronic kidney disease), stage III (6) RA (rheumatoid arthritis) (7) HTN (hypertension) (8) SLE (systemic lupus erythematosus) (9) Acute kidney injury During the course of the hospitalization, the following took place: Serial enzymes were ordered, ABG and imaging studies were ordered, CTA was negative for pulmonary emboli Chest x-ray showed chronic changes, no infiltrates ABGs were normal Cardiology and pulmonology were consulted Cardiac enzymes were negative, likely cause of chest pain was not ACS. Chest pain was likely pleuritic Cardiology signed off Patient's pain was managed with Dilaudid when necessary Pulmonology evaluated patient, PFTs were ordered Patient was given IV steroids and DuoNeb's He had a cough, with difficulty bringing up secretions, he was ordered Mucinex which improved expectoration echo done, EF 60% sputum culture was done, findings were negative Nephrology was also consulted because of history of lupus nephritis He was put on cautious hydration Blood pressure was managed, he was continued on home medications Patient was recommended to start CellCept, during his previous admission he had been recommended but patient never started it Again he was off her CellCept, was ordered per nephrology but patient declined Patient was instructed to find a local student services director for management of lupus, and RA, and nephritis Nephrology signed off the case Patient continued to request increased dosages of Dilaudid, patient has underlying chronic pain Patient's respiratory symptoms improved, no hypoxia, no fever Patient stable for discharge Patient discharged home and instructed to follow up with student services director of his choice Pt Condition on Discharge: Stable Discharge Disposition: Discharge Home Discharge Instructions DIET: Follow Instructions for: As Tolerated, No Restrictions Activities you can perform: Weight Bearing as Marilyn Follow up Referrals: Nephrology Rheumatology Continued Medications: Amlodipine (Norvasc) 5 Mg Tab 5 MG PO DAILY Blood Pressure Management #30 Ref 0 TAB Carvedilol (Coreg) 12.5 Mg Tab 12.5 MG PO Q12HR Blood Pressure Management #60 Ref 1 TAB Hydrocodone-Acetaminophen ([place]) 10-325 Mg Tab 1 TAB PO Q6H PRN PAIN Ref 0 TAB Hydroxychloroquine (Plaquenil) 200 Mg Tab 300 MG PO DAILY Take with food #30 Ref 0 TAB Oxycodone-Acetaminophen (Oxycodone-Acetaminophen) 10-325 mg Tab 1 TAB PO Q6H PRN PAIN #40 TAB Pantoprazole (Protonix) 20 Mg Tab 20 MG PO DAILY Reflux #30 Ref 0 TAB Prednisone (Prednisone) 10 Mg Tab 10 MG PO BID Inflammation #60 Ref 1 TAB Karina Gramajo May 10, 2016 14:20
[2016-05-10] MEDS ORDERED: methylPREDNISolone SOD SUCC 40 MG/1 ML VIAL IV PUSH SCH (21:00)
--- NOTE | 2016-05-13 10:20 | RSPPFT ---
DATE OF PROCEDURE: 05/10/16 COMMENTS: Spirometry shows FVC of 3.0 at 69% of predicted, FEV1 of 2.2 at 62%, FEV1/FVC ratio is decreased. Flow is decreased at FEF 25-75. There is no response after bronchodilator treatment. Lung volumes show an obstructive pattern. IMPRESSION: 1. Mild obstructive lung disease. 2. No response after bronchodilator treatment.
== END 2016-05-10 15:44 | disposition home or self-care (01) | DRG 546 ==
LOC: NEPC 12:42 → NEDA 20:20 → N05B 23:56
PROVIDERS: ADMIT Specialist; ATTEND Specialist
DX: M32.13 Lung involvement in systemic lupus erythematosus (principal); N17.9 Acute kidney failure, unspecified; J84.10 Pulmonary fibrosis, unspecified; N18.3 Chronic kidney disease, stage 3 (moderate); K92.1 Melena; R07.89 Other chest pain; I12.9 Hypertensive chronic kidney disease with stage 1 through stage 4 chronic kidney disease, or unspecified chronic kidney disease; J45.909 Unspecified asthma, uncomplicated; M06.9 Rheumatoid arthritis, unspecified; R35.0 Frequency of micturition; R19.7 Diarrhea, unspecified; R11.0 Nausea; K21.9 Gastro-esophageal reflux disease without esophagitis; Z86.14 Personal history of Methicillin resistant Staphylococcus aureus infection; Z88.0 Allergy status to penicillin; Z88.8 Allergy status to other drugs, medicaments and biological substances; Q66.89 Other specified congenital deformities of feet; F12.90 Cannabis use, unspecified, uncomplicated; M32.14 Glomerular disease in systemic lupus erythematosus; F41.9 Anxiety disorder, unspecified; Z23 Encounter for immunization; G47.00 Insomnia, unspecified; K59.00 Constipation, unspecified; G89.29 Other chronic pain
CPT/HCPCS: 36600; 71020; 71275; 80048; 80053; 81001; 82550; 82805; 83735; 84100; 84484; 85025; 85610; 85730; 87070; 87077; 87186; 87205; 87641; 90686; 90732; 93005; 93306; 94060; 94640; 94664; 96361; 96374; 96375; J1170; J1644; J2270; J2405; J2920; J2930; J7030; J7040; Q2038; Q9967

== ENCOUNTER 2016-06-17 11:25 | Emergency (ER) | payer MEDICAID, OTHER ==
[~2016-06-17] VITALS: Ht 165.1 cm; Wt 68.0 kg
[2016-06-17 11:33] VITALS: BP 114/91; PULSE 102; RESP 16; TEMP 97.7; O2SAT 96
[2016-06-17] MEDS ORDERED: ACET1CAP18 PO (11:51)
[2016-06-17] MEDS ORDERED: LORA-392 PO (11:53)
[2016-06-17] MEDS ORDERED: DEXAMETHASONE SOD PHOS 20 MG/5 ML VIAL IM ONE (12:00)
[2016-06-17] MEDS ORDERED: PRED10PA2 PO (12:02)
[2016-06-17] MEDS ORDERED: PRED20 PO (12:02)
--- NOTE | 2016-06-17 12:06 | PD ---
HPI Chief Complaint: Pain: Acute or Chronic Time Seen by Provider: 12:03 Travel History International Travel<30 days: No Contact w/Intl Traveler<30days: No Traveled to known affect area: No History of Present Illness HPI 26-year-old male with history of juvenile arthritis presents the emergency department with increasing generalized joint pain throughout. Patient denies fever, chills, shortness of breath, chest pain, abdominal issues. Patient is currently in the process of getting in with a local drafter detail. He just received his work from his insurance [employer] for referral. Patient states he has Lortab at home which he has been taking without much relief. He is requesting a course of prednisone. Patient has been admitted for this in the past. Patient is not asking for more pain medication at this time. Patient has a history of allergies to Dilaudid, latex , plastic tape, and penicillin. PFSH Past Medical History Arthritis: Yes (ra(whole body)) Asthma: Yes ([id number]) Autoimmune Disease: Yes (SLE) Blood Disorders: No Anxiety: Yes Depression: Yes Cancer: No Cardiovascular Problems: Yes (HYPERTENSION) High Cholesterol: No Chemotherapy: Yes (02/2015 3months kidney and RA issues) Chest Pain: Yes (with breathing dx process with bilat lung) Congestive Heart Failure: No COPD: No Cerebrovascular Accident: No Diabetes: No Diminished Hearing: No Endocrine: No Gastrointestinal Disorders: Yes (acid reflux) GERD: Yes Glaucoma: No Genitourinary: Yes Headaches: No Hepatitis: No Hiatal Hernia: No Heparin Induced Thrombocytopen: No Hypertension: Yes (htn stage II) Immune Disorder: Yes (SYSTEMIC LUPUS) Implanted Vascular Access Dvce: No Kidney Stones: Yes Musculoskeletal: Yes (arthritis) Neurologic: No Psychiatric: Yes Reproductive: No Respiratory: Yes (INTERSTITIAL LUNG DISEASE) Immunizations Current: Yes Migraines: No Myocardial Infarction: No Radiation Therapy: No Renal Failure: No Seizures: No Sickle Cell Disease: No Sleep Apnea: No Thyroid Disease: No Ulcer: No Past Surgical History Abdominal Surgery: No AICD: No Appendectomy: No Arteriovenous Shunt: No Cardiac Surgery: No Cholecystectomy: No Ear Surgery: No Endocrine Surgery: No Eye Surgery: No Genitourinary Surgery: Yes (kidney R biopsy 02/02/15) Gynecologic Surgery: No Joint Replacement: No Neurologic Surgery: No Oral Surgery: No Pacemaker: No Thoracic Surgery: Yes (right lung) Other Surgery: Yes (LUNG BIOPSY AT AGE 4 and jt fusion lt wrist left foot) Social History Alcohol Use: Yes (SOCIAL) Tobacco Use: No Substance Use: No Allergies-Medications (Allergen,Severity, Reaction): Coded Allergies: Dilaudid (Verified Allergy, Severe, RASH, 06/17/16) Penicillin (Verified Allergy, Severe, RASH, 06/17/16) Latex (Verified Allergy, Unknown, 06/17/16) Uncoded Allergies: PLASTIC TAPE (Allergy, Severe, RASH, 11/27/08) Reported Meds & Prescriptions Reported Meds & Active Scripts Active Prednisone 10 Mg Tab 10 Mg PO BID Norvasc (Amlodipine Besylate) 5 Mg Tab 5 Mg PO DAILY Coreg (Carvedilol) 12.5 Mg Tab 12.5 Mg PO Q12HR Reported Ativan (Lorazepam) 0.5 Mg Tab 0.5 Mg PO DAILY PRN Tylenol (Acetaminophen) 325 Mg Cap 800 Mg PO Q6H PRN [place] (Hydrocodone-Acetaminophen) 10-325 Mg Tab 1 Tab PO Q6H PRN Plaquenil (Hydroxychloroquine Sulfate) 200 Mg Tab 300 Mg PO DAILY Take with food Review of Systems Except as stated in HPI: all other systems reviewed are Neg General / Constitutional: No: Fever Eyes: No: Visual changes HENT: No: Headaches Cardiovascular: No: Chest Pain or Discomfort Respiratory: No: Shortness of Breath Gastrointestinal: No: Abdominal Pain Genitourinary: No: Dysuria Musculoskeletal: Positive: Arthralgias, No: Pain Skin: No Rash Neurologic: No: Weakness Psychiatric: No: Depression Endocrine: No: Polydipsia Hematologic/Lymphatic: No: Easy Bruising Physical Exam Narrative GENERAL: Patient appears in mild SKIN: Warm and dry. Normal color. Normal turgor. HEAD: Atraumatic. Normocephalic. EYES: Pupils equal and round. No scleral icterus. No injection or drainage. ENT: No nasal bleeding or discharge. Mucous membranes pink and moist. Pharynx is clear. NECK: Trachea midline. Neck is supple. CARDIOVASCULAR: Regular rate and rhythm. RESPIRATORY: No accessory muscle use. Clear to auscultation. Breath sounds equal bilaterally. MUSCULOSKELETAL: Extremities without clubbing, cyanosis, or edema. Patient has generalized deformities in the joints consistent with chronic rheumatoid juvenile arthritis. NEUROLOGICAL: Awake and alert. No obvious cranial nerve deficits. Motor grossly within normal limits. Five out of 5 muscle strength in the arms and legs. Normal speech. PSYCHIATRIC: Appropriate mood and affect; insight and judgment normal. Data Data Last Documented VS Vital Signs Date Time Temp Pulse Resp B/P Pulse Ox O2 Delivery O2 Flow Rate FiO2 06/17/16 11:33 97.7 102 16 114/91 96 Orders Dexamethasone Inj (Decadron Inj) (06/17/16 12:00) MDM Medical Decision Making Medical Screen Exam Complete: Yes Emergency Medical Condition: Yes Differential Diagnosis Arthralgia. Juvenile arthritis. Need for pain steroids. Narrative Course Patient is medically stable at time of exam. Patient is given Decadron 10 mg IM. Patient is given prednisone 80 mg daily for 7 days. Patient is then to start prednisone tapering pack as prescribed. Patient take pain medicine that he has at home as needed. Patient is followed a local drafter detail as discussed or return to emergency department if symptoms worsen. Diagnosis Primary Impression: RA (rheumatoid arthritis) Qualified Code: M05.79 - Rheumatoid arthritis involving multiple sites with positive rheumatoid factor Additional Impression: Intractable pain Additional Instructions: Patient is given Decadron 10 mg IM. Patient is given prednisone 80 mg daily for 7 days. Patient is then to start prednisone tapering pack as prescribed. Patient take pain medicine that he has at home as needed. Patient is followed a local drafter detail as discussed or return to emergency department if symptoms worsen. Scripts Prednisone (48) 10 mg tab Dose Pack 10 Mg Dspk10 Mg PO DIRECTED #1 DSPK To be started after the 80 mg pulse. Prov:Jaiden Rosenberg MD 06/17/16 Prednisone 20 Mg Tab80 Mg PO DIRECTED 7 Days Ref 0 Prov:Jaiden Rosenberg MD 06/17/16 Disposition: 01 DISCHARGE HOME Condition: Stable Rigoberto Mar Jun 17, 2016 12:06
== END 2016-06-17 12:51 | disposition home or self-care (01) ==
LOC: NEPB 11:25
DX: M05.89 Other rheumatoid arthritis with rheumatoid factor of multiple sites (principal); J45.909 Unspecified asthma, uncomplicated; I10 Essential (primary) hypertension; K21.9 Gastro-esophageal reflux disease without esophagitis; M32.9 Systemic lupus erythematosus, unspecified; Z87.442 Personal history of urinary calculi
CPT/HCPCS: 96372; 99283; J1100

== ENCOUNTER 2016-07-01 12:14 | Emergency (ER) | payer MEDICAID, OTHER ==
[~2016-07-01] VITALS: Ht 165.1 cm; Wt 67.0 kg
[~2016-07-01 12:14] MED LIST changes: +ACET1CAP18 PO; +LORA-392 PO; -OXYC1TAB36 PO; -PANT20 PO; +PRED10PA2 PO; +PRED20 PO
[2016-07-01 12:42] VITALS: BP 145/97; PULSE 101; RESP 16; TEMP 97.8; O2SAT 98
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
== END 2016-07-01 14:15 | disposition home or self-care (01) ==
LOC: NEPB 12:14
DX: S20.212A Contusion of left front wall of thorax, initial encounter (principal); I10 Essential (primary) hypertension; V43.52XA Car driver injured in collision with other type car in traffic accident, initial encounter; Y93.89 Activity, other specified; Y92.410 Unspecified street and highway as the place of occurrence of the external cause
CPT/HCPCS: 71010; 73030; 99283

== ENCOUNTER 2016-07-07 18:45 | Emergency (ER) | payer MEDICAID, OTHER ==
[~2016-07-07] VITALS: Ht 165.1 cm; Wt 63.0 kg
[2016-07-07 18:50] VITALS: BP_SYST 142; BP_SYST 201; BP_DIAS 78; BP_DIAS 97; PULSE 98; PULSE 99; RESP 15; TEMP 98.6; O2SAT 98
[2016-07-07 20:30] VITALS: BP 163/104; PULSE 91; RESP 18; O2SAT 96
[2016-07-07] MEDS ORDERED: PRED20 PO (20:47)
[2016-07-07] MEDS ORDERED: TEMA30CA PO (20:47)
[2016-07-07] MEDS ORDERED: SODIUM CHLOR 0.9% 1000 ML INJ 1,000 ML IV SCH (20:57)
[2016-07-07] MEDS ORDERED: SODIUM CHLORIDE 0.9% FLUSH 10 ML FLUSH IV FLUSH PRN (21:00)
[2016-07-07] MEDS ORDERED: MORPHINE SULFATE 4 MG/ML INJ IV PUSH ONE (21:00)
[2016-07-07] MEDS ORDERED: methylPREDNISolone SOD SUCC 125 MG/2 ML VIAL IV PUSH ONE (21:00)
--- NOTE | 2016-07-07 21:02 | PD ---
HPI Chief Complaint: Pain: Acute or Chronic Time Seen by Provider: 21:01 Travel History International Travel<30 days: No Contact w/Intl Traveler<30days: No Traveled to known affect area: No History of Present Illness HPI 26-year-old male with a history of juvenile rheumatoid arthritis, SLE, CKD, hypertension presents to the emergency department for evaluation of a flare of rheumatoid arthritis. Patient states he has pain all over. Worst in his knees , wrists and elbows. Aggravated with movement. Denies any alleviating factors. Symptoms are moderate. States that the symptoms have been ongoing for the past 3 weeks. He was seen here 3 weeks ago and started on an outpatient steroid taper which did not improve his symptoms. States that he typically takes Lortab as an outpatient for his pain as needed but has had a recent change in physicians and has been out of his Lortab for about a month. He denies any fever, chills, nausea, vomiting, chest pain, shortness of breath. No other complaints. He does not yet have a creative recruiter in the area as he moved here several months ago, states his soonest appointment with her creative recruiter is March 2017. PCP Dr. Whalen. [facility] Past Medical History Arthritis: Yes (ra(whole body)) Asthma: Yes ([id number]) Autoimmune Disease: Yes (SLE) Blood Disorders: No Anxiety: Yes Depression: Yes Cancer: No Cardiovascular Problems: Yes (HYPERTENSION) High Cholesterol: No Chemotherapy: Yes (02/2015 3months kidney and RA issues) Chest Pain: Yes (with breathing dx process with bilat lung) Congestive Heart Failure: No COPD: No Cerebrovascular Accident: No Diabetes: No Diminished Hearing: No Endocrine: No Gastrointestinal Disorders: Yes (acid reflux) GERD: Yes Glaucoma: No Genitourinary: Yes Hepatitis: No Hiatal Hernia: No Heparin Induced Thrombocytopen: No Hypertension: Yes (htn stage II) Immune Disorder: Yes (SYSTEMIC LUPUS) Implanted Vascular Access Dvce: No Kidney Stones: Yes Musculoskeletal: Yes (arthritis) Psychiatric: Yes Reproductive: No Respiratory: Yes (INTERSTITIAL LUNG DISEASE) Immunizations Current: Yes Migraines: No Myocardial Infarction: No Radiation Therapy: No Renal Failure: No Seizures: No Sickle Cell Disease: No Sleep Apnea: No Thyroid Disease: No Tetanus Vaccination: > 5 Years Influenza Vaccination: Yes Past Surgical History Abdominal Surgery: No AICD: No Appendectomy: No Arteriovenous Shunt: No Cardiac Surgery: No Ear Surgery: No Endocrine Surgery: No Eye Surgery: No Genitourinary Surgery: Yes (kidney R biopsy 02/02/15) Gynecologic Surgery: No Joint Replacement: No Oral Surgery: No Pacemaker: No Thoracic Surgery: Yes (right lung) Other Surgery: Yes (LUNG BIOPSY AT AGE 4 and jt fusion lt wrist left foot) Social History Alcohol Use: No Tobacco Use: No Substance Use: Yes (marijuana couple of days ago) Allergies-Medications (Allergen,Severity, Reaction): Coded Allergies: Dilaudid (Verified Allergy, Severe, RASH, 07/07/16) Penicillin (Verified Allergy, Severe, RASH, 07/07/16) Latex (Verified Allergy, Unknown, 07/07/16) Uncoded Allergies: PLASTIC TAPE (Allergy, Severe, RASH, 11/27/08) Reported Meds & Prescriptions Reported Meds & Active Scripts Active Medrol Dosepak (Methylprednisolone) 4 Mg Dspk 4 Mg PO DIRECTED Per Pharmacist direction Lortab (Hydrocodone-Acetaminophen) 5-325 Mg Tab 1 Tab PO Q6H PRN Norvasc (Amlodipine Besylate) 5 Mg Tab 5 Mg PO DAILY Coreg (Carvedilol) 12.5 Mg Tab 12.5 Mg PO Q12HR Reported Prednisone 20 Mg Tab 20 Mg PO DAILY Temazepam 30 Mg Cap 30 Mg PO HS PRN Ativan (Lorazepam) 0.5 Mg Tab 0.5 Mg PO DAILY PRN Tylenol (Acetaminophen) 325 Mg Cap 800 Mg PO Q6H PRN [place] (Hydrocodone-Acetaminophen) 10-325 Mg Tab 1 Tab PO Q6H PRN Plaquenil (Hydroxychloroquine Sulfate) 200 Mg Tab 300 Mg PO DAILY Take with food Review of Systems Except as stated in HPI: all other systems reviewed are Neg Physical Exam Narrative GENERAL: Well-nourished and well-developed pleasant male patient in no acute distress who is nontoxic appearing. SKIN: Warm and dry. HEAD: Normocephalic and atraumatic. EYES: No injection, drainage, or hyphema noted. PERRLA. EOMI. ENT: No nasal drainage noted. Oropharynx is clear. NECK: Supple and the trachea is midline. CARDIOVASCULAR: Regular rate and rhythm. RESPIRATORY: Breath sounds are equal bilaterally with no accessory muscle use, wheezing, rhonchi, or crackles. GASTROINTESTINAL: Abdomen is soft, non-tender, and nondistended. 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 Chronic left hand and wrist deformities. No swelling, cyanosis, or ecchymosis is present throughout the upper and lower extremities. Patient has full range of motion without any signs of neurovascular compromise. NEUROLOGICAL: Awake, alert, and oriented. Normal speech and gait. Cranial nerves are grossly intact. Data Data Last Documented VS Vital Signs Date Time Temp Pulse Resp B/P Pulse Ox O2 Delivery O2 Flow Rate FiO2 07/07/16 20:30 81 18 07/07/16 20:30 163/104 96 Room Air 07/07/16 18:50 98.6 Orders Complete Blood Count With Diff (07/07/16 20:57) Comprehensive Metabolic Panel (07/07/16 20:57) Iv Access Insert/Monitor (07/07/16 20:57) Ecg Monitoring (07/07/16 20:57) Oximetry (07/07/16 20:57) Morphine Inj (Morphine Inj) (07/07/16 21:00) Sodium Chlor 0.9% 1000 Ml Inj (Ns 1000 M (07/07/16 20:57) Sodium Chloride 0.9% Flush (Ns Flush) (07/07/16 21:00) Methylprednisolone So Succ Inj (Solumedr (07/07/16 21:00) Westergren Sedimentation Rate (07/07/16 20:57) Creatine Kinase (Cpk) (07/07/16 21:56) Labs Laboratory Tests Test 07/07/16 21:20 White Blood Count 6.9 TH/MM3 Red Blood Count 5.00 MIL/MM3 Hemoglobin 14.3 GM/DL Hematocrit 42.1 % Mean Corpuscular Volume 84.2 FL Mean Corpuscular Hemoglobin 28.6 PG Mean Corpuscular Hemoglobin 34.0 % Concent Red Cell Distribution Width 14.1 % Platelet Count 211 TH/MM3 Mean Platelet Volume 8.2 FL Neutrophils (%) (Auto) 74.3 % Lymphocytes (%) (Auto) 18.4 % Monocytes (%) (Auto) 4.9 % Eosinophils (%) (Auto) 1.7 % Basophils (%) (Auto) 0.7 % Neutrophils # (Auto) 5.1 TH/MM3 Lymphocytes # (Auto) 1.3 TH/MM3 Monocytes # (Auto) 0.3 TH/MM3 Eosinophils # (Auto) 0.1 TH/MM3 Basophils # (Auto) 0.0 TH/MM3 CBC Comment DIFF FINAL Differential Comment Erythrocyte Sedimentation Rate 48 mm/hr Sodium Level 139 MEQ/L Potassium Level 3.8 MEQ/L Chloride Level 107 MEQ/L Carbon Dioxide Level 22.7 MEQ/L Anion Gap 9 MEQ/L Blood Urea Nitrogen 19 MG/DL Creatinine 1.96 MG/DL Estimat Glomerular Filtration 41 ML/MIN Rate Random Glucose 89 MG/DL Calcium Level 8.7 MG/DL Total Bilirubin 0.5 MG/DL Aspartate Amino Transf 19 U/L (AST/SGOT) Alanine Aminotransferase 17 U/L (ALT/SGPT) Alkaline Phosphatase 67 U/L Total Creatine Kinase 46 U/L Total Protein 7.6 GM/DL Albumin 3.5 GM/DL [facility] Medical Decision Making Medical Screen Exam Complete: Yes Emergency Medical Condition: Yes Differential Diagnosis Rheumatoid arthritis exacerbation versus acute kidney injury versus dehydration versus electrolyte abnormality Narrative Course 26-year-old male with a history of rheumatoid arthritis and SLE presents to the emergency department for evaluation of joint pain all over. Patient is afebrile , vital signs are stable. Physical examination does show he has chronic joint deformities secondary to inflammation. IV access was obtained, labs and then drawn and sent. Patient is placed on cardiac telemetry and pulse oximetry monitoring. He is given IV fluids, morphine 4 mg IV and Solu-Medrol 125 milligrams IV. I did review the EMR which shows he was admitted twice about 2 months ago for exacerbations of his rheumatoid arthritis and acute kidney injury. Of note, he is stating that he has been out of his Lortab for 1 month - I did look it up on [employer] which shows he got a 30 day prescription of Lortab 06/05/16 meaning that he should have just ran out yesterday. CBC is unremarkable. Sedimentation rate is elevated at 48. CMP shows chronic kidney disease with a creatinine of 1.96, BUN 19, GFR 41. CPK is 46. Patient has remained stable and without complaint while here in the emergency department. He is being given a liter fluid to address his slightly elevated creatinine. The patient will be discharged with a steroid taper and prescription for Lortab. He has an appointment with pain management is advised to keep this appointment. Advised follow-up with a creative recruiter and his PCP. Patient verbalizes understanding and agreement with treatment plan. I discussed the case with my attending physician Dr. Castellanos who is aware of the patients history, physical examination findings, and treatment plan. Diagnosis Primary Impression: RA (rheumatoid arthritis) Qualified Code: M06.9 - Rheumatoid arthritis involving multiple sites, unspecified rheumatoid factor presence Referrals: Pain Management Pilot Teacher Patient Instructions: General Instructions, Rheumatoid Arthritis (ED) Additional Instructions: Take medications as prescribed. Do not take Lortab with alcohol or while driving. Follow-up with your Primary Care Physician. Return to the ED for any acute worsening of symptoms. Med/Other Pt SpecificInfo: Prescription(s) given Scripts Methylprednisolone Dosepak (Medrol Dosepak)4 Mg Dspk4 Mg PO DIRECTED #1 DSPK Ref 0 Per Pharmacist direction Prov:Soco Castellanos MD 07/07/16 Hydrocodone-Acetaminophen (Lortab)5-325 Mg Tab1 Tab PO Q6H PRN (PAIN GREATER THAN 6) #20 TAB Ref 0 Prov:Soco Castellanos MD 07/07/16 Disposition: 01 DISCHARGE HOME Condition: Stable Korin Duque Jul 07, 2016 21:01
[2016-07-07 21:37] LABS: AUTOMATED NEUTROPHIL # 5.1 TH/MM3 (1.8-7.7); BASOPHIL % 0.7 % (0.0-2.0); EOSINOPHIL # 0.1 TH/MM3 (0-0.4); EOSINOPHIL % 1.7 % (0.0-4.0); HEMATOCRIT 42.1 % (39.0-51.0); HEMO FLAGS DIFF FINAL; LYMPH % 18.4 % (9.0-44.0); LYMPHOCYTE # 1.3 TH/MM3 (1.0-4.8); MEAN CELL VOLUME 84.2 FL (80.0-100.0); MEAN CORPUSCULAR HEMOGLOBIN 28.6 PG (27.0-34.0); MONO % 4.9 % (0.0-8.0); NEUT % 74.3 % (16.0-70.0); PLATELET COUNT 211 TH/MM3 (150-450); RED CELL DISTRIBUTION WIDTH 14.1 % (11.6-17.2); WHITE BLOOD COUNT 6.9 TH/MM3 (4.0-11.0)
[2016-07-07 22:08] LABS: ALT (GPT) 17 U/L (12-78); ANION GAP 9 MEQ/L (5-15); AST (GOT) 19 U/L (15-37); BICARBONATE 22.7 MEQ/L (21.0-32.0); BLOOD UREA NITROGEN 19 MG/DL (7-18); CHLORIDE 107 MEQ/L (98-107); GLOMERULAR FILTRATION RATE 41 ML/MIN (>89); POTASSIUM 3.8 MEQ/L (3.5-5.1); SODIUM (NA) 139 MEQ/L (136-145); TOTAL BILIRUBIN ADULT 0.5 MG/DL (0.2-1.0)
[2016-07-07 22:09] LABS: ALKALINE PHOSPHATASE 67 U/L (45-117)
[2016-07-07] MEDS ORDERED: MEDR4PAK PO (22:46)
[2016-07-07] MEDS ORDERED: HYDR-3533 PO (22:46)
[2016-07-07 22:51] VITALS: O2SAT 100
--- NOTE | 2016-07-07 22:54 | PD ---
Data Data Last Documented VS Vital Signs Date Time Temp Pulse Resp B/P Pulse Ox O2 Delivery O2 Flow Rate FiO2 07/07/16 20:30 81 18 07/07/16 20:30 163/104 96 Room Air 07/07/16 18:50 98.6 Orders Complete Blood Count With Diff (07/07/16 20:57) Comprehensive Metabolic Panel (07/07/16 20:57) Iv Access Insert/Monitor (07/07/16 20:57) Ecg Monitoring (07/07/16 20:57) Oximetry (07/07/16 20:57) Morphine Inj (Morphine Inj) (07/07/16 21:00) Sodium Chlor 0.9% 1000 Ml Inj (Ns 1000 M (07/07/16 20:57) Sodium Chloride 0.9% Flush (Ns Flush) (07/07/16 21:00) Methylprednisolone So Succ Inj (Solumedr (07/07/16 21:00) Westergren Sedimentation Rate (07/07/16 20:57) Creatine Kinase (Cpk) (07/07/16 21:56) Labs Laboratory Tests Test 07/07/16 21:20 White Blood Count 6.9 TH/MM3 Red Blood Count 5.00 MIL/MM3 Hemoglobin 14.3 GM/DL Hematocrit 42.1 % Mean Corpuscular Volume 84.2 FL Mean Corpuscular Hemoglobin 28.6 PG Mean Corpuscular Hemoglobin 34.0 % Concent Red Cell Distribution Width 14.1 % Platelet Count 211 TH/MM3 Mean Platelet Volume 8.2 FL Neutrophils (%) (Auto) 74.3 % Lymphocytes (%) (Auto) 18.4 % Monocytes (%) (Auto) 4.9 % Eosinophils (%) (Auto) 1.7 % Basophils (%) (Auto) 0.7 % Neutrophils # (Auto) 5.1 TH/MM3 Lymphocytes # (Auto) 1.3 TH/MM3 Monocytes # (Auto) 0.3 TH/MM3 Eosinophils # (Auto) 0.1 TH/MM3 Basophils # (Auto) 0.0 TH/MM3 CBC Comment DIFF FINAL Differential Comment Erythrocyte Sedimentation Rate 48 mm/hr Sodium Level 139 MEQ/L Potassium Level 3.8 MEQ/L Chloride Level 107 MEQ/L Carbon Dioxide Level 22.7 MEQ/L Anion Gap 9 MEQ/L Blood Urea Nitrogen 19 MG/DL Creatinine 1.96 MG/DL Estimat Glomerular Filtration 41 ML/MIN Rate Random Glucose 89 MG/DL Calcium Level 8.7 MG/DL Total Bilirubin 0.5 MG/DL Aspartate Amino Transf 19 U/L (AST/SGOT) Alanine Aminotransferase 17 U/L (ALT/SGPT) Alkaline Phosphatase 67 U/L Total Creatine Kinase 46 U/L Total Protein 7.6 GM/DL Albumin 3.5 GM/DL [facility] Medical Record Reviewed: Yes Supervised Visit with KARIN: Yes Narrative Course I, Dr. Castellanos, have reviewed the advance practice practitioner's documentation and am in agreement, met with the patient face to face, made the diagnosis, and the medical decision making was done by me. *My assessment and Findings: The patient is a 26-year-old male who presents to [facility] emergency Department with a history of rheumatoid arthritis, systemic lupus erythematosus with associated nephritis and reported increased pain in his joints. The patient reports that he has been on Lortab for the last year and intermittently prior to that for his pain, however his primary care physician is currently out of the office and was not able to fill this prescription this month. The patient reports that additionally over the last 5 days he's had a diminished appetite and diarrhea intermittently for the last 2 days. According to his mother that is also at the bedside, diarrhea has been going around the house and multiple family members. The patient reports that he has an appointment with a pain management doctor for July 18. The patient also reports that he has an appointment with a geotechnician for March. The patient's physical examination was remarkable for deformity of bilateral hands related to joint abnormalities rheumatoid arthritis. Laboratory studies were ordered. The patient's laboratory studies were remarkable for a creatinine was 1.9, which is at the patient's baseline not improved compared to previously. The Patient was given a liter of normal saline IV fluids, Solu-Medrol IV. The patient will be discharged home with a prescription for Medrol Dosepak taper, Lortab. She was encouraged to follow up with a pain management doctor as previously instructed by his primary care physician, as the emergency department does not refill chronic pain medication on a regular basis. The patient is resting comfortably and feels better, is alert and in no distress. The patients results and examination findings with the patient. The repeat examination is unremarkable and benign. The history, exam, diagnostic testing, and current condition do not suggest any significant pathology to warrant further testing, continued ED treatment, admission, or surgical evaluation at this point. The vital signs have been stable. The patient does not have uncontrollable pain, intractable vomiting, or other significant symptoms. The patient's condition is stable and appropriate for discharge. The patient will pursue further outpatient evaluation with a primary care physician or other designated or consulting physician as indicated in the discharge instructions. The patient expressed understanding and was agreeable with this plan. Diagnosis Primary Impression: RA (rheumatoid arthritis) Qualified Code: M06.9 - Rheumatoid arthritis involving multiple sites, unspecified rheumatoid factor presence Referrals: Pain Management Project Program Manager Patient Instructions: General Instructions, Rheumatoid Arthritis (ED) Departure Forms: Tests/Procedures Additional Instruction: Take medications as prescribed. Do not take Lortab with alcohol or while driving. Follow-up with your Primary Care Physician. Return to the ED for any acute worsening of symptoms. Scripts Methylprednisolone Dosepak (Medrol Dosepak)4 Mg Dspk4 Mg PO DIRECTED #1 DSPK Ref 0 Per Pharmacist direction Prov:Soco Castellanos MD 07/07/16 Hydrocodone-Acetaminophen (Lortab)5-325 Mg Tab1 Tab PO Q6H PRN (PAIN GREATER THAN 6) #20 TAB Ref 0 Prov:Soco Castellanos MD 07/07/16 Disposition: 01 DISCHARGE HOME Condition: Stable Soco Castellanos MD Jul 07, 2016 22:54
== END 2016-07-07 23:01 | disposition home or self-care (01) ==
LOC: NEPC 18:45
DX: N18.3 Chronic kidney disease, stage 3 (moderate) (principal); M32.9 Systemic lupus erythematosus, unspecified; I12.9 Hypertensive chronic kidney disease with stage 1 through stage 4 chronic kidney disease, or unspecified chronic kidney disease; Z87.442 Personal history of urinary calculi
CPT/HCPCS: 80053; 82550; 85025; 85652; 96374; 96375; 99283; J2270; J2930; J7030

== ENCOUNTER 2016-07-18 09:24 | Emergency (ER) | payer MEDICAID ==
[~2016-07-18] VITALS: Ht 167.6 cm; Wt 65.0 kg
[~2016-07-18 09:24] MED LIST changes: +HYDR-3533 PO; +MEDR4PAK PO; -PRED10 PO; -PRED10PA2 PO; +TEMA30CA PO
[2016-07-18 09:26] VITALS: BP 152/108; PULSE 74; RESP 20; TEMP 98; O2SAT 98
[2016-07-18] MEDS ORDERED: SODIUM CHLORIDE 0.9% FLUSH 10 ML FLUSH IVF PRN (10:00)
[2016-07-18] MEDS ORDERED: SODIUM CHLOR 0.9% 1000 ML INJ 1,000 ML IV SCH (10:00)
[2016-07-18] MEDS ORDERED: MORPHINE SULFATE 4 MG/ML INJ IV PUSH ONE (10:00)
[2016-07-18] MEDS ORDERED: AMLO5 PO (10:04)
[2016-07-18 10:05] VITALS: RESP 18; O2SAT 97
[2016-07-18 10:10] VITALS: BP_SYST 119; BP_SYST 122; BP_DIAS 77; PULSE 72; RESP 18; O2SAT 97
[2016-07-18 10:38] VITALS: RESP 17
[2016-07-18 10:42] LABS: AUTOMATED NEUTROPHIL # 4.9 TH/MM3 (1.8-7.7); BASOPHIL # 0.1 TH/MM3 (0-0.2); BASOPHIL % 1.1 % (0.0-2.0); EOSINOPHIL % 0.1 % (0.0-4.0); HEMATOCRIT 41.6 % (39.0-51.0); HEMO FLAGS DIFF FINAL; LYMPH % 19.3 % (9.0-44.0); LYMPHOCYTE # 1.3 TH/MM3 (1.0-4.8); MEAN CORPUSCULAR HGB CONC 34.6 % (32.0-36.0); MONO % 5.7 % (0.0-8.0); NEUT % 73.8 % (16.0-70.0); PLATELET COUNT 287 TH/MM3 (150-450); RED BLOOD COUNT 4.95 MIL/MM3 (4.50-5.90); RED CELL DISTRIBUTION WIDTH 13.8 % (11.6-17.2); WHITE BLOOD COUNT 6.7 TH/MM3 (4.0-11.0)
[2016-07-18] MEDS ORDERED: ONDANSETRON HCL 4 MG/2 ML VIAL IV ONE (10:45)
[2016-07-18 10:58] LABS: ALT (GPT) 18 U/L (12-78); ANION GAP 11 MEQ/L (5-15); AST (GOT) 14 U/L (15-37); BICARBONATE 23.3 MEQ/L (21.0-32.0); BLOOD UREA NITROGEN 25 MG/DL (7-18); CHLORIDE 104 MEQ/L (98-107); GLOMERULAR FILTRATION RATE 48 ML/MIN (>89); MAGNESIUM 1.9 MG/DL (1.5-2.5); POTASSIUM 4.1 MEQ/L (3.5-5.1); SODIUM (NA) 138 MEQ/L (136-145)
[2016-07-18 11:00] LABS: ALKALINE PHOSPHATASE 68 U/L (45-117); TOTAL BILIRUBIN ADULT 0.3 MG/DL (0.2-1.0)
--- NOTE | 2016-07-18 11:01 | PD ---
HPI Chief Complaint: Flank/Kidney Pain Time Seen by Provider: 10:00 Travel History International Travel<30 days: No Contact w/Intl Traveler<30days: No Traveled to known affect area: No History of Present Illness HPI This is a 26-year-old male who has a history of SLE and rheumatoid arthritis who presents to the emergency department with bilateral flank pain, constant, moderate severity associated with dark urine. Patient reports this happens to him from time to time. He was recently seen in the emergency department with similar symptoms and received a steroid taper. He felt better but now his symptoms are worsening. 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 He reports he's been admitted twice in the past for similar symptoms. He denies any fevers or chills and denies any abdominal pain or vomiting. He takes Lortab for his symptoms but didn't take it this morning because he was coming to the emergency department. PFSH Past Medical History Arthritis: Yes (ra(whole body)) Asthma: Yes ([id number]) Autoimmune Disease: Yes (SLE) Blood Disorders: No Anxiety: Yes Depression: Yes Cardiovascular Problems: Yes (htn) High Cholesterol: No Chemotherapy: Yes (02/2015 3months kidney and RA issues) Chest Pain: Yes (with breathing dx process with bilat lung) Congestive Heart Failure: No COPD: No Cerebrovascular Accident: No Diabetes: No Diminished Hearing: No Endocrine: No Gastrointestinal Disorders: Yes (acid reflux) GERD: Yes Glaucoma: No Genitourinary: Yes Hepatitis: No Hiatal Hernia: No Heparin Induced Thrombocytopen: No Hypertension: Yes (htn stage II) Immune Disorder: Yes (SYSTEMIC LUPUS) Implanted Vascular Access Dvce: No Kidney Stones: Yes Musculoskeletal: Yes (arthritis) Psychiatric: Yes Reproductive: No Respiratory: Yes (interstitial lung dx) Immunizations Current: Yes Migraines: No Myocardial Infarction: No Radiation Therapy: No Renal Failure: No Seizures: No Sickle Cell Disease: No Sleep Apnea: No Thyroid Disease: No Tetanus Vaccination: < 5 Years Influenza Vaccination: Yes Past Surgical History Abdominal Surgery: No AICD: No Appendectomy: No Arteriovenous Shunt: No Cardiac Surgery: No Ear Surgery: No Endocrine Surgery: No Eye Surgery: No Genitourinary Surgery: Yes (kidney R biopsy 02/02/15) Gynecologic Surgery: No Joint Replacement: No Oral Surgery: No Pacemaker: No Thoracic Surgery: Yes (right lung) Other Surgery: Yes (LUNG BIOPSY AT AGE 4 and jt fusion lt wrist left foot) Social History Alcohol Use: No Tobacco Use: No Substance Use: Yes (marijuana couple of days ago) Allergies-Medications (Allergen,Severity, Reaction): Coded Allergies: Latex (Verified Allergy, Severe, rash, 07/18/16) Penicillin (Verified Allergy, Severe, RASH, 07/18/16) Uncoded Allergies: PLASTIC TAPE (Allergy, Severe, RASH, 11/27/08) Reported Meds & Prescriptions Reported Meds & Active Scripts Active Lortab (Hydrocodone-Acetaminophen) 5-325 Mg Tab 1 Tab PO Q6H PRN Coreg (Carvedilol) 12.5 Mg Tab 12.5 Mg PO Q12HR Reported Norvasc (Amlodipine Besylate) 5 Mg Tab 5 Mg PO DAILY Prednisone 20 Mg Tab 20 Mg PO DAILY Temazepam 30 Mg Cap 30 Mg PO HS PRN Ativan (Lorazepam) 0.5 Mg Tab 0.5 Mg PO DAILY PRN [place] (Hydrocodone-Acetaminophen) 10-325 Mg Tab 1 Tab PO Q6H PRN Plaquenil (Hydroxychloroquine Sulfate) 200 Mg Tab 300 Mg PO DAILY Take with food Review of Systems Except as stated in HPI: all other systems reviewed are Neg Physical Exam Narrative GENERAL:Well appearing, no acute distress SKIN: Focused skin assessment warm and dry. HEAD: Atraumatic. Normocephalic. EYES: Pupils equal and round. No injection or drainage. ENT: Moist mucous membranes NECK: Trachea midline. CARDIOVASCULAR: Regular rate and rhythm. No murmur appreciated. RESPIRATORY: Clear to auscultation. Breath sounds equal bilaterally. GASTROINTESTINAL: Abdomen soft, non-tender, nondistended. : Bilateral CVA tenderness MUSCULOSKELETAL: [place] neck deformity of both thumbs. NEUROLOGICAL: Awake and alert. No obvious cranial nerve deficits. Moving all extremities. PSYCHIATRIC: Appropriate mood and affect; insight and judgment normal. Data Data Last Documented VS Vital Signs Date Time Temp Pulse Resp B/P Pulse Ox O2 Delivery O2 Flow Rate FiO2 07/18/16 10:38 17 07/18/16 10:10 72 122/77 97 Room Air 119/77 07/18/16 09:26 98.0 Orders Electrocardiogram (07/18/16 10:00) Complete Blood Count With Diff (07/18/16 10:00) Comprehensive Metabolic Panel (07/18/16 10:00) Magnesium (Mg) (07/18/16 10:00) Ecg Monitoring (07/18/16 10:00) Bilateral Bp Monitoring (07/18/16 10:00) Iv Access Insert/Monitor (07/18/16 10:00) Oximetry (07/18/16 10:00) Oxygen Administration (07/18/16 10:00) Morphine Inj (Morphine Inj) (07/18/16 10:00) Sodium Chloride 0.9% Flush (Ns Flush) (07/18/16 10:00) Sodium Chlor 0.9% 1000 Ml Inj (Ns 1000 M (07/18/16 10:00) Urinalysis - C+S If Indicated (07/18/16 10:00) Ondansetron Inj (Zofran Inj) (07/18/16 10:45) Labs Laboratory Tests Test 07/18/16 07/18/16 10:25 11:55 White Blood Count 6.7 TH/MM3 Red Blood Count 4.95 MIL/MM3 Hemoglobin 14.4 GM/DL Hematocrit 41.6 % Mean Corpuscular Volume 84.0 FL Mean Corpuscular Hemoglobin 29.0 PG Mean Corpuscular Hemoglobin 34.6 % Concent Red Cell Distribution Width 13.8 % Platelet Count 287 TH/MM3 Mean Platelet Volume 8.6 FL Neutrophils (%) (Auto) 73.8 % Lymphocytes (%) (Auto) 19.3 % Monocytes (%) (Auto) 5.7 % Eosinophils (%) (Auto) 0.1 % Basophils (%) (Auto) 1.1 % Neutrophils # (Auto) 4.9 TH/MM3 Lymphocytes # (Auto) 1.3 TH/MM3 Monocytes # (Auto) 0.4 TH/MM3 Eosinophils # (Auto) 0.0 TH/MM3 Basophils # (Auto) 0.1 TH/MM3 CBC Comment DIFF FINAL Differential Comment Sodium Level 138 MEQ/L Potassium Level 4.1 MEQ/L Chloride Level 104 MEQ/L Carbon Dioxide Level 23.3 MEQ/L Anion Gap 11 MEQ/L Blood Urea Nitrogen 25 MG/DL Creatinine 1.72 MG/DL Estimat Glomerular Filtration 48 ML/MIN Rate Random Glucose 102 MG/DL Calcium Level 9.1 MG/DL Magnesium Level 1.9 MG/DL Total Bilirubin 0.3 MG/DL Aspartate Amino Transf 14 U/L (AST/SGOT) Alanine Aminotransferase 18 U/L (ALT/SGPT) Alkaline Phosphatase 68 U/L Total Protein 8.1 GM/DL Albumin 3.8 GM/DL Urine Color LIGHT-YELLOW Urine Turbidity CLEAR Urine pH 5.5 Urine Specific [place] 1.006 Urine Protein 30 mg/dL Urine Glucose (UA) NEG mg/dL Urine Ketones NEG mg/dL Urine Occult Blood MOD Urine Nitrite NEG Urine Bilirubin NEG Urine Urobilinogen LESS THAN 2.0 MG/DL Urine Leukocyte Esterase NEG Urine RBC 6 /hpf Urine WBC 1 /hpf Microscopic Urinalysis Comment CULT NOT INDICATED MDM Medical Decision Making Medical Screen Exam Complete: Yes Emergency Medical Condition: Yes Interpretation(s) Afebrile, no tachycardia, hypertensive No leukocytosis Renal insufficiency with a GFR of 48 slightly improved from prior visit Differential Diagnosis Acute renal failure, pyelonephritis, kidney stone Narrative Course This is a 26-year-old male who presents to the emergency department with bilateral flank pain. He has a history chronic kidney disease in the setting of his lupus. He was placed on a monitor and an IV is established. Kidney function was found to be about the same as prior and a little bit improved. He was given IV hydration and pain control. I suspect his pain is more related to his rheumatoid arthritis. I don't think he meets criteria for admission at this time. 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 Diagnosis Primary Impression: CKD (chronic kidney disease), stage III Patient Instructions: General Instructions Additional Instructions: If you develop severe or worsening abdominal pain, fever>100.4, persistent vomiting or inability to eat or drink return to the emergency department immediately. Follow up with your primary care physician in 1-2 days for a check-up. Med/Other Pt SpecificInfo: No Change to Meds Disposition: 01 DISCHARGE HOME Condition: Stable Donya Sandoval MD Jul 18, 2016 11:01
[2016-07-18 12:20] LABS: BLOOD, URINE MOD (NEG); GLUCOSE,URINE NEG (NEG); KETONE, URINE NEG (NEG); NITRITE,URINE NEG (NEG); PH, URINE 5.5 (5.0-8.5); URINE COLOR LIGHT-YELLOW (YELLW/STRAW)
[2016-07-18 12:29] LABS: COMMENT (UR) CULT NOT INDICATED; CULTURE IF INDICATED CULT NOT INDICATED
[2016-07-18 13:20] VITALS: BP 123/81
--- NOTE | 2016-07-18 14:50 | EKG ---
Date Performed: 07/18/2016 Time Performed: 10:57:20 PTAGE: 26 years EKG: Sinus rhythm NORMAL ECG PREVIOUS TRACING : 05/06/2016 16.08 No significant change from previous tracing noted. DOCTOR: Royce Hernández Interpretating Date/Time 07/18/2016 14:49:41
== END 2016-07-18 13:25 | disposition home or self-care (01) ==
LOC: NEPC 09:24
DX: N18.3 Chronic kidney disease, stage 3 (moderate) (principal); M06.9 Rheumatoid arthritis, unspecified; M32.9 Systemic lupus erythematosus, unspecified; I12.9 Hypertensive chronic kidney disease with stage 1 through stage 4 chronic kidney disease, or unspecified chronic kidney disease; R82.99 Other abnormal findings in urine; Z87.39 Personal history of other diseases of the musculoskeletal system and connective tissue; Z87.09 Personal history of other diseases of the respiratory system; Z86.59 Personal history of other mental and behavioral disorders; Z86.79 Personal history of other diseases of the circulatory system; Z87.19 Personal history of other diseases of the digestive system; Z87.448 Personal history of other diseases of urinary system
CPT/HCPCS: 80053; 81001; 83735; 85025; 93005; 96374; 96375; 99284; J2270; J2405; J7030

== ENCOUNTER 2016-08-15 22:21 | Emergency (ER) | payer MEDICAID ==
[~2016-08-15] VITALS: Ht 165.1 cm; Wt 62.0 kg
[~2016-08-15 22:21] MED LIST changes: -ACET1CAP18 PO; -MEDR4PAK PO
[2016-08-15 22:22] VITALS: BP 148/99; PULSE 86; RESP 16; TEMP 99.5; O2SAT 96
[2016-08-15] MEDS ORDERED: HYDR-3533 PO (23:33)
--- NOTE | 2016-08-15 23:38 | PD ---
HPI Chief Complaint: Injury Time Seen by Provider: 23:34 Travel History International Travel<30 days: No Contact w/Intl Traveler<30days: No Traveled to known affect area: No History of Present Illness HPI 26-year-old [id number] white male with a history of rheumatoid arthritis and lupus. He presents today with complaints of right shoulder pain 2-3 days. He states that he was moving things around in his room when the pain started. He denies any direct trauma. He also states that he's had a history of chronic pain and had been in pain management but has not been there in several months. He has an appointment to see his doctor on Friday. He denies any recent illness. No fever chills. No numbness or tingling. Pain is moderate. Worse with movement. No alleviating factors. PFSH Past Medical History Arthritis: Yes (ra(whole body)) Asthma: Yes ([id number]) Autoimmune Disease: Yes (SLE) Blood Disorders: No Anxiety: Yes Depression: Yes Cardiovascular Problems: Yes (htn) High Cholesterol: No Chemotherapy: Yes (02/2015 3months kidney and RA issues) Chest Pain: Yes (with breathing dx process with bilat lung) Congestive Heart Failure: No COPD: No Cerebrovascular Accident: No Diabetes: No Diminished Hearing: No Endocrine: No Gastrointestinal Disorders: Yes (acid reflux) GERD: Yes Glaucoma: No Genitourinary: Yes Hepatitis: No Hiatal Hernia: No Heparin Induced Thrombocytopen: No Hypertension: Yes (htn stage II) Immune Disorder: Yes (SYSTEMIC LUPUS) Implanted Vascular Access Dvce: No Kidney Stones: Yes Musculoskeletal: Yes (arthritis) Psychiatric: Yes Reproductive: No Respiratory: Yes (INTERSTIAL LUNG DISEASE) Immunizations Current: Yes Migraines: No Myocardial Infarction: No Radiation Therapy: No Renal Failure: No Seizures: No Sickle Cell Disease: No Sleep Apnea: No Thyroid Disease: No Past Surgical History Abdominal Surgery: No AICD: No Appendectomy: No Cardiac Surgery: No Ear Surgery: No Endocrine Surgery: No Eye Surgery: No Genitourinary Surgery: Yes (kidney R biopsy 02/02/15) Gynecologic Surgery: No Hysterectomy: Yes (HTN) Joint Replacement: No Oral Surgery: No Pacemaker: No Thoracic Surgery: Yes (right lung) Other Surgery: Yes (LUNG BIOPSY AT AGE 4 and jt fusion lt wrist left foot) Social History Alcohol Use: No Tobacco Use: No Substance Use: Yes (marijuana OCC) Allergies-Medications (Allergen,Severity, Reaction): Coded Allergies: Latex (Verified Allergy, Severe, rash, 07/18/16) Penicillin (Verified Allergy, Severe, RASH, 07/18/16) Uncoded Allergies: PLASTIC TAPE (Allergy, Severe, RASH, 11/27/08) Reported Meds & Prescriptions Reported Meds & Active Scripts Active Lortab (Hydrocodone-Acetaminophen) 5-325 Mg Tab 1 Tab PO Q8HR PRN Lortab (Hydrocodone-Acetaminophen) 5-325 Mg Tab 1 Tab PO Q6H PRN Coreg (Carvedilol) 12.5 Mg Tab 12.5 Mg PO Q12HR Reported Norvasc (Amlodipine Besylate) 5 Mg Tab 5 Mg PO DAILY Prednisone 20 Mg Tab 20 Mg PO DAILY Temazepam 30 Mg Cap 30 Mg PO HS PRN Ativan (Lorazepam) 0.5 Mg Tab 0.5 Mg PO DAILY PRN [place] (Hydrocodone-Acetaminophen) 10-325 Mg Tab 1 Tab PO Q6H PRN Plaquenil (Hydroxychloroquine Sulfate) 200 Mg Tab 300 Mg PO DAILY Take with food Review of Systems Except as stated in HPI: all other systems reviewed are Neg Physical Exam Narrative GENERAL: This is a well-nourished, well-developed patient, in no apparent distress. SKIN: No rashes, ecchymoses or lesions. Warm and dry. HEAD: Atraumatic. Normocephalic. EYES: PERRL, EOMI, no discharge or injection. No scleral icterus. EARS: Clear NOSE: Nasal turbinates appear normal. THROAT: Mucosa pink and moist. Airway patent. NECK: Trachea midline. supple, moves head freely. LUNGS: Clear to auscultation. CV: Regular in rhythm. ABDOMEN: Soft nontender. EXT: No clubbing cyanosis or edema. Patient has tenderness in the right glenohumeral joint. There is no erythema or warmth. There is mild crepitus. He has decreased active and passive range of motion. There is no pain in the elbow, wrist or hand. He has intact sensation with good distal pulses. He has chronic arthritic changes secondary to his rheumatoid arthritis. He has a left clubfoot. Postsurgical changes in his left wrist. Data Data Last Documented VS Vital Signs Date Time Temp Pulse Resp B/P Pulse Ox O2 Delivery O2 Flow Rate FiO2 08/15/16 22:22 99.5 86 16 148/99 96 Room Air MDM Medical Decision Making Medical Screen Exam Complete: Yes Emergency Medical Condition: Yes Medical Record Reviewed: Yes Differential Diagnosis MDM: High Differential diagnoses: Fracture, sprain, strain, dislocation, contusion, neurovascular injury, exacerbation of chronic pain, rheumatoid arthritis Narrative Course Patient's given Lortab 5 a grams by mouth for pain here in the ER. The patient is informed that we will give him a limited quantity of Lortab today. He understands that we will not refill any chronic pain medications through the ER. This is right shoulder pain, rheumatoid arthritis Diagnosis Primary Impression: Right shoulder pain Qualified Code: M25.511 - Acute pain of right shoulder Additional Impression: Rheumatoid arthritis Qualified Code: M05.711 - Rheumatoid arthritis involving right shoulder with positive rheumatoid factor Patient Instructions: General Instructions, Narcotic given in the ED Additional Instructions: Rest. Ice. Lortab. Follow-up with your doctor as scheduled on Friday. No refill of opiates through the ER. Med/Other Pt SpecificInfo: Prescription(s) given Scripts Hydrocodone-Acetaminophen (Lortab)5-325 Mg Tab1 Tab PO Q8HR PRN (PAIN) #12 TAB Prov:Violet Chilel DO 08/15/16 Disposition: 01 DISCHARGE HOME Condition: Stable Ariel Hobbs August 15, 2016 23:38
[2016-08-15] MEDS ORDERED: ACETAMINOPHEN/HYDROcodone 325 MG/5 MG TAB PO ONE (23:45)
[2016-08-15] MEDS ORDERED: PRED20 PO (23:59)
== END 2016-08-16 00:43 | disposition home or self-care (01) ==
LOC: NEPD 22:21
DX: M25.511 Pain in right shoulder (principal); M05.711 Rheumatoid arthritis with rheumatoid factor of right shoulder without organ or systems involvement
CPT/HCPCS: 99283

== ENCOUNTER 2016-08-16 04:11 | Emergency (ER) | payer MEDICAID ==
[~2016-08-16] VITALS: Ht 165.1 cm; Wt 62.0 kg
[2016-08-16 04:13] VITALS: BP 181/111; PULSE 75; RESP 16; TEMP 98.8; O2SAT 98
--- NOTE | 2016-08-16 04:49 | PD ---
HPI Chief Complaint: Pain: Acute or Chronic Time Seen by Provider: 04:42 Travel History International Travel<30 days: No Contact w/Intl Traveler<30days: No Traveled to known affect area: No History of Present Illness HPI 26-year-old male complains of right shoulder pain. Patient has history of rheumatoid arthritis. Patient states that he was taking Lortab 10 for pain. Patient was seen earlier today for right shoulder pain which started today. Patient denies any recent injury. Patient denies any recent fall. Patient states that joint is stiff with movement of the right shoulder. Patient denies any fever chills. Patient was given Lortab 5 and prescription for Lortab 5 earlier in the ED. Patient states that he had persistent pain despite taking Lortab 5. Patient denies any focal weakness or numbness of extremity. On a scale of 1-10 the pain is a 10. PFSH Past Medical History Arthritis: Yes (ra(whole body)) Asthma: Yes ([id number]) Autoimmune Disease: Yes (SLE) Blood Disorders: No Anxiety: Yes Depression: Yes Cardiovascular Problems: Yes (htn) High Cholesterol: No Chemotherapy: Yes (02/2015 3months kidney and RA issues) Chest Pain: Yes (with breathing dx process with bilat lung) Congestive Heart Failure: No COPD: No Cerebrovascular Accident: No Diabetes: No Diminished Hearing: No Endocrine: No Gastrointestinal Disorders: Yes (acid reflux) GERD: Yes Glaucoma: No Genitourinary: Yes Hepatitis: No Hiatal Hernia: No Heparin Induced Thrombocytopen: No Hypertension: Yes (htn stage II) Immune Disorder: Yes (SYSTEMIC LUPUS) Implanted Vascular Access Dvce: No Kidney Stones: Yes Musculoskeletal: Yes (arthritis) Psychiatric: Yes Reproductive: No Respiratory: Yes (INTERSTIAL LUNG DISEASE) Immunizations Current: Yes Migraines: No Myocardial Infarction: No Radiation Therapy: No Renal Failure: No Seizures: No Sickle Cell Disease: No Sleep Apnea: No Thyroid Disease: No Past Surgical History Abdominal Surgery: No AICD: No Appendectomy: No Cardiac Surgery: No Ear Surgery: No Endocrine Surgery: No Eye Surgery: No Genitourinary Surgery: Yes (kidney R biopsy 02/02/15) Gynecologic Surgery: No Hysterectomy: Yes (HTN) Joint Replacement: No Oral Surgery: No Pacemaker: No Thoracic Surgery: Yes (right lung) Other Surgery: Yes (LUNG BIOPSY AT AGE 4 and jt fusion lt wrist left foot) Social History Alcohol Use: No Tobacco Use: No Substance Use: Yes (marijuana OCC) Allergies-Medications (Allergen,Severity, Reaction): Coded Allergies: Latex (Verified Allergy, Severe, rash, 07/18/16) Penicillin (Verified Allergy, Severe, RASH, 07/18/16) Uncoded Allergies: PLASTIC TAPE (Allergy, Severe, RASH, 11/27/08) Reported Meds & Prescriptions Reported Meds & Active Scripts Active Coreg (Carvedilol) 12.5 Mg Tab 12.5 Mg PO Q12HR Reported Prednisone 20 Mg Tab 40 Mg PO DAILY Take 40 mg (2 tablets) daily for 5 days Norvasc (Amlodipine Besylate) 5 Mg Tab 5 Mg PO DAILY Temazepam 30 Mg Cap 30 Mg PO HS PRN Ativan (Lorazepam) 0.5 Mg Tab 0.5 Mg PO DAILY PRN [place] (Hydrocodone-Acetaminophen) 10-325 Mg Tab 1 Tab PO Q6H PRN Plaquenil (Hydroxychloroquine Sulfate) 200 Mg Tab 300 Mg PO DAILY Take with food Review of Systems General / Constitutional: No: Fever Eyes: No: Visual changes HENT: No: Headaches Cardiovascular: No: Chest Pain or Discomfort Respiratory: No: Shortness of Breath Gastrointestinal: No: Abdominal Pain Genitourinary: No: Dysuria Musculoskeletal: Positive: Pain Skin: No Rash Neurologic: No: Weakness Psychiatric: No: Depression Endocrine: No: Polydipsia Hematologic/Lymphatic: No: Easy Bruising Physical Exam Narrative GENERAL: Well-nourished, well-developed patient. SKIN: Focused skin assessment warm/dry. HEAD: Normocephalic. EYES: No scleral icterus. No injection or drainage. NECK: Supple, trachea midline. No JVD or lymphadenopathy. CARDIOVASCULAR: Regular rate and rhythm without murmurs, gallops, or rubs. RESPIRATORY: Breath sounds equal bilaterally. No accessory muscle use. GASTROINTESTINAL: Abdomen soft, non-tender, nondistended. MUSCULOSKELETAL: No cyanosis, or edema. BACK: Nontender without obvious deformity. No CVA tenderness. Patient has moderate diffuse tenderness over the right shoulder joint. No redness swelling no deformity noted. Limited range of motion the right shoulder secondary to pain. No redness no heat noted. Data Data Last Documented VS Vital Signs Date Time Temp Pulse Resp B/P Pulse Ox O2 Delivery O2 Flow Rate FiO2 08/16/16 04:13 98.8 75 16 181/111 98 Room Air MDM Medical Decision Making Medical Screen Exam Complete: Yes Emergency Medical Condition: Yes Medical Record Reviewed: Yes Differential Diagnosis Differential diagnosis including strain, tendinitis, bursitis, fracture, dislocation. Narrative Course 26-year-old male with right shoulder pain. Nontraumatic. History of rheumatoid arthritis. Decadron 8 mg IM. Diagnosis Primary Impression: Arthralgia of right shoulder region Patient Instructions: General Instructions Additional Instructions: Patient had prescription for Lortab earlier. Advised patient to take medications as directed. Follow-up with local physician. Return if worse. Med/Other Pt SpecificInfo: No Change to Meds Disposition: 01 DISCHARGE HOME Condition: Stable Tristan Rodrigues MD August 16, 2016 04:49
[2016-08-16] MEDS ORDERED: DEXAMETHASONE SOD PHOS 4 MG/ML VIAL IM ONE (05:00)
== END 2016-08-16 05:43 | disposition home or self-care (01) ==
LOC: NEPC 04:11
DX: M25.511 Pain in right shoulder (principal); M06.9 Rheumatoid arthritis, unspecified; M32.9 Systemic lupus erythematosus, unspecified; I10 Essential (primary) hypertension; K21.9 Gastro-esophageal reflux disease without esophagitis
CPT/HCPCS: 96372; 99283; J1100

== ENCOUNTER 2016-09-10 15:41 | Observation (INO) | payer MEDICAID ==
[~2016-09-10] VITALS: Ht 165.1 cm; Wt 60.0 kg
[~2016-09-10 15:41] MED LIST changes: -HYDR-3533 PO
[2016-09-10 15:42] VITALS: BP 149/84; PULSE 84; RESP 16; TEMP 97.8; O2SAT 98
--- NOTE | 2016-09-10 16:39 | PD ---
HPI Chief Complaint: Respiratory Symptoms Time Seen by Provider: 16:39 Travel History International Travel<30 days: No Contact w/Intl Traveler<30days: No Traveled to known affect area: No History of Present Illness HPI 26-year-old male with a history of juvenile rheumatoid arthritis, SLE, CKD, hypertension presents to the emergency department for evaluation of lower extremity edema with shortness of breath and chest pressure. The patient states that yesterday morning when he woke up he noticed he had bilateral lower extremity edema. States that he was seen by his PCP and prescribed Lasix 40 mg twice daily with potassium supplementation. States that he has taken 3 tablets of Lasix and has not had any improvement of symptoms. States that today he started to develop chest pressure and shortness of breath. He states that this has happened to him once in the past but it was secondary to a medication he was taking for his rheumatoid arthritis. He states that he did recently drive up to [place] and back to [place] over a matter of 3 days, this is a [address] He states he has not started any new medications recently. He denies any fever, chills, nausea, vomiting, lightheadedness, dizziness. No other complaints. PFSH Past Medical History Arthritis: Yes (ra(whole body)) Asthma: Yes ([id number]) Autoimmune Disease: Yes (SLE) Blood Disorders: No Anxiety: Yes Depression: Yes Cardiovascular Problems: Yes (HTN) High Cholesterol: No Chemotherapy: Yes (02/2015 3months kidney and RA issues) Chest Pain: Yes (with breathing dx process with bilat lung) Congestive Heart Failure: No COPD: No Cerebrovascular Accident: No Diabetes: No Diminished Hearing: No Endocrine: No Gastrointestinal Disorders: Yes (acid reflux) GERD: Yes Glaucoma: No Genitourinary: Yes Hepatitis: No Hiatal Hernia: No Heparin Induced Thrombocytopen: No Hypertension: Yes (htn stage II) Immune Disorder: Yes (SYSTEMIC LUPUS) Implanted Vascular Access Dvce: No Kidney Stones: Yes Musculoskeletal: Yes (arthritis) Psychiatric: Yes Reproductive: No Respiratory: Yes (INTERSTICIAL LUNG DISEASE ) Immunizations Current: Yes Migraines: No Myocardial Infarction: No Radiation Therapy: No Renal Failure: No Seizures: No Sickle Cell Disease: No Sleep Apnea: No Thyroid Disease: No Past Surgical History Abdominal Surgery: No AICD: No Appendectomy: No Cardiac Surgery: No Ear Surgery: No Endocrine Surgery: No Eye Surgery: No Genitourinary Surgery: Yes (kidney R biopsy 02/02/15) Gynecologic Surgery: No Hysterectomy: Yes (HTN) Joint Replacement: No Oral Surgery: No Pacemaker: No Thoracic Surgery: Yes (right lung) Other Surgery: Yes (LUNG BIOPSY AT AGE 4 and jt fusion lt wrist left foot) Social History Alcohol Use: No Tobacco Use: No Substance Use: Yes (marijuana OCC) Allergies-Medications (Allergen,Severity, Reaction): Coded Allergies: Latex (Verified Allergy, Severe, rash, 07/18/16) Penicillin (Verified Allergy, Severe, RASH, 07/18/16) Uncoded Allergies: PLASTIC TAPE (Allergy, Severe, RASH, 11/27/08) Reported Meds & Prescriptions Reported Meds & Active Scripts Active Coreg (Carvedilol) 12.5 Mg Tab 12.5 Mg PO Q12HR Reported Omeprazole 40 Mg Cap 40 Mg PO DAILY K-Tab (Potassium Chloride) 10 Meq Tab 10 Meq PO DAILY Lasix (Furosemide) 40 Mg Tab 40 Mg PO DAILY Gabapentin 300 Mg Cap 300 Mg PO TID Trazodone (Trazodone HCl) 50 Mg Tab 50-100 Mg PO HS PRN Prednisone 20 Mg Tab 20 Mg PO DAILY Clonazepam 0.5 Mg Tab 0.5 Mg PO DAILY Norvasc (Amlodipine Besylate) 5 Mg Tab 5 Mg PO DAILY [place] (Hydrocodone-Acetaminophen) 10-325 Mg Tab 1 Tab PO Q6H PRN Plaquenil (Hydroxychloroquine Sulfate) 200 Mg Tab 300 Mg PO DAILY Take with food Review of Systems Except as stated in HPI: all other systems reviewed are Neg Physical Exam Narrative GENERAL: Well-nourished and well-developed pleasant male patient in no acute distress who is nontoxic appearing. SKIN: Warm and dry. HEAD: Normocephalic and atraumatic. EYES: No injection, drainage, or hyphema noted. PERRLA. EOMI. ENT: No nasal drainage noted. Oropharynx is clear. NECK: Supple and the trachea is midline. CARDIOVASCULAR: Regular rate and rhythm. RESPIRATORY: Breath sounds are equal bilaterally with no accessory muscle use, wheezing, rhonchi, or crackles. GASTROINTESTINAL: Abdomen is soft, non-tender, and nondistended. MUSCULOSKELETAL: Bilateral lower extremity pitting edema 2+. Negative Homans sign bilaterally. No obvious deformities, cyanosis, or ecchymosis is present throughout the upper and lower extremities. Patient has full range of motion without any signs of neurovascular compromise. NEUROLOGICAL: Awake, alert, and oriented. Normal speech and gait. Cranial nerves are grossly intact. Data Data Last Documented VS Vital Signs Date Time Temp Pulse Resp B/P Pulse Ox O2 Delivery O2 Flow Rate FiO2 09/10/16 18:56 90 18 133/89 97 09/10/16 16:44 Room Air 09/10/16 15:42 97.8 Orders Complete Blood Count With Diff (09/10/16 16:36) Comprehensive Metabolic Panel (09/10/16 16:36) B-Type Natriuretic Peptide (09/10/16 16:36) Troponin I (09/10/16 16:36) Iv Access Insert/Monitor (09/10/16 16:36) Ecg Monitoring (09/10/16 16:36) Oximetry (09/10/16 16:36) Oxygen Administration (09/10/16 16:36) Chest, Single Ap (09/10/16 16:36) Sodium Chloride 0.9% Flush (Ns Flush) (09/10/16 16:45) Ct Pulmonary Angiogram (09/10/16 16:53) Prothrombin Time / Inr (Pt) (09/10/16 17:05) Act Partial Throm Time (Ptt) (09/10/16 17:05) Us Leg Venous Doppler Bilat (09/10/16 ) Morphine Inj (Morphine Inj) (09/10/16 19:00) Ondansetron Inj (Zofran Inj) (09/10/16 19:15) Iohexol 350 Inj (Omnipaque 350 Inj) (09/10/16 20:00) Admit Order (Ed Use Only) (09/10/16 20:48) Activity Bed Rest With Brp (09/10/16 20:48) Vital Signs (Adult) Q4H (09/10/16 20:48) Cardiac Rhythm .As Directed (09/10/16 20:48) Notify Dr: Other .PRN (09/10/16 20:48) Notify Parameters (09/10/16 20:48) Resp Oxygen Nasal Cannula (09/10/16 ) Diet Npo (09/11/16 Breakfast) Ckmb (Isoenzyme) Profile (09/10/16 20:50) Ckmb (Isoenzyme) Profile (09/10/16 23:50) Troponin I (09/10/16 20:50) Troponin I (09/10/16 23:50) Electrocardiogram (09/10/16 20:48) Electrocardiogram (09/10/16 23:48) ^ Obtain (09/10/16 20:48) Sodium Chloride 0.9% Flush (Ns Flush) (09/10/16 21:00) Sodium Chloride 0.9% Flush (Ns Flush) (09/10/16 21:00) Acetamin-Hydrocod 325-7.5 Mg (Neely 7.5 (09/10/16 21:00) Ondansetron Inj (Zofran Inj) (09/10/16 21:00) Lineman / Telemetry RICHARDSON.Q8H (09/10/16 20:48) Labs Laboratory Tests Test 09/10/16 17:00 White Blood Count 11.2 TH/MM3 Red Blood Count 4.62 MIL/MM3 Hemoglobin 12.8 GM/DL Hematocrit 38.4 % Mean Corpuscular Volume 83.2 FL Mean Corpuscular Hemoglobin 27.8 PG Mean Corpuscular Hemoglobin 33.4 % Concent Red Cell Distribution Width 13.9 % Platelet Count 256 TH/MM3 Mean Platelet Volume 8.4 FL Neutrophils (%) (Auto) 84.5 % Lymphocytes (%) (Auto) 10.9 % Monocytes (%) (Auto) 3.5 % Eosinophils (%) (Auto) 1.0 % Basophils (%) (Auto) 0.1 % Neutrophils # (Auto) 9.5 TH/MM3 Lymphocytes # (Auto) 1.2 TH/MM3 Monocytes # (Auto) 0.4 TH/MM3 Eosinophils # (Auto) 0.1 TH/MM3 Basophils # (Auto) 0.0 TH/MM3 CBC Comment DIFF FINAL Differential Comment Prothrombin Time 9.7 SEC Prothromb Time International 0.9 RATIO Ratio Activated Partial 24.3 SEC Thromboplast Time Sodium Level 140 MEQ/L Potassium Level 4.2 MEQ/L Chloride Level 103 MEQ/L Carbon Dioxide Level 28.4 MEQ/L Anion Gap 9 MEQ/L Blood Urea Nitrogen 20 MG/DL Creatinine 1.75 MG/DL Estimat Glomerular Filtration 47 ML/MIN Rate Random Glucose 100 MG/DL Calcium Level 9.4 MG/DL Total Bilirubin 0.1 MG/DL Aspartate Amino Transf 28 U/L (AST/SGOT) Alanine Aminotransferase 27 U/L (ALT/SGPT) Alkaline Phosphatase 99 U/L Troponin I LESS THAN 0.02 NG/ML B-Type Natriuretic Peptide 100 PG/ML Total Protein 7.7 GM/DL Albumin 3.3 GM/DL MDM Medical Decision Making Medical Screen Exam Complete: Yes Emergency Medical Condition: Yes Differential Diagnosis Fluid overload versus kidney failure versus heart failure versus electrolyte abnormality Narrative Course 26-year-old male with a history of severe juvenile rheumatoid arthritis, lupus, chronic kidney disease and hypertension presents to the emergency department for evaluation of bilateral lower extremity edema for 2 days with chest pressure and shortness of breath. Patient is afebrile, vital signs are stable. He does have bilateral lower extremity pitting edema. The lungs are clear to auscultation. EKG shows sinus rhythm with no acute ST elevations or depressions. IV access is obtained, labs were drawn and sent. Patient is placed on quality assurance monitor and pulse oximeter monitoring. Chest x-ray shows chronic interstitial disease. No acute abnormality. CBC shows slightly elevated white blood cell count of 11.2, mild anemia with hemoglobin 12.8, hematocrit 38.4. CMP shows renal insufficiency with a creatinine of 1.75, BUN 20, GFR 47. This appears to be similar to patient's labs over the last 6 months. Troponin is less than 0.02. BNP is 100. Bilateral lower extremity ultrasound is negative for DVT. CT pulmonary angiogram is negative for PE. 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 Patient is reassessed and reports that his chest pain and pressure has persisted. He has remained stable while here in the emergency department. Labs and imaging are unremarkable for any acute abnormalities. The swelling in his lower extremities could be secondary to dependent edema. I discussed case with my attending physician Dr. Herbert who also evaluated the patient and recommends admission to chest pain center. Patient verbalizes understanding and is in agreement with treatment plan. Diagnosis Primary Impression: Chest pain Qualified Code: R07.9 - Chest pain, unspecified type Additional Impression: Bilateral lower extremity edema Admitting Information Admitting Physician Requests: Korin Cordova Sep 10, 2016 16:39
[2016-09-10 16:41] VITALS: BP 129/85; PULSE 90; RESP 18; O2SAT 98
[2016-09-10] MEDS ORDERED: SODIUM CHLORIDE 0.9% FLUSH 10 ML FLUSH IVF PRN (16:45)
--- NOTE | 2016-09-10 17:03 | RADRPT ---
EXAM DATE/TIME: 09/10/2016 16:48 [facility] COMPARISON: CHEST SINGLE AP, July 01, 2016, 13:26. INDICATIONS : Short of breath, lower extremity edema for 2 days MEDICAL HISTORY : Rheumatoid arthritis. Lupus. renal hypertension, interstitial lung disease, club foot SURGICAL HISTORY : club foot repair x 2, left wrist, renal biopsy, lung biopsy ENCOUNTER: Initial ACUITY: 2 days PAIN SCORE: 0/10 LOCATION: Bilateral chest FINDINGS: Diffuse interstitial prominence is similar to prior chest x-ray. No focal areas of consolidation no nodules seen. Both hemidiaphragms well delineated. Heart is normal in size. CONCLUSION: Chronic interstitial disease. No evidence of pleural effusion or focal nodule. Rik Sheehan MD on September 10, 2016 at 17:00 Board Certified Radiologist. This report was verified electronically.
[2016-09-10 17:20] LABS: AUTOMATED NEUTROPHIL # 9.5 TH/MM3 (1.8-7.7); BASOPHIL % 0.1 % (0.0-2.0); EOSINOPHIL # 0.1 TH/MM3 (0-0.4); HEMATOCRIT 38.4 % (39.0-51.0); HEMO FLAGS DIFF FINAL; LYMPH % 10.9 % (9.0-44.0); LYMPHOCYTE # 1.2 TH/MM3 (1.0-4.8); MEAN CELL VOLUME 83.2 FL (80.0-100.0); MEAN CORPUSCULAR HEMOGLOBIN 27.8 PG (27.0-34.0); MEAN CORPUSCULAR HGB CONC 33.4 % (32.0-36.0); MONO % 3.5 % (0.0-8.0); NEUT % 84.5 % (16.0-70.0); PLATELET COUNT 256 TH/MM3 (150-450); RED BLOOD COUNT 4.62 MIL/MM3 (4.50-5.90); RED CELL DISTRIBUTION WIDTH 13.9 % (11.6-17.2); WHITE BLOOD COUNT 11.2 TH/MM3 (4.0-11.0)
[2016-09-10 17:29] LABS: APTT (PATIENT) 24.3 SEC (24.3-30.1); INTERNATIONAL NORMALIZED RATIO 0.9 RATIO; PROTHROMBIN TIME - PATIENT 9.7 SEC (9.8-11.6)
[2016-09-10 17:41] LABS: ALKALINE PHOSPHATASE 99 U/L (45-117); TOTAL BILIRUBIN ADULT 0.1 MG/DL (0.2-1.0)
[2016-09-10 17:52] LABS: ALT (GPT) 27 U/L (12-78); ANION GAP 9 MEQ/L (5-15); AST (GOT) 28 U/L (15-37); BICARBONATE 28.4 MEQ/L (21.0-32.0); BLOOD UREA NITROGEN 20 MG/DL (7-18); CHLORIDE 103 MEQ/L (98-107); GLOMERULAR FILTRATION RATE 47 ML/MIN (>89); POTASSIUM 4.2 MEQ/L (3.5-5.1); SODIUM (NA) 140 MEQ/L (136-145)
[2016-09-10] MEDS ORDERED: CLON0.5T PO (18:08)
[2016-09-10] MEDS ORDERED: TRAZ50TA12 PO (18:08)
[2016-09-10] MEDS ORDERED: PRED20 PO (18:08)
[2016-09-10] MEDS ORDERED: FURO1TAB60 PO (18:08)
[2016-09-10] MEDS ORDERED: GABA300C5 PO (18:08)
[2016-09-10] MEDS ORDERED: K-TA10TA PO (18:08)
[2016-09-10] MEDS ORDERED: OMEP40CA2 PO (18:08)
--- NOTE | 2016-09-10 18:41 | RADRPT ---
EXAM DATE/TIME: 09/10/2016 18:00 [facility] COMPARISON: No previous studies available for comparison. INDICATIONS : Bilateral leg swelling. MEDICAL HISTORY : Rheumatoid arthritis. Arthritis. Renal calculi. HTN. Chest pain. Intersticial lung disease. Asthma. D yspnea. GERD. Renal disease. Substance use. Depression. Anxiety. Systemic lupus. MRSA. SURGICAL HISTORY : Right lung surgery. Right renal biopsy. Left club foot reconstruction. Left wrist reconstruction. Kia motherapy. Lung biopsy. ENCOUNTER: Initial ACUITY: 2 day PAIN SCORE: 10/10 LOCATION: Bilateral leg. TECHNIQUE: Venous ultrasound of the left and right leg was performed from the inguinal ligament to the proximal calf. Real-time, color Doppler and spectral tracing, compression and augmentation techniques were us ed. FINDINGS: RIGHT LEG: There is normal compressibility of the deep venous system from the inguinal region to the proximal ca lf. No echogenic clot is seen in the lumen of the common femoral, femoral, popliteal, and posterior tibial veins. There is a normal response of the venous system to proximal and distal augmentation an d respiration. LEFT LEG: There is normal compressibility of the deep venous system from the inguinal region to the proximal ca lf. No echogenic clot is seen in the lumen of the common femoral, femoral, popliteal, and posterior tibial veins. There is a normal response of the venous system to proximal and distal augmentation an d respiration. CONCLUSION: 1. No DVT in either lower extremity. 2. Small lymph nodes in the groin bilaterally. Leon Díaz MD on September 10, 2016 at 18:38 Board Certified Radiologist. This report was verified electronically.
[2016-09-10 18:56] VITALS: BP 133/89; PULSE 90; RESP 18; O2SAT 97
[2016-09-10] MEDS ORDERED: MORPHINE SULFATE 4 MG/ML INJ IV PUSH ONE (19:00)
[2016-09-10] MEDS ORDERED: ONDANSETRON HCL 4 MG/2 ML VIAL IV PUSH ONE (19:15)
[2016-09-10] MEDS ORDERED: IOHEXOL 350 MG/ML 10 ML VIAL (for RAD DIAG) IV ONE (20:00)
--- NOTE | 2016-09-10 20:12 | RADRPT ---
EXAM DATE/TIME: 09/10/2016 19:46 [facility] COMPARISON: CT PULMONARY ANGIOGRAM, May 06, 2016, 18:51. INDICATIONS : Shortness of breath and chest pain. Bilateral leg swelling. IV CONTRAST: 71 cc Omnipaque 350 (iohexol) IV RADIATION DOSE: 23.45 CTDIvol (mGy) MEDICAL HISTORY : Hypertension. Intersticial lung disease. Systemic lupus. SURGICAL HISTORY : Right lung surgery. ENCOUNTER: Initial ACUITY: 1 day PAIN SCALE: 6/10 LOCATION: Bilateral chest TECHNIQUE: Volumetric scanning of the chest was performed using a pulmonary embolism protocol MIP images were re constructed. Using automated exposure control and adjustment of the mA and/or kV according to patien t size, radiation dose was kept as low as reasonably achievable to obtain optimal diagnostic quality images. FINDINGS: PULMONARY ARTERIES: No filling defects are seen in the pulmonary arteries through the segmental level. LUNGS: There is no consolidation or pneumothorax . No concerning pulmonary nodule is visualized. Numerous t hin-walled cysts likely secondary to [place]. PLEURAE: There is no pleural thickening or pleural effusion. MEDIASTINUM: There is good visualization of the great vessels of the middle mediastinum. Small mediastinal lymph n odes largest in the subcarinal region. MUSCULOSKELETAL: Within normal limits for patient age. MISCELLANEOUS: The visualized upper abdominal organs demonstrate no acute abnormality. CONCLUSION: 1. No evidence for pulmonary embolism. 2. 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 Leon Díaz MD on September 10, 2016 at 20:06 Board Certified Radiologist. This report was verified electronically.
[2016-09-10] MEDS: SODIUM CHLORIDE 0.9% FLUSH 10 ML FLUSH IV FLUSH SCH (20:54)
[2016-09-10] MEDS ORDERED: ONDANSETRON HCL 4 MG/2 ML VIAL IV PRN (21:00)
[2016-09-10] MEDS ORDERED: SODIUM CHLORIDE 0.9% FLUSH 10 ML FLUSH IV FLUSH PRN (21:00)
[2016-09-10 21:26] VITALS: BP 127/88; PULSE 79; O2SAT 97
[2016-09-10 21:48] VITALS: O2SAT 98
[2016-09-10 22:02] LABS: CREATINE KINASE 45 U/L (39-308)
[2016-09-10 22:53] VITALS: BP 132/85; PULSE 88; RESP 18; TEMP 97; O2SAT 97
[2016-09-10] MEDS: ACETAMINOPHEN/HYDROcodone 325 MG/7.5 MG TAB PO PRN (22:55)
[2016-09-10 23:51] LABS: CREATINE KINASE 45 U/L (39-308)
[2016-09-11 00:52] VITALS: PULSE 80
[2016-09-11] MEDS: ACETAMINOPHEN/HYDROcodone 325 MG/7.5 MG TAB PO PRN ×3 (03:38→13:14)
[2016-09-11 04:00] VITALS: BP 117/78; PULSE 81; RESP 20; TEMP 97.5; O2SAT 98
[2016-09-11] MEDS ORDERED: MORPHINE SULFATE 4 MG/ML INJ IV PUSH PRN (07:30)
[2016-09-11] MEDS ORDERED: RESP: ALBUTEROL 2.5 MG/IPRATROPIUM 0.5 MG NEB (PRN) INH (07:30)
[2016-09-11 07:32] VITALS: BP 138/91; PULSE 83; RESP 14; TEMP 98.1; O2SAT 94
[2016-09-11] MEDS ORDERED: RESP: ALBUTEROL 2.5 MG/IPRATROPIUM 0.5 MG NEB (SCH) INH ONE (07:45)
[2016-09-11 07:58] VITALS: O2SAT 96
[2016-09-11 09:00] VITALS: PULSE 72
[2016-09-11] MEDS: SODIUM CHLORIDE 0.9% FLUSH 10 ML FLUSH IV FLUSH SCH (09:00)
--- NOTE | 2016-09-11 09:30 | HHI.HP ---
[facility] Primary Care Physician Juan C Whalen M.D. Chief Complaint Chest heaviness and shortness of breath History of Present Illness This is a 26-year-old male with history of lupus, rheumatoid arthritis, chronic kidney disease, interstitial lung disease, and hypertension that presents with a complaint of chest heaviness for 2 days as well as shortness of breath. He states that he has not seen a mallet cutter in some time. He states his last PFT was to 3 years ago and he thinks that his lung capacity was about 60%. He does have a local clerical order filler and primary care physician. Does not have local air export logistics manager. States he does not have anymore inhalers but that has worked in the past. He's had no associated nausea or diaphoresis with this chest discomfort. Found nothing really to worsen the symptoms. Nothing really seemed to bring on. He has recently driven back and forth to [place]. He is complaining of swelling in his legs. Review of Systems General: Patient denies fevers, chills recent, and recent travel HEENT: Patient denies headache, sore throat, difficulty swallowing. Cardiovascular: Has the chest discomfort as mentioned above. Denies sensation of heart beating rapidly or irregularly. No syncope. Denies diaphoresis. Respiratory: He has been short of breath. Denies inspirational chest discomfort. Denies coughing wheezing or hemoptysis. GI: Patient denies nausea, vomiting, diarrhea, abdominal pain, bloody stools. Musculoskeletal: Complains of edema in his legs. Denies calf pain. Patient denies joint pain or edema. Neurovascular: Patient denies numbness, tingling, weakness in extremities. Denies headache. Endocrine: Denies polyuria and polydipsia. Hematologic: Denies easy bruising. Skin: Denies rash or itching. Past Family Social History Allergies: Coded Allergies: Latex (Verified Allergy, Severe, rash, 07/18/16) Penicillin (Verified Allergy, Severe, RASH, 07/18/16) Uncoded Allergies: PLASTIC TAPE (Allergy, Severe, RASH, 11/27/08) Past Medical History Lupus, rheumatoid arthritis, chronic interstitial lung disease, chronic kidney disease, hypertension. Denies diabetes, hyperlipidemia, and known CAD. Past Surgical History Lung biopsy. Right kidney biopsy. Reported Medications Reported Meds & Active Scripts Active Coreg (Carvedilol) 12.5 Mg Tab 12.5 Mg PO Q12HR Reported Omeprazole 40 Mg Cap 40 Mg PO DAILY K-Tab (Potassium Chloride) 10 Meq Tab 10 Meq PO DAILY Lasix (Furosemide) 40 Mg Tab 40 Mg PO DAILY Gabapentin 300 Mg Cap 300 Mg PO TID Trazodone (Trazodone HCl) 50 Mg Tab 50-100 Mg PO HS PRN Prednisone 20 Mg Tab 20 Mg PO DAILY Clonazepam 0.5 Mg Tab 0.5 Mg PO DAILY Norvasc (Amlodipine Besylate) 5 Mg Tab 5 Mg PO DAILY [place] (Hydrocodone-Acetaminophen) 10-325 Mg Tab 1 Tab PO Q6H PRN Plaquenil (Hydroxychloroquine Sulfate) 200 Mg Tab 300 Mg PO DAILY Take with food Active Ordered Medications Current Medications Medications (Trade) Dose Ordered Sig/Matt Route Start Time Stop Time Status Last Admin (NS Flush) 2 ml UNSCH PRN IV FLUSH 09/10/16 21:00 (NS Flush) 2 ml BID IV FLUSH 09/10/16 21:00 09/11/16 09:00 ([place] 7.5-325 Mg) 1 tab Q4H PRN PO 09/10/16 21:00 09/11/16 08:59 (Zofran Inj) 4 mg Q6H PRN IV 09/10/16 21:00 (Morphine Inj) 2 mg Q4H PRN IV PUSH 09/11/16 07:30 Family History Denies family history of CAD. Social History Patient does not smoke, drink alcohol, or use illicit drugs. Physical Exam Vital Signs Vital Signs Date Time Temp Pulse Resp B/P Pulse Ox O2 Delivery O2 Flow Rate FiO2 09/11/16 07:58 96 21 09/11/16 07:32 98.1 83 14 138/91 94 09/11/16 04:00 97.5 81 20 117/78 98 09/11/16 00:52 80 09/11/16 00:52 80 09/10/16 22:53 97.0 88 18 132/85 97 09/10/16 21:48 98 09/10/16 21:26 79 127/88 97 Room Air 09/10/16 18:56 90 18 133/89 97 09/10/16 16:44 18 98 Room Air 09/10/16 16:41 Room Air 09/10/16 16:41 90 18 129/85 98 Room Air 09/10/16 15:42 97.8 84 16 149/84 98 Physical Exam GENERAL: This is a well-nourished, well-developed patient, in no apparent distress. Patient speaks in clear complete sentences. Patient is pleasant. HEENT: Head is atraumatic and normocephalic. Neck is supple without lymphadenopathy and trachea is midline. No JVD or carotid bruits. CARDIOVASCULAR: Regular rate and rhythm without murmurs, gallops, or rubs. RESPIRATORY: There are scattered rhonchi. Breath sounds equal bilaterally. No wheezes, rales. Chest wall is tender. No use of accessory muscles. GASTROINTESTINAL: Abdomen is nontender, nondistended. Abdomen soft. No obvious pulsatile mass or bruit. No CVA tenderness. Strong femoral pulses bilaterally. Normal bowel sounds in all quadrants. MUSCULOSKELETAL: Patient is moving upper and lower extremities freely. No calf tenderness or edema, no Homans sign. Strong pulses in upper and lower extremities. NEUROLOGICAL: Patient is alert and oriented. Cranial nerves 2-12 are grossly intact. No focal deficits and speech is clear. SKIN: No rash and turgor is normal. Laboratory Laboratory Tests Test 09/10/16 09/10/16 09/10/16 17:00 21:10 23:01 White Blood Count 11.2 Red Blood Count 4.62 Hemoglobin 12.8 Hematocrit 38.4 Mean Corpuscular Volume 83.2 Mean Corpuscular Hemoglobin 27.8 Mean Corpuscular Hemoglobin 33.4 Concent Red Cell Distribution Width 13.9 Platelet Count 256 Mean Platelet Volume 8.4 Neutrophils (%) (Auto) 84.5 Lymphocytes (%) (Auto) 10.9 Monocytes (%) (Auto) 3.5 Eosinophils (%) (Auto) 1.0 Basophils (%) (Auto) 0.1 Neutrophils # (Auto) 9.5 Lymphocytes # (Auto) 1.2 Monocytes # (Auto) 0.4 Eosinophils # (Auto) 0.1 Basophils # (Auto) 0.0 CBC Comment DIFF FINAL Differential Comment Prothrombin Time 9.7 Prothromb Time International 0.9 Ratio Activated Partial 24.3 Thromboplast Time Sodium Level 140 Potassium Level 4.2 Chloride Level 103 Carbon Dioxide Level 28.4 Anion Gap 9 Blood Urea Nitrogen 20 Creatinine 1.75 Estimat Glomerular Filtration 47 Rate Random Glucose 100 Calcium Level 9.4 Total Bilirubin 0.1 Aspartate Amino Transf 28 (AST/SGOT) Alanine Aminotransferase 27 (ALT/SGPT) Alkaline Phosphatase 99 Troponin I LESS THAN 0.02 LESS THAN 0.02 LESS THAN 0.02 B-Type Natriuretic Peptide 100 Total Protein 7.7 Albumin 3.3 Total Creatine Kinase 45 45 Result Diagram: 09/10/16 1700 09/10/16 1700 Imaging Last [address] Angiography 09/10/16 1653 Signed Impressions: Service Date/Time: Saturday, September 10, 2016 19:46 - CONCLUSION: 1. No evidence for pulmonary embolism. 2. 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 Leon Díaz MD Chest X-Ray 09/10/16 1636 Signed Impressions: Service Date/Time: Saturday, September 10, 2016 16:48 - CONCLUSION: Chronic interstitial disease. No evidence of pleural effusion or focal nodule. Rik Sheehan MD Lower Extremity Ultrasound 09/10/16 0000 Signed Impressions: Service Date/Time: Saturday, September 10, 2016 18:00 - CONCLUSION: 1. No DVT in either lower extremity. 2. Small lymph nodes in the groin bilaterally. Leon Díaz MD Course EKGs have sinus rhythm without significant ST segment depressions or elevations. Assessment and Plan Assessment and Plan * Chest pain: Patient has had serial cardiac enzymes and EKGs for ruling out purposes. He has been seen by Dr. Guillen cardiology in the chest pain center and will undergo a Lexiscan. He'll be discharged home if the stress test is nonischemic with instructions to follow-up with a local mallet cutter. * Interstitial lung disease: He has had this diagnosis since age 4. He'll be given a prescription of an albuterol inhaler. He needs to follow-up with a air export logistics manager. * Chronic kidney disease: Patient should follow-up with his clerical order filler. * Lupus: Patient will need to follow-up with air export logistics manager. * Rheumatoid arthritis: Follow-up with air export logistics manager. * Hypertension: Continue current medication. Patient is stable this time. He is agreeable to this plan. Norman Wagoner Sep 11, 2016 09:29
[2016-09-11] MEDS ORDERED: REGADENOSON INJ 0.4 MG/5 ML SYR ONE (10:57)
[2016-09-11] MEDS ORDERED: ALUMINUM/MAGNESIUM/SIMETH 30 ML CUP PO ONE (12:45)
--- NOTE | 2016-09-11 13:00 | RADRPT ---
EXAM DATE/TIME: 09/11/2016 10:06 [facility] COMPARISON: No previous studies available for comparison. INDICATIONS : Chest pain with dyspnea. Angina. DOSE: 25.6 mCi Tc99m Myoview at stress. 8.7 mCi Tc99m Myoview at rest. 0.4 mg Lexiscan STRESS SYMPTOMS: Nausea and slight chest pressure. EJECTION FRACTION: 58% MEDICAL HISTORY : Renal insufficiency. Rheumatoid arthritis. Hypertension. SURGICAL HISTORY : Rt kidney biposy ENCOUNTER: Initial ACUITY: 1 day PAIN SCALE: 0/10 LOCATION: chest TECHNIQUE: The patient underwent pharmacologic stress with infusion of prescribed dose. Continuous ECG tracing was monitored during stress. Gated SPECT imaging was performed after stress and conventional SPECT i maging was performed at rest. The examination was performed on a SPECT/CT scanner, both attenuation and non-corrected datasets were reviewed. FINDINGS: DISTRIBUTION: The maximum perfused segment at stress is in the inferior wall. PERFUSION STUDY: The pattern of perfusion at stress is within normal limits. GATED STUDY: There is intact wall motion and thickening without hypokinetic or dyskinetic segments. CONCLUSION: No reversible perfusion defect to suggest stress-induced myocardial ischemia identified. RISK CATEGORY: Low (<1% Annual Mortality Rate) Nirmal Kaur MD on September 11, 2016 at 12:57 Board Certified Radiologist. This report was verified electronically.
[2016-09-11] MEDS ORDERED: amLODIPine BESYLATE 5 MG TAB PO SCH (13:30)
[2016-09-11] MEDS ORDERED: PANTOPRAZOLE SOD 40 MG DELAYED RELEASE TAB PO SCH (13:30)
[2016-09-11] MEDS ORDERED: ALBUAER3 INH (13:32)
--- NOTE | 2016-09-11 13:35 | HHI.DCPOC ---
Discharge Care Plan Diagnosis: (1) Chest pain (2) HTN (hypertension) (3) CKD (chronic kidney disease), stage III (4) Interstitial lung disease Goals to Promote Your Health * To prevent worsening of your condition and complications * To maintain your health at the optimal level Directions to Meet Your Goals Take your medications as prescribed Follow your dietary instruction Follow activity as directed Keep your appointments as scheduled Take your immunizations and boosters as scheduled If your symptoms worsen call your PCP, if no PCP go to Urgent Care Center or Emergency Room Smoking is Dangerous to Your Health. Avoid second hand smoke Call the 24-hour hour crisis hotline for domestic abuse at [facility] Wagoner Sep 11, 2016 13:35
--- NOTE | 2016-09-11 17:19 | EKG ---
Date Performed: 09/10/2016 Time Performed: 21:03:58 PTAGE: 26 years EKG: Sinus rhythm POSSIBLE LEFT ATRIAL ENLARGEMENT NONSPECIFIC T-WAVE ABNORMALITY BORDERLINE ECG Since PREVIOUS TRACING , no significant change noted PREVIOUS TRACIN07/18/2016 10.57 DOCTOR: Leola Guillen Interpretating Date/Time 09/11/2016 17:17:36
--- NOTE | 2016-09-11 17:20 | EKG ---
Date Performed: 09/10/2016 Time Performed: 23:07:10 PTAGE: 26 years EKG: Sinus rhythm POSSIBLE LEFT ATRIAL ENLARGEMENT NONSPECIFIC T-WAVE ABNORMALITY ABNORMAL ECG Since PREVIOUS TRACING , no significant change noted PREVIOUS TRACIN09/10/2016 21.03 DOCTOR: Leola Guillen Interpretating Date/Time 09/11/2016 17:18:01
--- NOTE | 2016-09-11 17:24 | TR ---
Date Performed: 09/11/2016 Time Performed: 11:01:02 DOCTOR: Leola Guillen DRUG LIST: CLINICAL HISTORY: REASON FOR TEST: REASON FOR ENDING: OBSERVATION: CONCLUSION: Lexiscan stress test was performed under standard four minute protocol. Radionuclid e was injected one minute prior to ending the test. No electrocardiographic abormalities were present to suggest ischemia. Nuclear imaging and interpretation are pending. COMMENTS:
--- NOTE | 2016-09-11 17:25 | EKG ---
Date Performed: 09/10/2016 Time Performed: 16:09:42 PTAGE: 26 years EKG: Sinus rhythm POSSIBLE LEFT ATRIAL ENLARGEMENT NONSPECIFIC T-WAVE ABNORMALITY BORDERLINE ECG Since PREVIOUS TRACING , no significant change noted DOCTOR: Leola Guillen Interpretating Date/Time 09/11/2016 17:24:37
[2016-09-11] MEDS ORDERED: GABAPENTIN 300 MG CAP PO SCH (18:00)
[2016-09-11] MEDS ORDERED: CARVEDILOL 12.5 MG TAB PO SCH (21:00)
[2016-09-12] MEDS ORDERED: POTASSIUM CHLORIDE 10 MEQ CONTROLLED RELEASE TAB PO SCH (09:00)
[2016-09-12] MEDS ORDERED: FUROSEMIDE 40 MG TAB PO SCH (09:00)
[2016-09-12] MEDS ORDERED: predniSONE 20 MG TAB PO SCH (09:00)
== END 2016-09-11 14:39 | disposition home or self-care (01) ==
LOC: NEPC 15:41 → NEDA 20:52 → NEPHCDU 22:21
PROVIDERS: ADMIT Internal Medicine Interventional Cardiology; ATTEND Internal Medicine Interventional Cardiology
DX: R07.89 Other chest pain (principal); I12.9 Hypertensive chronic kidney disease with stage 1 through stage 4 chronic kidney disease, or unspecified chronic kidney disease; N18.2 Chronic kidney disease, stage 2 (mild); M32.9 Systemic lupus erythematosus, unspecified; M08.00 Unspecified juvenile rheumatoid arthritis of unspecified site; J84.9 Interstitial pulmonary disease, unspecified; J45.909 Unspecified asthma, uncomplicated; F41.9 Anxiety disorder, unspecified; F32.9 Major depressive disorder, single episode, unspecified; K21.9 Gastro-esophageal reflux disease without esophagitis; R60.0 Localized edema; Z88.0 Allergy status to penicillin; Z91.040 Latex allergy status; Z91.048 Other nonmedicinal substance allergy status
CPT/HCPCS: 71010; 71275; 78452; 80053; 82550; 83880; 84484; 85025; 85610; 85730; 93005; 93017; 93970; 94664; 96374; 96375; 99285; A9502; G0378; J2270; J2405; J2785; Q9967

== ENCOUNTER 2016-11-11 12:07 | Emergency (ER) | payer MEDICAID ==
[~2016-11-11] VITALS: Ht 165.1 cm; Wt 65.0 kg
[~2016-11-11 12:07] MED LIST changes: +ALBUAER3 INH; +CLON0.5T PO; +FURO1TAB60 PO; +GABA300C5 PO; +K-TA10TA PO; -LORA-392 PO; +OMEP40CA2 PO; -TEMA30CA PO; +TRAZ50TA12 PO
[2016-11-11 12:09] VITALS: BP 175/99; PULSE 106; RESP 20; TEMP 98.8; O2SAT 96
--- NOTE | 2016-11-11 12:16 | PD ---
Physical Exam Date Seen by Provider: Nov 11, 2016 Time Seen by Provider: 12:11 Narrative 26 y/o male with Hx Rheumatoid Arthritis, SLE, and Interstitial Lung Disease presents with worsening chest pain and pressure radiating into his back since last night. Has not seen local glass blower helper or corner trimmer operator yet. Has appointment in March. Has Local PCP. Vital signs reviewed. Patient stable. Awaiting Bed placement. Data Data Last Documented VS Vital Signs Date Time Temp Pulse Resp B/P Pulse Ox O2 Delivery O2 Flow Rate FiO2 11/11/16 12:09 98.8 106 20 175/99 96 MDM Medical Record Reviewed: Yes Supervised Visit with KARIN: Yes Condition: Stable Rigoberto Mar Nov 11, 2016 12:16
--- NOTE | 2016-11-11 14:41 | RADRPT ---
EXAM DATE/TIME: 11/11/2016 14:05 [facility] COMPARISON: CHEST PA & LAT, May 06, 2016, 14:36. INDICATIONS : Chest pain, shortness of breath. MEDICAL HISTORY : Venous insufficiency. Intersticial lung disease. SURGICAL HISTORY : Right lung biopsy. ENCOUNTER: Initial ACUITY: 2 days PAIN SCORE: 8/10 LOCATION: Bilateral posterior chest. FINDINGS: Course interstitial changes with hyperinflation are present in both lungs stable in interval. The hea rt and pulmonary vascularity are normal. The portion of the bony skeleton visualized is unremarkable. CONCLUSION: Hyperinflation with coarse interstitial changes, stable in interval. Vickey Kaur MD FACR on November 11, 2016 at 14:39 Board Certified Radiologist. This report was verified electronically.
--- NOTE | 2016-11-11 15:49 | PD ---
HPI Chief Complaint: Chest Pain Time Seen by Provider: 15:37 Travel History International Travel<30 days: No Contact w/Intl Traveler<30days: No Traveled to known affect area: No History of Present Illness HPI 26-year-old male complains of chest pain. Patient states that the chest pain started last night. Patient states that the chest pain alternating between sharp pain and aching pain substernally with radiation to the back. Patient denies any fever chills. Patient denies any coughing congestion. Patient states the pain is worse with deep breathing. Patient has history of interstitial lung disease. Patient has history of lupus and rheumatoid arthritis. Patient denies any history of cardiac disease. Patient has history hypertension. Patient denies history diabetes or hyperlipidemia. Patient is a nonsmoker. PFSH Past Medical History Arthritis: Yes (ra(whole body)) Asthma: Yes ([id number]) Autoimmune Disease: Yes (SLE) Blood Disorders: No Anxiety: Yes Depression: Yes Heart Rhythm Problems: No Cardiac Catheterization: No Cardiovascular Problems: Yes (HTN) High Cholesterol: No Chemotherapy: Yes (02/2015 3months kidney and RA issues) Chest Pain: Yes (with breathing dx process with bilat lung) Congestive Heart Failure: No COPD: No Cerebrovascular Accident: No Diabetes: No Diminished Hearing: No Endocrine: No Gastrointestinal Disorders: Yes (acid reflux) GERD: Yes Glaucoma: No Genitourinary: Yes Headaches: No Hepatitis: No Hiatal Hernia: No Heparin Induced Thrombocytopen: No Hypertension: Yes (htn stage II) Immune Disorder: Yes (SYSTEMIC LUPUS) Implanted Vascular Access Dvce: No Kidney Stones: Yes Musculoskeletal: Yes (arthritis) Psychiatric: Yes Reproductive: No Respiratory: Yes (INTERSTICIAL LUNG DISEASE ) Immunizations Current: Yes Migraines: No Myocardial Infarction: No Radiation Therapy: No Renal Failure: No Seizures: No Sickle Cell Disease: No Sleep Apnea: No Thyroid Disease: No Past Surgical History Abdominal Surgery: No AICD: No Appendectomy: No Cardiac Surgery: No Coronary Artery Bypass Graft: No Ear Surgery: No Endocrine Surgery: No Eye Surgery: No Genitourinary Surgery: Yes (kidney R biopsy 02/02/15) Gynecologic Surgery: No Hysterectomy: Yes (HTN) Joint Replacement: No Neurologic Surgery: No Oral Surgery: No Pacemaker: No Thoracic Surgery: Yes (right lung) Other Surgery: Yes (LUNG BIOPSY AT AGE 4 and jt fusion lt wrist left foot) Social History Alcohol Use: No Tobacco Use: No Substance Use: Yes (marijuana OCC) Allergies-Medications (Allergen,Severity, Reaction): Coded Allergies: Latex (Verified Allergy, Severe, rash, 11/11/16) Penicillin (Verified Allergy, Severe, RASH, 11/11/16) Uncoded Allergies: PLASTIC TAPE (Allergy, Severe, RASH, 11/27/08) Reported Meds & Prescriptions Reported Meds & Active Scripts Active Proair Hfa 8.5 GM Inh (Albuterol Sulfate) 90 Mcg/Act Aer 2 Puff INH Q4-6H PRN 108 mcg/actuation Coreg (Carvedilol) 12.5 Mg Tab 12.5 Mg PO Q12HR Reported Omeprazole 40 Mg Cap 40 Mg PO DAILY K-Tab (Potassium Chloride) 10 Meq Tab 10 Meq PO DAILY PRN Lasix (Furosemide) 40 Mg Tab 40 Mg PO DAILY PRN Gabapentin 300 Mg Cap 300 Mg PO TID Trazodone (Trazodone HCl) 50 Mg Tab 50-100 Mg PO HS PRN Prednisone 20 Mg Tab 60 Mg PO DAILY Clonazepam 0.5 Mg Tab 0.5 Mg PO DAILY Norvasc (Amlodipine Besylate) 5 Mg Tab 5 Mg PO DAILY [place] (Hydrocodone-Acetaminophen) 10-325 Mg Tab 1 Tab PO Q6H PRN Plaquenil (Hydroxychloroquine Sulfate) 200 Mg Tab 300 Mg PO DAILY Take with food Review of Systems General / Constitutional: No: Fever Eyes: No: Visual changes HENT: No: Headaches Cardiovascular: Positive: Chest Pain or Discomfort Respiratory: No: Shortness of Breath Gastrointestinal: No: Abdominal Pain Genitourinary: No: Dysuria Musculoskeletal: No: Pain Skin: No Rash Neurologic: No: Weakness Psychiatric: No: Depression Endocrine: No: Polydipsia Hematologic/Lymphatic: No: Easy Bruising Physical Exam Narrative GENERAL: Well-nourished, well-developed patient. SKIN: Focused skin assessment warm/dry. HEAD: Normocephalic. EYES: No scleral icterus. No injection or drainage. NECK: Supple, trachea midline. No JVD or lymphadenopathy. CARDIOVASCULAR: Regular rate and rhythm without murmurs, gallops, or rubs. RESPIRATORY: Breath sounds equal bilaterally. No accessory muscle use. GASTROINTESTINAL: Abdomen soft, non-tender, nondistended. MUSCULOSKELETAL: No cyanosis, or edema. BACK: Nontender without obvious deformity. No CVA tenderness. Neurologic exam normal. Data Data Last Documented VS Vital Signs Date Time Temp Pulse Resp B/P Pulse Ox O2 Delivery O2 Flow Rate FiO2 11/11/16 12:09 98.8 106 20 175/99 96 Orders Electrocardiogram (11/11/16 12:15) Chest, Pa & Lat (11/11/16 ) Complete Blood Count With Diff (11/11/16 15:37) Comprehensive Metabolic Panel (11/11/16 15:37) Creatine Kinase (Cpk) (11/11/16 15:37) Troponin I (11/11/16 15:37) Prothrombin Time / Inr (Pt) (11/11/16 15:37) Act Partial Throm Time (Ptt) (11/11/16 15:37) Iv Access Insert/Monitor (11/11/16 15:37) Ecg Monitoring (11/11/16 15:37) Oximetry (11/11/16 15:37) CKMB (11/11/16 15:40) CKMB% (11/11/16 15:40) Labs Laboratory Tests Test 11/11/16 11/11/16 15:00 15:40 White Blood Count 3.5 TH/MM3 Red Blood Count 5.20 MIL/MM3 Hemoglobin 14.2 GM/DL Hematocrit 42.9 % Mean Corpuscular Volume 82.6 FL Mean Corpuscular Hemoglobin 27.4 PG Mean Corpuscular Hemoglobin 33.1 % Concent Red Cell Distribution Width 14.3 % Platelet Count 296 TH/MM3 Mean Platelet Volume 7.8 FL Neutrophils (%) (Auto) 67.3 % Lymphocytes (%) (Auto) 26.5 % Monocytes (%) (Auto) 3.5 % Eosinophils (%) (Auto) 2.3 % Basophils (%) (Auto) 0.4 % Neutrophils # (Auto) 2.3 TH/MM3 Lymphocytes # (Auto) 0.9 TH/MM3 Monocytes # (Auto) 0.1 TH/MM3 Eosinophils # (Auto) 0.1 TH/MM3 Basophils # (Auto) 0.0 TH/MM3 CBC Comment DIFF FINAL Differential Comment Prothrombin Time 11.0 SEC Prothromb Time International 1.0 RATIO Ratio Activated Partial 29.0 SEC Thromboplast Time Sodium Level 140 MEQ/L Potassium Level 3.6 MEQ/L Chloride Level 108 MEQ/L Carbon Dioxide Level 22.4 MEQ/L Anion Gap 10 MEQ/L Blood Urea Nitrogen 11 MG/DL Creatinine 1.33 MG/DL Estimat Glomerular Filtration 64 ML/MIN Rate Random Glucose 85 MG/DL Calcium Level 9.2 MG/DL Total Bilirubin 0.2 MG/DL Aspartate Amino Transf 37 U/L (AST/SGOT) Alanine Aminotransferase 19 U/L (ALT/SGPT) Alkaline Phosphatase 70 U/L Total Creatine Kinase 570 U/L Creatine Kinase MB LESS THAN 0.5 NG/ML Creatine Kinase MB % 0.1 % Troponin I LESS THAN 0.02 NG/ML Total Protein 7.9 GM/DL Albumin 3.6 GM/DL MDM Medical Decision Making Medical Screen Exam Complete: Yes Emergency Medical Condition: Yes Interpretation(s) 1547 PM. EKG shows sinus rhythm nonspecific ST-T wave. Mild sinus tachycardia at rate 104. Last Impressions Chest X-Ray 11/11/16 0000 Signed Impressions: Service Date/Time: Friday, November 11, 2016 14:05 - CONCLUSION: Hyperinflation with coarse interstitial changes, stable in interval. Vickey Kaur MD FACR 1819 p.m. CBC within normal limit. CMP within normal limit. Creatinine 1.33. Cardiac enzymes are normal. Differential Diagnosis Differential diagnosis including musculoskeletal, pleurisy, pericarditis, angina , NV, PE, pneumothorax. Narrative Course 26-year-old male with chest pain. History of interstitial lung disease, lupus and rheumatoid arthritis. Diagnosis Primary Impression: Atypical chest pain Patient Instructions: General Instructions Additional Instructions: Take medication as needed for pain. Follow-up with personal physician. Return if worse. Return immediately if increasing chest pain or shortness of breath. Med/Other Pt SpecificInfo: Prescription(s) given Scripts Hydrocodone-Acetaminophen ([place])5-325 mg Tab1 Tab PO Q6H PRN (PAIN) #30 TAB Prov:Tristan Rodrigues MD 11/11/16 Disposition: 01 DISCHARGE HOME Condition: Stable Tristan Rodrigues MD Nov 11, 2016 15:49
[2016-11-11 16:04] LABS: AUTOMATED NEUTROPHIL # 2.3 TH/MM3 (1.8-7.7); BASOPHIL % 0.4 % (0.0-2.0); EOSINOPHIL # 0.1 TH/MM3 (0-0.4); EOSINOPHIL % 2.3 % (0.0-4.0); HEMATOCRIT 42.9 % (39.0-51.0); HEMO FLAGS DIFF FINAL; LYMPH % 26.5 % (9.0-44.0); LYMPHOCYTE # 0.9 TH/MM3 (1.0-4.8); MEAN CELL VOLUME 82.6 FL (80.0-100.0); MEAN CORPUSCULAR HEMOGLOBIN 27.4 PG (27.0-34.0); MEAN CORPUSCULAR HGB CONC 33.1 % (32.0-36.0); MONO % 3.5 % (0.0-8.0); NEUT % 67.3 % (16.0-70.0); PLATELET COUNT 296 TH/MM3 (150-450); RED CELL DISTRIBUTION WIDTH 14.3 % (11.6-17.2); WHITE BLOOD COUNT 3.5 TH/MM3 (4.0-11.0)
[2016-11-11 16:22] LABS: ALT (GPT) 19 U/L (12-78); ANION GAP 10 MEQ/L (5-15); AST (GOT) 37 U/L (15-37); BICARBONATE 22.4 MEQ/L (21.0-32.0); BLOOD UREA NITROGEN 11 MG/DL (7-18); CHLORIDE 108 MEQ/L (98-107); GLOMERULAR FILTRATION RATE 64 ML/MIN (>89); POTASSIUM 3.6 MEQ/L (3.5-5.1); SODIUM (NA) 140 MEQ/L (136-145)
[2016-11-11 16:26] LABS: ALKALINE PHOSPHATASE 70 U/L (45-117); CREATINE KINASE 570 U/L (39-308); TOTAL BILIRUBIN ADULT 0.2 MG/DL (0.2-1.0)
[2016-11-11 16:38] LABS: CKMB LESS THAN 0.5 NG/ML (0.5-3.6)
[2016-11-11] MEDS ORDERED: NORC5TAB PO (18:24)
[2016-11-11 18:35] VITALS: BP 143/93
--- NOTE | 2016-11-12 15:52 | EKG ---
Date Performed: 11/11/2016 Time Performed: 12:18:28 PTAGE: 26 years EKG: SINUS TACHYCARDIA POSSIBLE RIGHT ATRIAL ENLARGEMENT NONSPECIFIC T-WAVE ABNORMALITY ABNORMAL RHYTHM ECG PREVIOUS TRACING : 09/10/2016 23.07 DOCTOR: Romulo Luis Interpretating Date/Time 11/12/2016 15:45:42
== END 2016-11-11 18:38 | disposition home or self-care (01) ==
LOC: NEPE 12:07
DX: R07.89 Other chest pain (principal); M54.9 Dorsalgia, unspecified; R94.31 Abnormal electrocardiogram [ECG] [EKG]; R00.0 Tachycardia, unspecified; J84.9 Interstitial pulmonary disease, unspecified; M32.9 Systemic lupus erythematosus, unspecified; M06.9 Rheumatoid arthritis, unspecified; I10 Essential (primary) hypertension; K21.9 Gastro-esophageal reflux disease without esophagitis
CPT/HCPCS: 71020; 80053; 82550; 82552; 84484; 85025; 85610; 85730; 93005; 99285

== ENCOUNTER 2016-12-02 19:38 | Emergency (ER) | payer MEDICAID ==
[~2016-12-02] VITALS: Ht 165.1 cm; Wt 65.0 kg
[~2016-12-02 19:38] MED LIST changes: +NORC5TAB PO
[2016-12-02] MEDS ORDERED: IOHEXOL 350 MG/ML 10 ML VIAL (for RAD DIAG) IVCONTRAST ONE (19:39)
[2016-12-02 19:41] VITALS: BP 170/100; PULSE 102; RESP 18; TEMP 99.2; O2SAT 98
[2016-12-02] MEDS ORDERED: SODIUM CHLOR 0.9% 1000 ML INJ 1,000 ML IV SCH (22:04)
[2016-12-02] MEDS ORDERED: ONDANSETRON HCL 4 MG/2 ML VIAL IVP ONE (22:15)
[2016-12-02] MEDS ORDERED: MORPHINE SULFATE 4 MG/ML INJ IV PUSH ONE (22:15)
--- NOTE | 2016-12-02 22:30 | PD ---
HPI Chief Complaint: Back/ Neck Pain or Injury Time Seen by Provider: 21:58 Travel History International Travel<30 days: No Contact w/Intl Traveler<30days: No Traveled to known affect area: No History of Present Illness HPI 26-year-old male that presents to the ED for evaluation of bilateral back pain for the past 2 days. Per patient he has a history of lupus as well as rheumatoid arthritis. Patient suffers from pains from this disease is . Per patient he is SLE is affecting his kidneys and he was told that he has early stages of kidney disease. Patient also has a history of kidney stones. Per patient the pain started abruptly yesterday. Per patient has gotten more severe today. He denies any urinary or bowel movement issues. He denies any nausea or vomiting but states that he feels and I don't neck because of the pain. Per patient the pain currently is 10 out of 10. He denies any injuries or falls. No fevers chills or sweats. No sick contacts. He has not had any surgeries recently. He states that the pain stays mainly on the left side but also on the right. Does not radiate. Does not go to the abdomen. Patient and family concerned that his kidneys might be the cause of the symptoms but he is unsure. PFSH Past Medical History Arthritis: Yes (ra(whole body)) Asthma: Yes (INTERSTITIAL LUNG DISEASE) Autoimmune Disease: Yes (Systemic Lupus, RA) Anxiety: Yes Depression: Yes Cardiovascular Problems: Yes (HTN) Chemotherapy: Yes (02/2015 3months kidney and RA issues) Chest Pain: Yes (with breathing dx process with bilat lung) Diminished Hearing: No Gastrointestinal Disorders: Yes (acid reflux) GERD: Yes Genitourinary: Yes Hypertension: Yes Immune Disorder: Yes (SYSTEMIC LUPUS) Kidney Stones: Yes Musculoskeletal: Yes (arthritis) Psychiatric: Yes Respiratory: Yes (INTERSTICIAL LUNG DISEASE ) Immunizations Current: Yes Past Surgical History Surgical History: No Previous Surgery Endocrine Surgery: No Genitourinary Surgery: Yes (kidney R biopsy 02/02/15) Hysterectomy: Yes (HTN) Thoracic Surgery: Yes (right lung) Other Surgery: Yes (LUNG BIOPSY 1994, CLUB FOOT, Kidney biopsy (SLE) 2014) Social History Alcohol Use: No Tobacco Use: No Substance Use: No Allergies-Medications (Allergen,Severity, Reaction): Coded Allergies: latex (Unverified Allergy, Severe, rash, 12/02/16) penicillin G (Unverified Allergy, Severe, RASH, 12/02/16) Uncoded Allergies: PLASTIC TAPE (Allergy, Severe, RASH, 11/27/08) Reported Meds & Prescriptions Reported Meds & Active Scripts Active [place] (Hydrocodone-Acetaminophen) 5-325 mg Tab 1 Tab PO Q6H PRN Proair Hfa 8.5 GM Inh (Albuterol Sulfate) 90 Mcg/Act Aer 2 Puff INH Q4-6H PRN 108 mcg/actuation Coreg (Carvedilol) 12.5 Mg Tab 12.5 Mg PO Q12HR Reported Omeprazole 40 Mg Cap 40 Mg PO DAILY K-Tab (Potassium Chloride) 10 Meq Tab 10 Meq PO DAILY PRN Lasix (Furosemide) 40 Mg Tab 40 Mg PO DAILY PRN Gabapentin 300 Mg Cap 300 Mg PO TID Trazodone (Trazodone HCl) 50 Mg Tab 50-100 Mg PO HS PRN Prednisone 20 Mg Tab 60 Mg PO DAILY Clonazepam 0.5 Mg Tab 0.5 Mg PO DAILY Norvasc (Amlodipine Besylate) 5 Mg Tab 5 Mg PO DAILY [place] (Hydrocodone-Acetaminophen) 10-325 Mg Tab 1 Tab PO Q6H PRN Plaquenil (Hydroxychloroquine Sulfate) 200 Mg Tab 300 Mg PO DAILY Take with food Review of Systems Except as stated in HPI: all other systems reviewed are Neg Physical Exam Narrative GENERAL: SKIN: Warm and dry. HEAD: Atraumatic. Normocephalic. EYES: Pupils equal and round 4 mm reactive to light and accommodation. No scleral icterus. No injection or drainage. ENT: No nasal bleeding or discharge. Mucous membranes pink and moist. Tongue is midline. No uvula deviation. NECK: Trachea midline. No JVD. CARDIOVASCULAR: Regular rate and rhythm. No murmurs, S3, S4. RESPIRATORY: No accessory muscle use. Clear to auscultation. Breath sounds equal bilaterally. GASTROINTESTINAL: Abdomen soft, non-tender, nondistended. Hepatic and splenic margins not palpable. MUSCULOSKELETAL: Extremities without clubbing, cyanosis, or edema. No obvious deformities. Full range of motion of the upper and lower extremities bilaterally. 2+ pulses bilaterally. NEUROLOGICAL: Awake and alert. No obvious cranial nerve deficits. Motor grossly within normal limits. Five out of 5 muscle strength in the arms and legs. Normal speech. PSYCHIATRIC: Appropriate mood and affect; insight and judgment normal. Data Data Last Documented VS Vital Signs Date Time Temp Pulse Resp B/P (MAP) Pulse Ox O2 Delivery O2 Flow Rate FiO2 12/02/16 19:41 99.2 102 18 170/100 (123) 98 Room Air Orders Orders Complete Blood Count With Diff (12/02/16 22:04) Comprehensive Metabolic Panel (12/02/16 22:04) Lipase (12/02/16 22:04) Lactic Acid (12/02/16 22:04) Urinalysis - C+S If Indicated (12/02/16 22:04) Ct Abd/Pel W Iv Contrast(Rout) (12/02/16 22:04) Iv Access Insert/Monitor (12/02/16 22:04) Ecg Monitoring (12/02/16 22:04) Morphine Inj (Morphine Inj) (12/02/16 22:15) Ondansetron Inj (Zofran Inj) (12/02/16 22:15) Sodium Chlor 0.9% 1000 Ml Inj (Ns 1000 M (12/02/16 22:04) Chest, Single Ap (12/02/16 22:04) MDM Medical Decision Making Medical Screen Exam Complete: Yes Emergency Medical Condition: Yes Medical Record Reviewed: Yes Differential Diagnosis Kidney injury versus chronic kidney disease versus kidney stone versus back pain versus are a versus acute on chronic pain versus conifer is versus UTI versus cystitis Narrative Course 26-year-old male that presents to the ED for evaluation of back pain. Patient was properly examined and was found to have signs and symptoms consistent appears to be possible kidney disease. Unclear etiology at this time. Patient does have risk factors for kidney stones, kidney disease, infection as well as musculoskeletal symptoms. This time I recommend labs and imaging. Patient is agreeable with this plan. Patient was given IV fluids and pain medication. Case was signed out to my attending pending testing and dispo. Shane Sams Dec 02, 2016 22:30
[2016-12-02 22:38] LABS: BASOPHIL % 0.6 % (0.0-2.0); EOSINOPHIL # 0.1 TH/MM3 (0-0.4); EOSINOPHIL % 2.4 % (0.0-4.0); HEMATOCRIT 45.2 % (39.0-51.0); HEMO FLAGS DIFF FINAL; LYMPH % 30.9 % (9.0-44.0); LYMPHOCYTE # 1.5 TH/MM3 (1.0-4.8); MEAN CELL VOLUME 82.1 FL (80.0-100.0); MEAN CORPUSCULAR HEMOGLOBIN 27.2 PG (27.0-34.0); MEAN CORPUSCULAR HGB CONC 33.1 % (32.0-36.0); MONO % 3.9 % (0.0-8.0); NEUT % 62.2 % (16.0-70.0); PLATELET COUNT 369 TH/MM3 (150-450); RED CELL DISTRIBUTION WIDTH 14.5 % (11.6-17.2); WHITE BLOOD COUNT 4.8 TH/MM3 (4.0-11.0)
[2016-12-02 22:54] LABS: ALKALINE PHOSPHATASE 78 U/L (45-117); TOTAL BILIRUBIN ADULT 0.5 MG/DL (0.2-1.0)
[2016-12-02 22:56] LABS: ALT (GPT) 14 U/L (12-78); ANION GAP 11 MEQ/L (5-15); AST (GOT) 40 U/L (15-37); BLOOD UREA NITROGEN 11 MG/DL (7-18); CHLORIDE 106 MEQ/L (98-107); GLOMERULAR FILTRATION RATE 58 ML/MIN (>89); POTASSIUM 4.4 MEQ/L (3.5-5.1); SODIUM (NA) 140 MEQ/L (136-145)
--- NOTE | 2016-12-02 23:11 | PD ---
Data Data Last Documented VS Vital Signs Date Time Temp Pulse Resp B/P (MAP) Pulse Ox O2 Delivery O2 Flow Rate FiO2 12/02/16 19:41 99.2 102 18 170/100 (123) 98 Room Air Orders Orders Complete Blood Count With Diff (12/02/16 22:04) Comprehensive Metabolic Panel (12/02/16 22:04) Lipase (12/02/16 22:04) Lactic Acid (12/02/16 22:04) Urinalysis - C+S If Indicated (12/02/16 22:04) Ct Abd/Pel W Iv Contrast(Rout) (12/02/16 22:04) Iv Access Insert/Monitor (12/02/16 22:04) Ecg Monitoring (12/02/16 22:04) Morphine Inj (Morphine Inj) (12/02/16 22:15) Ondansetron Inj (Zofran Inj) (12/02/16 22:15) Sodium Chlor 0.9% 1000 Ml Inj (Ns 1000 M (12/02/16 22:04) Chest, Single Ap (12/02/16 22:04) Iohexol 350 Inj (Omnipaque 350 Inj) (12/02/16 19:39) Pantoprazole Inj (Protonix Inj) (12/03/16 00:15) Labs Laboratory Tests Test 12/02/16 22:20 White Blood Count 4.8 TH/MM3 Red Blood Count 5.50 MIL/MM3 Hemoglobin 15.0 GM/DL Hematocrit 45.2 % Mean Corpuscular Volume 82.1 FL Mean Corpuscular Hemoglobin 27.2 PG Mean Corpuscular Hemoglobin Concent 33.1 % Red Cell Distribution Width 14.5 % Platelet Count 369 TH/MM3 Mean Platelet Volume 7.3 FL Neutrophils (%) (Auto) 62.2 % Lymphocytes (%) (Auto) 30.9 % Monocytes (%) (Auto) 3.9 % Eosinophils (%) (Auto) 2.4 % Basophils (%) (Auto) 0.6 % Neutrophils # (Auto) 3.0 TH/MM3 Lymphocytes # (Auto) 1.5 TH/MM3 Monocytes # (Auto) 0.2 TH/MM3 Eosinophils # (Auto) 0.1 TH/MM3 Basophils # (Auto) 0.0 TH/MM3 CBC Comment DIFF FINAL Differential Comment Blood Urea Nitrogen 11 MG/DL Creatinine 1.45 MG/DL Random Glucose 71 MG/DL Total Protein 8.6 GM/DL Albumin 3.7 GM/DL Calcium Level 9.0 MG/DL Alkaline Phosphatase 78 U/L Aspartate Amino Transf (AST/SGOT) 40 U/L Alanine Aminotransferase (ALT/SGPT) 14 U/L Total Bilirubin 0.5 MG/DL Sodium Level 140 MEQ/L Potassium Level 4.4 MEQ/L Chloride Level 106 MEQ/L Carbon Dioxide Level 23.0 MEQ/L Anion Gap 11 MEQ/L Estimat Glomerular Filtration Rate 58 ML/MIN Lactic Acid Level 1.0 mmol/L Lipase 223 U/L [facility] Medical Record Reviewed: Yes Supervised Visit with KARIN: No Narrative Course During the course of the patients emergency department visit, the patients history, examination, and differential diagnosis were reviewed with the patient. The patient had IV access obtained and blood work sent for analysis. The patient was initially seen by Girish. Please see his complete history and physical. The patient's case was checked out to me at the conclusion of his shift. 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 Laboratory studies and imaging studies were ordered. The patient was initially provided normal saline 1 L IV fluid bolus, Zofran 4 mg IV, morphine 4 mg IV for pain. The patients laboratory studies were reviewed and remarkable for a CBC that is within normal limits. CMP is remarkable for creatinine 1.45, glucose 71, AST 40 , total protein 8.6, lipase 223, lactic acid 1.0. Radiology studies were reviewed and remarkable for a chest x-ray that shows stable chronic interstitial disease. CT scan of the abdomen and pelvis shows no acute findings C-spine the patient's back pain, however he has severe circumferential wall thickening of the distal esophagus which could represent an esophagitis. Irregular cystic areas and paraseptal emphysema and the visualized lung bases. The patient's findings were further discussed with him. He does have a long- standing history of acid reflux, heartburn problems. The patient reports that he has been on omeprazole, however it has not been helping. He was switched from Protonix to omeprazole by the patient's new nurse practitioner. He reports that as a child he did have an upper GI study done, however he has not recently seen a GI specialist or ever had endoscopy. I recommended that he follow-up with a tool drawing checker for endoscopy. I recommended that he discontinue the omeprazole and he was given a prescription for Protonix. While in the emergency department he was given Protonix 40 mg IV and was instructed to start his new prescription in 24 hours. The patient is resting comfortably and feels better, is alert and in no distress. The patients results and examination findings were discussed with the patient. The repeat examination is unremarkable and benign. The history, exam, diagnostic testing, and current condition do not suggest any significant pathology to warrant further testing, continued ED treatment, admission, or surgical evaluation at this point. The vital signs have been stable. The patient does not have uncontrollable pain, intractable vomiting, or other significant symptoms. The patient's condition is stable and appropriate for discharge. The patient will pursue further outpatient evaluation with a primary care physician or other designated or consulting physician as indicated in the discharge instructions. The patient expressed understanding and was agreeable with this plan. Diagnosis Primary Impression: Thickening of esophagus Additional Impression: Back pain Referrals: Quinton Johnston MD 3 days Fire Alarm Dispatcher Primary Care Physician Patient Instructions: Esophagitis (ED), Gastroesophageal Reflux Disease (ED), General Instructions Med/Other Pt SpecificInfo: Prescription(s) given, Med Stopped (omeprazole) Scripts Pantoprazole (Protonix) 40 Mg Tab 40 MG PO DAILY for Reflux, #30 TAB 0 Refills Prov: Soco Castellanos MD 12/03/16 Disposition: 01 DISCHARGE HOME Condition: Stable Soco Castellanos MD Dec 02, 2016 23:11
--- NOTE | 2016-12-02 23:20 | RADRPT ---
EXAM DATE/TIME: 12/02/2016 22:22 [facility] COMPARISON: CHEST SINGLE AP, September 10, 2016, 16:48. INDICATIONS : Lower back pain. MEDICAL HISTORY : Hypertension. Interstitial lung disease. SURGICAL HISTORY : Two right lung biopsies. ENCOUNTER: Initial ACUITY: 1 day PAIN SCORE: 10/10 LOCATION: Lower back. FINDINGS: The heart size is normal. There is diffuse chronic interstitial disease. The appearance is unchanged. No new alveolar consolidation is seen. No effusion is seen. CONCLUSION: Stable chronic interstitial disease. Juan C Salcedo MD on December 02, 2016 at 23:18 Board Certified Radiologist. This report was verified electronically.
--- NOTE | 2016-12-02 23:40 | RADRPT ---
EXAM DATE/TIME: 12/02/2016 23:22 [facility] COMPARISON: No previous studies available for comparison. INDICATIONS : Lower back pain today. IV CONTRAST: 95 cc Omnipaque 350 (iohexol) IV ORAL CONTRAST: No oral contrast ingested. RADIATION DOSE: 5.05 CTDIvol (mGy) MEDICAL HISTORY : Lupus. Renal calculi. Hypertension.Lung disease SURGICAL HISTORY : Right lung surgery ENCOUNTER: Initial ACUITY: 1 day PAIN SCALE: 10/10 LOCATION: low back TECHNIQUE: Volumetric scanning of the abdomen and pelvis was performed. Using automated exposure control and ad justment of the mA and/or kV according to patient size, radiation dose was kept as low as reasonably achievable to obtain optimal diagnostic quality images. DICOM format image data is available electro nically for review and comparison. FINDINGS: LOWER LUNGS: There are irregular cystic areas in the lower lung zones bilaterally with paraseptal emphysema. LIVER: Homogeneous density without lesion. There is no dilation of the biliary tree. No calcified gallston es. SPLEEN: Normal size without lesion. PANCREAS: Within normal limits. KIDNEYS: Normal in size and shape. There is no mass or hydronephrosis. There is a 3 mm nonobstructing left re nal stone. ADRENAL GLANDS: Within normal limits. VASCULAR: There is no aortic aneurysm. BOWEL/MESENTERY: The stomach, small bowel, and colon demonstrate no acute abnormality. There is no free intraperitone al air or fluid. There is severe circumferential wall thickening of the distal esophagus. ABDOMINAL WALL: Within normal limits. RETROPERITONEUM: There is no lymphadenopathy. BLADDER: No wall thickening or mass. REPRODUCTIVE: Within normal limits. INGUINAL: There is no lymphadenopathy or hernia. MUSCULOSKELETAL: No acute abnormality is identified. CONCLUSION: 1. No acute finding is identified to explain the patient's back pain. 2. Severe circumferential wall thickening of the distal esophagus. This could represent an esophagiti s. 3. Irregular cystic areas and paraseptal emphysema in the visualized lung bases. Juan C Smyth MD on December 02, 2016 at 23:34 Board Certified Radiologist. This report was verified electronically.
[2016-12-03] MEDS ORDERED: PANTOPRAZOLE SODIUM 40 MG VIAL IV PUSH ONE (00:15)
[2016-12-03] MEDS ORDERED: PROT40TA PO (00:35)
[2016-12-03 01:12] LABS: BLOOD, URINE MOD (NEG); COMMENT (UR) CULT NOT INDICATED; CULTURE IF INDICATED CULT NOT INDICATED; GLUCOSE,URINE NEG (NEG); KETONE, URINE 10 mg/dL (NEG); NITRITE,URINE NEG (NEG); URINE COLOR YELLOW (YELLW/STRAW)
== END 2016-12-03 02:01 | disposition home or self-care (01) ==
LOC: NEPC 19:38
DX: K22.8 Other specified diseases of esophagus (principal); M54.5 Low back pain; M32.9 Systemic lupus erythematosus, unspecified; M06.9 Rheumatoid arthritis, unspecified
CPT/HCPCS: 71010; 74177; 80053; 81001; 83605; 83690; 85025; 96361; 96374; 96375; 99285; C9113; J2270; J2405; J7030; Q9967

== ENCOUNTER 2016-12-12 12:39 | Emergency (ER) | payer MEDICAID ==
[~2016-12-12] VITALS: Ht 165.1 cm; Wt 70.0 kg
[~2016-12-12 12:39] MED LIST changes: -OMEP40CA2 PO; +PROT40TA PO
[2016-12-12 12:43] VITALS: BP 191/124; PULSE 87; RESP 18; TEMP 98.4; O2SAT 100
--- NOTE | 2016-12-12 12:47 | PD ---
Physical Exam Date Seen by Provider: Dec 12, 2016 Time Seen by Provider: 12:45 Narrative 26 YOWM C/O RA FLARE. USUALLY TAKES LORTAB 10. PAIN ALL OVER. 10/10 . 80MG PREDNISONE FOR THE PAST 3 DAYS VS NOTED WAITING FOR BED PLACEMENT Data Data Last Documented VS Vital Signs Date Time Temp Pulse Resp B/P (MAP) Pulse Ox O2 Delivery O2 Flow Rate FiO2 12/12/16 12:43 98.4 87 18 191/124 (146) 100 Room Air [facility] Medical Record Reviewed: No Supervised Visit with KARIN: Yes Ariel Hobbs Dec 12, 2016 12:47
[2016-12-12] MEDS ORDERED: HYDROmorphone HCL PF 1 MG/ML VIAL IM ONE ×2 (13:15→14:00)
--- NOTE | 2016-12-12 13:23 | PD ---
HPI Chief Complaint: Pain: Acute or Chronic Time Seen by Provider: 13:02 Travel History International Travel<30 days: No Contact w/Intl Traveler<30days: No Traveled to known affect area: No History of Present Illness HPI This is a 26-year-old male who presents to the emergency department with a history of rheumatoid arthritis and lupus with 2 days of severe left shoulder pain, constant, worse with moving, improved with rest associated with some back pain. He says this is similar to when his rheumatoid arthritis acts up but hasn 't acted up in a while. He is taking Lortab 10 at home but that's not helping. He takes 80 mg of prednisone a day. He denies any fevers or chills. PFSH Past Medical History Arthritis: Yes (ra(whole body)) Asthma: Yes (INTERSTITIAL LUNG DISEASE) Autoimmune Disease: Yes (Systemic Lupus, RA) Anxiety: Yes Depression: Yes Cardiovascular Problems: Yes (HTN) Chemotherapy: Yes (02/2015 3months kidney and RA issues) Chest Pain: Yes (with breathing dx process with bilat lung) Diminished Hearing: No Gastrointestinal Disorders: Yes (acid reflux) GERD: Yes Genitourinary: Yes Hypertension: Yes Immune Disorder: Yes (SYSTEMIC LUPUS) Kidney Stones: Yes Musculoskeletal: Yes (arthritis) Psychiatric: Yes Respiratory: Yes (INTERSTICIAL LUNG DISEASE ) Immunizations Current: Yes Tetanus Vaccination: < 5 Years Past Surgical History AICD: No Endocrine Surgery: No Genitourinary Surgery: Yes (kidney R biopsy 02/02/15) Hysterectomy: Yes (HTN) Thoracic Surgery: Yes (right lung) Other Surgery: Yes (LUNG BIOPSY 1994, CLUB FOOT, Kidney biopsy (SLE) 2014) Social History Alcohol Use: No Tobacco Use: No Substance Use: Yes (marijuana) Allergies-Medications (Allergen,Severity, Reaction): Coded Allergies: latex (Unverified Allergy, Severe, rash, 12/12/16) penicillin G (Unverified Allergy, Severe, RASH, 12/12/16) Uncoded Allergies: PLASTIC TAPE (Allergy, Severe, RASH, 11/27/08) Reported Meds & Prescriptions Reported Meds & Active Scripts Active Protonix (Pantoprazole Sodium) 40 Mg Tab 40 Mg PO DAILY Proair Hfa 8.5 GM Inh (Albuterol Sulfate) 90 Mcg/Act Aer 2 Puff INH Q4-6H PRN 108 mcg/actuation Coreg (Carvedilol) 12.5 Mg Tab 12.5 Mg PO Q12HR Reported K-Tab (Potassium Chloride) 10 Meq Tab 10 Meq PO DAILY PRN Lasix (Furosemide) 40 Mg Tab 40 Mg PO DAILY PRN Gabapentin 300 Mg Cap 300 Mg PO TID Trazodone (Trazodone HCl) 50 Mg Tab 50-100 Mg PO HS PRN Prednisone 20 Mg Tab 80 Mg PO DAILY Clonazepam 0.5 Mg Tab 0.5 Mg PO DAILY Norvasc (Amlodipine Besylate) 5 Mg Tab 5 Mg PO DAILY [place] (Hydrocodone-Acetaminophen) 10-325 Mg Tab 1 Tab PO Q6H PRN Plaquenil (Hydroxychloroquine Sulfate) 200 Mg Tab 300 Mg PO DAILY Take with food Review of Systems Except as stated in HPI: all other systems reviewed are Neg Physical Exam Narrative GENERAL:Well appearing, no acute distress SKIN: Focused skin assessment warm and dry. HEAD: Atraumatic. Normocephalic. EYES: Pupils equal and round. No injection or drainage. ENT: Moist mucous membranes NECK: Trachea midline. CARDIOVASCULAR: Regular rate and rhythm. No murmur appreciated. RESPIRATORY: Clear to auscultation. Breath sounds equal bilaterally. GASTROINTESTINAL: Abdomen soft, non-tender, nondistended. MUSCULOSKELETAL: No obvious deformities. NEUROLOGICAL: Awake and alert. No obvious cranial nerve deficits. Moving all extremities. PSYCHIATRIC: Appropriate mood and affect; insight and judgment normal. Data Data Last Documented VS Vital Signs Date Time Temp Pulse Resp B/P (MAP) Pulse Ox O2 Delivery O2 Flow Rate FiO2 12/12/16 13:52 190/113 (138) 12/12/16 12:43 98.4 87 18 100 Room Air Orders Orders Hydromorphone Pf Inj (Dilaudid Pf Inj) (12/12/16 13:15) Hydromorphone Pf Inj (Dilaudid Pf Inj) (12/12/16 14:00) Clonidine (Catapres) (12/12/16 14:00) Complete Blood Count With Diff (12/12/16 14:20) Basic Metabolic Panel (Bmp) (12/12/16 14:20) ^ Insert Iv (12/12/16 14:20) Labs Laboratory Tests Test 12/12/16 14:46 White Blood Count 7.7 TH/MM3 Red Blood Count 4.96 MIL/MM3 Hemoglobin 14.0 GM/DL Hematocrit 40.7 % Mean Corpuscular Volume 82.2 FL Mean Corpuscular Hemoglobin 28.3 PG Mean Corpuscular Hemoglobin Concent 34.4 % Red Cell Distribution Width 14.8 % Platelet Count 277 TH/MM3 Mean Platelet Volume 8.0 FL Neutrophils (%) (Auto) 92.9 % Lymphocytes (%) (Auto) 5.0 % Monocytes (%) (Auto) 1.6 % Eosinophils (%) (Auto) 0.3 % Basophils (%) (Auto) 0.2 % Neutrophils # (Auto) 7.1 TH/MM3 Lymphocytes # (Auto) 0.4 TH/MM3 Monocytes # (Auto) 0.1 TH/MM3 Eosinophils # (Auto) 0.0 TH/MM3 Basophils # (Auto) 0.0 TH/MM3 CBC Comment DIFF FINAL Differential Comment Blood Urea Nitrogen 19 MG/DL Creatinine 1.65 MG/DL Random Glucose 97 MG/DL Calcium Level 8.8 MG/DL Sodium Level 141 MEQ/L Potassium Level 3.8 MEQ/L Chloride Level 108 MEQ/L Carbon Dioxide Level 26.6 MEQ/L Anion Gap 6 MEQ/L Estimat Glomerular Filtration Rate 50 ML/MIN MDM Medical Decision Making Medical Screen Exam Complete: Yes Emergency Medical Condition: Yes Interpretation(s) Afebrile, no tachycardia, hypertensive Differential Diagnosis Rheumatoid arthritis flare, chronic pain, hypertension, hypertensive urgency Narrative Course This is a 26-year-old male who has a history of rheumatoid arthritis who is chronically opiate dependent who presents to the emergency department with increasing pain in his left shoulder. He says his Lortab isn't working. He was given 2 mg of IM Dilaudid. He was quite hypertensive and was given clonidine. He will be discharged with a prescription for amlodipine which she' s been on the past. I suspect his blood pressure is partially related to pain. Patient requested his kidney function be checked which was at baseline. He requires follow-up with his primary care physician for further pain management. I did suggest that he increase his gabapentin dose which he was amenable to. He has a benign exam. Patient can be discharged home. Diagnosis Primary Impression: Rheumatoid arthritis Qualified Codes: M06.9 - Rheumatoid arthritis, unspecified Patient Instructions: General Instructions Additional Instructions: If you develop severe chest pain, shortness of breath, sweating, lightheadedness , dizziness or difficulty breathing return to the emergency department immediately. Followup with your primary care physician in 2-3 days if your symptoms are not resolved. Med/Other Pt SpecificInfo: No Change to Meds Scripts Gabapentin (Gabapentin) 600 Mg Tab 600 MG PO TID, #90 TAB 0 Refills Prov: Donya Sandoval MD 12/12/16 Amlodipine (Amlodipine) 5 Mg Tab 5 MG PO DAILY for Blood Pressure Management, #30 TAB 0 Refills Prov: Donya Sandoval MD 12/12/16 Disposition: 01 DISCHARGE HOME Condition: Stable Donya Sandoval MD Dec 12, 2016 13:23
[2016-12-12 13:52] VITALS: BP 190/113
[2016-12-12] MEDS ORDERED: cloNIDine HCL 0.1 MG TAB PO ONE (14:00)
[2016-12-12 15:08] LABS: AUTOMATED NEUTROPHIL # 7.1 TH/MM3 (1.8-7.7); BASOPHIL % 0.2 % (0.0-2.0); EOSINOPHIL % 0.3 % (0.0-4.0); HEMATOCRIT 40.7 % (39.0-51.0); HEMO FLAGS DIFF FINAL; LYMPHOCYTE # 0.4 TH/MM3 (1.0-4.8); MEAN CELL VOLUME 82.2 FL (80.0-100.0); MEAN CORPUSCULAR HEMOGLOBIN 28.3 PG (27.0-34.0); MEAN CORPUSCULAR HGB CONC 34.4 % (32.0-36.0); MONO % 1.6 % (0.0-8.0); NEUT % 92.9 % (16.0-70.0); PLATELET COUNT 277 TH/MM3 (150-450); RED BLOOD COUNT 4.96 MIL/MM3 (4.50-5.90); RED CELL DISTRIBUTION WIDTH 14.8 % (11.6-17.2); WHITE BLOOD COUNT 7.7 TH/MM3 (4.0-11.0)
[2016-12-12 15:16] LABS: BICARBONATE 26.6 MEQ/L (21.0-32.0); POTASSIUM 3.8 MEQ/L (3.5-5.1)
[2016-12-12] MEDS ORDERED: GABA600T PO (16:12)
[2016-12-12] MEDS ORDERED: AMLO5TAB2 PO (16:12)
== END 2016-12-12 17:18 | disposition home or self-care (01) ==
LOC: NEPD 12:39
DX: M06.9 Rheumatoid arthritis, unspecified (principal); I10 Essential (primary) hypertension
CPT/HCPCS: 80048; 85025; 96372; 99284; J1170

== ENCOUNTER 2016-12-31 14:50 | Emergency (ER) | payer MEDICAID ==
[~2016-12-31] VITALS: Ht 165.1 cm; Wt 65.0 kg
[~2016-12-31 14:50] MED LIST changes: +AMLO5TAB2 PO; +GABA600T PO; -NORC5TAB PO
[2016-12-31 14:53] VITALS: BP 215/124; PULSE 99; RESP 18; TEMP 98.8; O2SAT 98
--- NOTE | 2016-12-31 14:55 | PD ---
Physical Exam Time Seen by Provider: 14:54 Narrative 18-year-old male with complaint of generalized pain to "whole body "secondary to rheumatoid arthritis flareup for the past few days. Denies fever, vomiting. Patient seen in triage. Vital signs reviewed. Patient taken to medical bed. MDM Supervised Visit with KARIN: Korin Matthews Dec 31, 2016 14:55
--- NOTE | 2016-12-31 15:05 | PD ---
HPI . RA flare Chief Complaint: Pain: Acute or Chronic Time Seen by Provider: 15:04 Travel History International Travel<30 days: No Contact w/Intl Traveler<30days: No Traveled to known affect area: No History of Present Illness HPI 26 yr old male here with c/o RA flare. He says he needs something for pain. He was taking Lortabs 10, but says he does not have anyone who is willing to give him a constant supply. He has an appointment with the doctor of pharmacy, but can't wait until then as his pain is severe now. He has no other complaints. PFSH Past Medical History Arthritis: Yes (ra(whole body)) Asthma: Yes (INTERSTITIAL LUNG DISEASE) Autoimmune Disease: Yes (Systemic Lupus, RA) Anxiety: Yes Depression: Yes Cardiovascular Problems: Yes (HTN) Chemotherapy: Yes (02/2015 3months kidney and RA issues) Chest Pain: Yes (with breathing dx process with bilat lung) Diminished Hearing: No Gastrointestinal Disorders: Yes (acid reflux) GERD: Yes Genitourinary: Yes Hypertension: Yes Immune Disorder: Yes (SYSTEMIC LUPUS) Kidney Stones: Yes Musculoskeletal: Yes (arthritis) Psychiatric: Yes Respiratory: Yes (INTERSTICIAL LUNG DISEASE ) Immunizations Current: Yes Past Surgical History AICD: No Endocrine Surgery: No Genitourinary Surgery: Yes (kidney R biopsy 02/02/15) Hysterectomy: Yes (HTN) Thoracic Surgery: Yes (right lung) Other Surgery: Yes (LUNG BIOPSY 1994, CLUB FOOT, Kidney biopsy (SLE) 2014) Social History Alcohol Use: No Tobacco Use: No Substance Use: No Allergies-Medications (Allergen,Severity, Reaction): Coded Allergies: latex (Unverified Allergy, Severe, rash, 12/12/16) penicillin G (Unverified Allergy, Severe, RASH, 12/12/16) Uncoded Allergies: PLASTIC TAPE (Allergy, Severe, RASH, 11/27/08) Reported Meds & Prescriptions Reported Meds & Active Scripts Active Gabapentin 600 Mg Tab 600 Mg PO TID Amlodipine (Amlodipine Besylate) 5 Mg Tab 5 Mg PO DAILY Protonix (Pantoprazole Sodium) 40 Mg Tab 40 Mg PO DAILY Proair Hfa 8.5 GM Inh (Albuterol Sulfate) 90 Mcg/Act Aer 2 Puff INH Q4-6H PRN 108 mcg/actuation Coreg (Carvedilol) 12.5 Mg Tab 12.5 Mg PO Q12HR Reported K-Tab (Potassium Chloride) 10 Meq Tab 10 Meq PO DAILY PRN Lasix (Furosemide) 40 Mg Tab 40 Mg PO DAILY PRN Gabapentin 300 Mg Cap 300 Mg PO TID Trazodone (Trazodone HCl) 50 Mg Tab 50-100 Mg PO HS PRN Prednisone 20 Mg Tab 80 Mg PO DAILY Clonazepam 0.5 Mg Tab 0.5 Mg PO DAILY Norvasc (Amlodipine Besylate) 5 Mg Tab 5 Mg PO DAILY [place] (Hydrocodone-Acetaminophen) 10-325 Mg Tab 1 Tab PO Q6H PRN Plaquenil (Hydroxychloroquine Sulfate) 200 Mg Tab 300 Mg PO DAILY Take with food Review of Systems General / Constitutional: No: Fever Eyes: No: Visual changes HENT: No: Headaches Cardiovascular: No: Chest Pain or Discomfort Respiratory: No: Shortness of Breath Gastrointestinal: No: Abdominal Pain Genitourinary: No: Dysuria Musculoskeletal: Positive: Pain (diffuse joint pain ) Skin: No Rash Neurologic: No: Weakness Psychiatric: No: Depression Endocrine: No: Polydipsia Hematologic/Lymphatic: No: Easy Bruising Physical Exam Narrative GENERAL: AAO x 3, no acute distress, Well-nourished, well-developed patient. SKIN: Warm and dry. No visible rashes or bruising. HEAD: Normocephalic and atraumatic. EYES: No scleral icterus. No injection or drainage. ENT: No nasal drainage noted. Mucous membranes pink. Airway patent. NECK: Supple, trachea midline. No JVD. CARDIOVASCULAR: Regular rate and rhythm without murmurs, gallops, or rubs. RESPIRATORY: Breath sounds equal bilaterally. No accessory muscle use. No rhonchi or rales. GASTROINTESTINAL: Abdomen soft, non-tender, nondistended. EXTREMITIES: No cyanosis or edema. Full ROM of all joints, pain elicited with movement. BACK: No obvious deformity. No CVA tenderness. NEURO: CN II-12 intact, supervisor electronic coils strength normal b/l, UE and LE 5/5, no focal deficits PSYCH: AAO x 3, normal affect. Data Data Last Documented VS Vital Signs Date Time Temp Pulse Resp B/P (MAP) Pulse Ox O2 Delivery O2 Flow Rate FiO2 12/31/16 15:33 153/108 (123) 12/31/16 14:53 98.8 99 18 98 Orders Orders Hydromorphone Pf Inj (Dilaudid Pf Inj) (12/31/16 15:15) [facility] Medical Decision Making Medical Screen Exam Complete: Yes Emergency Medical Condition: Yes Medical Record Reviewed: Yes Differential Diagnosis acute on chronic pain, RA, opiate dependence Narrative Course 26 year-old male with history of rheumatoid arthritis here requesting something for his pain. I have discussed the case with my attending Dr. Rodriguez. We will provide the patient with 2 mg IM dilaudid. He will need to f/u with his PCP/doctor of pharmacy for further pain medications. Bp elevated; likely related to pain. Patient is asymptomatic. Labs and further workup not indicated as patient truly needs meds for pain control. Diagnosis Primary Impression: Rheumatoid arthritis Qualified Codes: M06.9 - Rheumatoid arthritis, unspecified Patient Instructions: General Instructions Additional Instructions: Please return to emergency department if your symptoms return or worsen. Follow up with your primary care provider. Disposition: 01 DISCHARGE HOME Condition: Stable Zelda Ortiz Dec 31, 2016 15:05
[2016-12-31] MEDS ORDERED: HYDROmorphone HCL PF 2 MG/ML VIAL IM ONE (15:15)
[2016-12-31 15:33] VITALS: BP 153/108
== END 2016-12-31 16:03 | disposition home or self-care (01) ==
LOC: NEPD 14:50
DX: M06.9 Rheumatoid arthritis, unspecified (principal); M32.9 Systemic lupus erythematosus, unspecified; I10 Essential (primary) hypertension; K21.9 Gastro-esophageal reflux disease without esophagitis
CPT/HCPCS: 96372; 99284; J1170

== ENCOUNTER 2017-01-23 14:33 | Emergency (ER) | payer MEDICAID ==
[~2017-01-23] VITALS: Ht 165.1 cm; Wt 65.0 kg
[2017-01-23 14:35] VITALS: BP 150/117; PULSE 118; RESP 15; TEMP 98.4; O2SAT 98
[2017-01-23 16:05] VITALS: BP 183/107; PULSE 83; RESP 16; O2SAT 98
[2017-01-23 16:58] VITALS: BP 161/98; PULSE 87; RESP 18; O2SAT 99
--- NOTE | 2017-01-23 17:24 | PD ---
HPI Chief Complaint: Hypertension Time Seen by Provider: 16:51 Travel History International Travel<30 days: No Contact w/Intl Traveler<30days: No Traveled to known affect area: No History of Present Illness HPI Patient is a 26-year-old male with history of hypertension, bipolar disorder who presents to emergency room with his mother for evaluation of anxiety and hypertension. Patient reports that he has been checking his blood pressure today, reports that he has noted it to be high. Patient reports that he does take amlodipine 5 mg as well as coreg 12.5 mg for his hypertension. Reports that over the past 3 weeks, [address]. Whalen had stopped his paxil which he takes for treatment of bipolar disorder, depression and anxiety, reports that he recently started BuSpar. Patient reports that BuSpar is not helping with the symptoms, reports that in fact is making him more anxious. Patient reports concerns that his anxiety may be increasing his blood pressure. Patient reports that he takes his blood pressure every morning, reports that he noted it to be high today, patient was brought to the emergency room for evaluation of hypertension. Patient denies any headache or dizziness at this time, patient denies any vision changes. Patient denies any chest pain or shortness of breath. Patient with no complaints at this time. PFSH Past Medical History Arthritis: Yes (ra(whole body)) Asthma: Yes (INTERSTITIAL LUNG DISEASE) Autoimmune Disease: Yes (Systemic Lupus, RA) Anxiety: Yes Depression: Yes Cardiovascular Problems: Yes (HTN) Chemotherapy: Yes (02/2015 3months kidney and RA issues) Chest Pain: Yes (with breathing dx process with bilat lung) Diminished Hearing: No Gastrointestinal Disorders: Yes (acid reflux) GERD: Yes Genitourinary: Yes Hypertension: Yes Immune Disorder: Yes (SYSTEMIC LUPUS) Kidney Stones: Yes Musculoskeletal: Yes (arthritis) Psychiatric: Yes Respiratory: Yes (INTERSTICIAL LUNG DISEASE ) Immunizations Current: Yes Past Surgical History AICD: No Endocrine Surgery: No Genitourinary Surgery: Yes (kidney R biopsy 02/02/15) Hysterectomy: Yes (HTN) Thoracic Surgery: Yes (right lung) Other Surgery: Yes (LUNG BIOPSY 1994, CLUB FOOT, Kidney biopsy (SLE) 2014) Social History Alcohol Use: No Tobacco Use: No Substance Use: No Allergies-Medications (Allergen,Severity, Reaction): Coded Allergies: latex (Unverified Allergy, Severe, rash, 01/23/17) penicillin G (Unverified Allergy, Severe, RASH, 01/23/17) Uncoded Allergies: PLASTIC TAPE (Allergy, Severe, RASH, 11/27/08) Reported Meds & Prescriptions Reported Meds & Active Scripts Active Gabapentin 600 Mg Tab 600 Mg PO TID Amlodipine (Amlodipine Besylate) 5 Mg Tab 5 Mg PO DAILY Protonix (Pantoprazole Sodium) 40 Mg Tab 40 Mg PO DAILY Proair Hfa 8.5 GM Inh (Albuterol Sulfate) 90 Mcg/Act Aer 2 Puff INH Q4-6H PRN 108 mcg/actuation Coreg (Carvedilol) 12.5 Mg Tab 12.5 Mg PO Q12HR Reported K-Tab (Potassium Chloride) 10 Meq Tab 10 Meq PO DAILY PRN Lasix (Furosemide) 40 Mg Tab 40 Mg PO DAILY PRN Gabapentin 300 Mg Cap 300 Mg PO TID Trazodone (Trazodone HCl) 50 Mg Tab 50-100 Mg PO HS PRN Prednisone 20 Mg Tab 80 Mg PO DAILY Clonazepam 0.5 Mg Tab 0.5 Mg PO DAILY Norvasc (Amlodipine Besylate) 5 Mg Tab 5 Mg PO DAILY [place] (Hydrocodone-Acetaminophen) 10-325 Mg Tab 1 Tab PO Q6H PRN Plaquenil (Hydroxychloroquine Sulfate) 200 Mg Tab 300 Mg PO DAILY Take with food Review of Systems General / Constitutional: No: Fever Eyes: No: Visual changes HENT: No: Headaches Cardiovascular: No: Chest Pain or Discomfort Respiratory: No: Shortness of Breath Gastrointestinal: No: Abdominal Pain Genitourinary: No: Dysuria Musculoskeletal: No: Pain Skin: No Rash Neurologic: No: Weakness Psychiatric: Positive: Anxiety, No: Depression Endocrine: No: Polydipsia Hematologic/Lymphatic: No: Easy Bruising Physical Exam Narrative GENERAL: No acute distress, nontoxic SKIN: Focused skin assessment warm/dry. HEAD: Atraumatic. Normocephalic. EYES: Pupils equal and round. No scleral icterus. No injection or drainage. ENT: No nasal bleeding or discharge. Mucous membranes pink and moist. NECK: Trachea midline. No JVD. CARDIOVASCULAR: Regular rate and rhythm. No murmur appreciated. RESPIRATORY: No accessory muscle use. Clear to auscultation. Breath sounds equal bilaterally. GASTROINTESTINAL: Abdomen soft, non-tender, nondistended. Hepatic and splenic margins not palpable. MUSCULOSKELETAL: No obvious deformities. No clubbing. No cyanosis. No edema. NEUROLOGICAL: Awake and alert. No obvious cranial nerve deficits. Motor grossly within normal limits. Normal speech. PSYCHIATRIC: Appropriate mood and affect; insight and judgment normal. Data Data Last Documented VS Vital Signs Date Time Temp Pulse Resp B/P (MAP) Pulse Ox O2 Delivery O2 Flow Rate FiO2 01/23/17 16:58 87 18 161/98 (119) 99 Room Air 01/23/17 14:35 98.4 [facility] Medical Decision Making Medical Screen Exam Complete: Yes Emergency Medical Condition: Yes Medical Record Reviewed: Yes Interpretation(s) Vital Signs Date Time Temp Pulse Resp B/P (MAP) Pulse Ox O2 Delivery O2 Flow Rate FiO2 01/23/17 16:58 87 18 161/98 (119) 99 Room Air 01/23/17 16:58 99 Room Air 01/23/17 16:05 83 16 183/107 (132) 98 Room Air 01/23/17 14:35 98.4 118 15 150/117 (128) 98 Differential Diagnosis Differential includes hypertension, anxiety reaction Narrative Course 26-year-old male presents to emergency room for evaluation of hypertension. Has been compliant with his medications and has been taking amlodipine as well as Coreg as directed. Patient was concerned as he took his blood pressure this morning and it was noted to be elevated. Patient's blood pressure currently 161 /98 which he reports is his normal blood pressure. Patient denies any headache or dizziness or vision changes or any complaints at this time. Patient is concerned that his primary care doctor recently changed him from Paxil to BuSpar 3 weeks ago, reports concerns that this may be causing him to have increased anxiety causing elevated blood pressure. Patient currently asymptomatic as far as his blood pressure is concerned. Discussed need for him to follow-up with his primary care doctor tomorrow for medication changes that he is not happy with the effects of BuSpar. Understands needs to monitor his blood pressure, he will keep a lot of his blood pressure and presented to his primary care doctor for any changes in his blood pressure medications. Signs and symptoms of when to return to the emergency room was reviewed patient as well as mother in detail. Diagnosis Primary Impression: HTN (hypertension) Additional Impression: Anxiety Patient Instructions: General Instructions Additional Instructions: Please follow up with your primary care doctor as soon as possible Please keep a log of your blood pressures for your primary care doctor Return to ER as needed Disposition: 01 DISCHARGE HOME Condition: Stable Violet Chilel DO Jan 23, 2017 17:24
== END 2017-01-23 18:14 | disposition home or self-care (01) ==
LOC: NEPK 14:33 → NEPC 18:14
DX: I10 Essential (primary) hypertension (principal); F41.9 Anxiety disorder, unspecified; M32.9 Systemic lupus erythematosus, unspecified
CPT/HCPCS: 99281

== ENCOUNTER 2017-02-14 03:10 | Observation (INO) | payer MEDICAID ==
[~2017-02-14] VITALS: Ht 165.1 cm; Wt 66.0 kg
[2017-02-14] VITALS (8 sets, daily range): BP systolic 119–200; BP diastolic 70–107; PULSE 62–81; RESP 16–20; TEMP 98–98.9; O2SAT 94–98
--- NOTE | 2017-02-14 03:50 | PD ---
HPI Chief Complaint: Hypertension Time Seen by Provider: 03:21 Travel History International Travel<30 days: No Contact w/Intl Traveler<30days: No Traveled to known affect area: No History of Present Illness HPI The patient is a 26-year-old male with rheumatoid arthritis severe hypertension for which he is on amlodipine and carvedilol. Is on plaquenil and other Multiple Anti-Autoimmune Meds Including Prednisone 20 Mg Daily. His Pressure for 2 Days Has Been Severely High which happens when his Pain in his joints is not well controlled , Took Ativan by Mouth without Relief of His Symptoms. Has not seen another MD for this event and got no relief from home meds , Pain is diffuse mostly in joints and not releived in ER. chronic with now acute flare. PFSH Past Medical History Arthritis: Yes (ra(whole body)) Asthma: Yes (INTERSTITIAL LUNG DISEASE) Autoimmune Disease: Yes (Systemic Lupus, RA) Anxiety: Yes Depression: Yes Cardiovascular Problems: Yes (HTN) Chemotherapy: Yes (02/2015 3months kidney and RA issues) Chest Pain: Yes (with breathing dx process with bilat lung) Diminished Hearing: No Gastrointestinal Disorders: Yes (acid reflux) GERD: Yes Genitourinary: Yes Hypertension: Yes Immune Disorder: Yes (SYSTEMIC LUPUS) Kidney Stones: Yes Musculoskeletal: Yes (arthritis) Psychiatric: Yes Respiratory: Yes (ILD) Immunizations Current: Yes Past Surgical History AICD: No Endocrine Surgery: No Genitourinary Surgery: Yes (kidney R biopsy 02/02/15) Hysterectomy: Yes (HTN) Thoracic Surgery: Yes (right lung) Other Surgery: Yes (LUNG BIOPSY 1994, CLUB FOOT, Kidney biopsy (SLE) 2014) Social History Alcohol Use: No Tobacco Use: No Substance Use: No Allergies-Medications (Allergen,Severity, Reaction): Coded Allergies: latex (Unverified Allergy, Severe, rash, 02/14/17) penicillin G (Unverified Allergy, Severe, RASH, 02/14/17) Uncoded Allergies: PLASTIC TAPE (Allergy, Severe, RASH, 11/27/08) Reported Meds & Prescriptions Reported Meds & Active Scripts Active Hydrocodone-Acetamin 5-325 mg (Hydrocodone/Acetaminophen) 5 Mg-325 Mg Tablet 1 Tab PO Q6HR PRN Gabapentin 600 Mg Tab 600 Mg PO TID Protonix (Pantoprazole Sodium) 40 Mg Tab 40 Mg PO DAILY Proair Hfa 8.5 GM Inh (Albuterol Sulfate) 90 Mcg/Act Aer 2 Puff INH Q4-6H PRN 108 mcg/actuation Coreg (Carvedilol) 12.5 Mg Tab 12.5 Mg PO Q12HR Reported K-Tab (Potassium Chloride) 10 Meq Tab 10 Meq PO DAILY PRN Lasix (Furosemide) 40 Mg Tab 40 Mg PO DAILY PRN Trazodone (Trazodone HCl) 50 Mg Tab 50-100 Mg PO HS PRN Prednisone 20 Mg Tab 80 Mg PO DAILY Clonazepam 0.5 Mg Tab 0.5 Mg PO DAILY Norvasc (Amlodipine Besylate) 5 Mg Tab 5 Mg PO DAILY Plaquenil (Hydroxychloroquine Sulfate) 200 Mg Tab 300 Mg PO DAILY Take with food Review of Systems Except as stated in HPI: all other systems reviewed are Neg HENT: Positive: Headaches Physical Exam Narrative GENERAL: small body habitus SKIN: Warm and dry. shiny extensor surfaces redness to hands and feet HEAD: Atraumatic. Normocephalic. EYES: Pupils equal and round. No scleral icterus. No injection or drainage. ENT: No nasal bleeding or discharge. Mucous membranes pink and moist. NECK: Trachea midline. No JVD. CARDIOVASCULAR: Regular rate and rhythm. BP was elevated to 207 SBP RESPIRATORY: No accessory muscle use. .wheeze slight in upper airways bilateral GASTROINTESTINAL: Abdomen soft, non-tender, nondistended. Hepatic and splenic margins not palpable. MUSCULOSKELETAL: Extremities swollen knuckles ulnar deviation RA appearance cyanosis, or edema. No obvious deformities. NEUROLOGICAL: Awake and alert. No obvious cranial nerve deficits. Motor grossly within normal limits. Five out of 5 muscle strength in the arms and legs. Normal speech. PSYCHIATRIC: Appropriate mood and affect; insight and judgment normal. Data Data Last Documented VS Vital Signs Date Time Temp Pulse Resp B/P (MAP) Pulse Ox O2 Delivery O2 Flow Rate FiO2 02/14/17 06:00 63 16 166/70 (102) 97 Room Air 02/14/17 03:11 98.5 Orders Orders Oxycodone-Acetamin 5-325 Mg (Percocet (02/14/17 04:00) Morphine Inj (Morphine Inj) (02/14/17 05:00) Complete Blood Count With Diff (02/14/17 05:37) Comprehensive Metabolic Panel (02/14/17 05:37) Westergren Sedimentation Rate (02/14/17 05:37) C-Reactive Protein (Crp) (02/14/17 05:37) Urinalysis - C+S If Indicated (02/14/17 05:37) Chest, Pa & Lat (02/14/17 ) Lorazepam Inj (Ativan Inj) (02/14/17 05:45) Admit Order (Ed Use Only) (02/14/17 06:25) Labs Laboratory Tests Test 02/14/17 05:40 White Blood Count 6.7 TH/MM3 Red Blood Count 5.04 MIL/MM3 Hemoglobin 14.4 GM/DL Hematocrit 41.8 % Mean Corpuscular Volume 83.0 FL Mean Corpuscular Hemoglobin 28.5 PG Mean Corpuscular Hemoglobin Concent 34.4 % Red Cell Distribution Width 14.5 % Platelet Count 275 TH/MM3 Mean Platelet Volume 8.4 FL Neutrophils (%) (Auto) 74.5 % Lymphocytes (%) (Auto) 17.2 % Monocytes (%) (Auto) 4.1 % Eosinophils (%) (Auto) 3.8 % Basophils (%) (Auto) 0.4 % Neutrophils # (Auto) 5.0 TH/MM3 Lymphocytes # (Auto) 1.2 TH/MM3 Monocytes # (Auto) 0.3 TH/MM3 Eosinophils # (Auto) 0.3 TH/MM3 Basophils # (Auto) 0.0 TH/MM3 CBC Comment DIFF FINAL Differential Comment Erythrocyte Sedimentation Rate 17 mm/hr Blood Urea Nitrogen 10 MG/DL Creatinine 1.56 MG/DL Random Glucose 102 MG/DL Total Protein 7.7 GM/DL Albumin 3.5 GM/DL Calcium Level 8.6 MG/DL Alkaline Phosphatase 86 U/L Aspartate Amino Transf (AST/SGOT) 22 U/L Alanine Aminotransferase (ALT/SGPT) 17 U/L Total Bilirubin 0.8 MG/DL Sodium Level 138 MEQ/L Potassium Level 3.3 MEQ/L Chloride Level 105 MEQ/L Carbon Dioxide Level 23.4 MEQ/L Anion Gap 10 MEQ/L Estimat Glomerular Filtration Rate 53 ML/MIN C-Reactive Protein 3.40 MG/DL MDM Medical Decision Making Medical Screen Exam Complete: Yes Emergency Medical Condition: Yes Differential Diagnosis HTN due to pain of his RA or poor compliance witth HTN meds or failure of his BP meds to hold his BP to normal Narrative Course 2 percocets are given with modest relief of his Sx and then Morphine 4 mg ivp reduces BP towards norm Diagnosis Primary Impression: Uncontrolled pain Additional Impressions: HTN (hypertension) Rheumatoid arthritis involving both wrists Scripts Hydrocodone/Acetaminophen (Hydrocodone-Acetamin 5-325 mg) 5 Mg-325 Mg Tablet 1 TAB PO Q6HR Y for intractable pain, #12 TAB Prov: Lashell Fernandez PA-C 02/14/17 Jose Martel MD Feb 14, 2017 03:50
[2017-02-14] MEDS ORDERED: oxyCODONE/ACETAMINOPHEN 5 MG/325 MG TAB PO ONE (04:00)
[2017-02-14] MEDS ORDERED: MORPHINE SULFATE 4 MG/ML INJ IV PUSH ONE (05:00)
[2017-02-14] MEDS ORDERED: LORazepam 2 MG/ML VIAL IV PUSH ONE (05:45)
[2017-02-14 05:58] LABS: BASOPHIL % 0.4 % (0.0-2.0); EOSINOPHIL # 0.3 TH/MM3 (0-0.4); EOSINOPHIL % 3.8 % (0.0-4.0); HEMATOCRIT 41.8 % (39.0-51.0); HEMO FLAGS DIFF FINAL; LYMPH % 17.2 % (9.0-44.0); LYMPHOCYTE # 1.2 TH/MM3 (1.0-4.8); MEAN CORPUSCULAR HEMOGLOBIN 28.5 PG (27.0-34.0); MEAN CORPUSCULAR HGB CONC 34.4 % (32.0-36.0); MONO % 4.1 % (0.0-8.0); NEUT % 74.5 % (16.0-70.0); PLATELET COUNT 275 TH/MM3 (150-450); RED BLOOD COUNT 5.04 MIL/MM3 (4.50-5.90); RED CELL DISTRIBUTION WIDTH 14.5 % (11.6-17.2); WHITE BLOOD COUNT 6.7 TH/MM3 (4.0-11.0)
[2017-02-14 06:18] LABS: ALT (GPT) 17 U/L (12-78); ANION GAP 10 MEQ/L (5-15); AST (GOT) 22 U/L (15-37); BICARBONATE 23.4 MEQ/L (21.0-32.0); BLOOD UREA NITROGEN 10 MG/DL (7-18); CHLORIDE 105 MEQ/L (98-107); GLOMERULAR FILTRATION RATE 53 ML/MIN (>89); POTASSIUM 3.3 MEQ/L (3.5-5.1); SODIUM (NA) 138 MEQ/L (136-145)
[2017-02-14 06:20] LABS: ALKALINE PHOSPHATASE 86 U/L (45-117); TOTAL BILIRUBIN ADULT 0.8 MG/DL (0.2-1.0)
[2017-02-14] MEDS ORDERED: ONDANSETRON HCL 4 MG/2 ML VIAL IVP PRN (06:30)
[2017-02-14] MEDS ORDERED: BISACODYL 10 MG SUPP RECTAL PRN (06:30)
[2017-02-14] MEDS ORDERED: traZODone HCL 50 MG TAB PO PRN (06:30)
[2017-02-14] MEDS ORDERED: FUROSEMIDE 40 MG TAB PO PRN (06:30)
[2017-02-14] MEDS ORDERED: MAGNESIUM HYDROXIDE SUSP 30 ML CUP PO PRN (06:30)
[2017-02-14] MEDS ORDERED: MORPHINE SULFATE 4 MG/ML INJ IV PUSH PRN (06:30)
[2017-02-14] MEDS ORDERED: SENNOSIDES 8.6 MG TAB PO PRN (06:30)
[2017-02-14] MEDS ORDERED: ALBUTEROL SULFATE 90 MCG/ACT HFA 8 GM INHALER INH PRN (06:30)
[2017-02-14] MEDS ORDERED: SODIUM CHLORIDE 0.9% FLUSH 10 ML FLUSH IV FLUSH PRN (06:30)
[2017-02-14] MEDS ORDERED: ACETAMINOPHEN 325 MG TAB PO PRN (06:30)
[2017-02-14] MEDS ORDERED: ACETAMINOPHEN/HYDROcodone 325 MG/5 MG TAB PO PRN (06:30)
[2017-02-14] MEDS ORDERED: LACTULOSE SYRUP 20 GM/30 ML CUP PO PRN (06:30)
--- NOTE | 2017-02-14 06:38 | RADRPT ---
EXAM DATE/TIME: 02/14/2017 05:53 [facility] COMPARISON: CHEST PA & LAT, November 11, 2016, 14:05. INDICATIONS : Chest pain and short of breath. MEDICAL HISTORY : Rheumatoid arthritis. Lupus. Renal calculi. Hypertension.Lung disease SURGICAL HISTORY : Right lung biopsy. ENCOUNTER: Initial ACUITY: 1 day PAIN SCORE: 10/10 LOCATION: Bilateral chest FINDINGS: The cardiac silhouette is enlarged in transverse diameter. There are chronic fibrotic changes bilater ally. There is no evidence of pneumonia. No pleural effusions are identified. Pleural thickening is present in the right apex. CONCLUSION: 1. Chronic fibrotic changes bilaterally unchanged from the prior study. No acute pulmonary disease. Alok Palma MD on February 14, 2017 at 6:37 Board Certified Radiologist. This report was verified electronically.
[2017-02-14] MEDS ORDERED: PILL SPLITTER OTHER PRN (06:45)
[2017-02-14 07:37] LABS: BLOOD, URINE SMALL (NEG); COMMENT (UR) CULT NOT INDICATED; CULTURE IF INDICATED CULT NOT INDICATED; GLUCOSE,URINE NEG (NEG); KETONE, URINE NEG (NEG); NITRITE,URINE NEG (NEG); PH, URINE 5.5 (5.0-8.5); URINE COLOR YELLOW (YELLW/STRAW)
[2017-02-14] MEDS ORDERED: clonazePAM 0.5 MG TAB PO SCH (09:00)
[2017-02-14] MEDS ORDERED: PANTOPRAZOLE SOD 40 MG DELAYED RELEASE TAB PO SCH (09:00)
[2017-02-14] MEDS ORDERED: predniSONE 20 MG TAB PO SCH (09:00)
[2017-02-14] MEDS ORDERED: SODIUM CHLORIDE 0.9% FLUSH 10 ML FLUSH IV FLUSH SCH (09:00)
[2017-02-14] MEDS ORDERED: DOCUSATE SODIUM 50 MG/SENNA 8.6 MG TAB PO SCH (09:00)
[2017-02-14] MEDS ORDERED: amLODIPine BESYLATE 5 MG TAB PO SCH (09:00)
[2017-02-14] MEDS ORDERED: HYDROXYCHLOROQUINE SULFATE 200 MG TAB PO SCH (09:00)
[2017-02-14] MEDS ORDERED: GABAPENTIN 300 MG CAP PO SCH (09:00)
[2017-02-14] MEDS ORDERED: CARVEDILOL 12.5 MG TAB PO SCH (09:00)
--- NOTE | 2017-02-14 09:02 | HHI.DCPOC ---
Discharge Care Plan Diagnosis: (1) Rheumatoid arthritis (2) Uncontrolled pain (3) HTN (hypertension) Goals to Promote Your Health * To prevent worsening of your condition and complications * To maintain your health at the optimal level Directions to Meet Your Goals Take your medications as prescribed Follow your dietary instruction Follow activity as directed Keep your appointments as scheduled Take your immunizations and boosters as scheduled If your symptoms worsen call your PCP, if no PCP go to Urgent Care Center or Emergency Room Smoking is Dangerous to Your Health. Avoid second hand smoke Call the 24-hour hour crisis hotline for domestic abuse at Lashell Fernandez PA-C Feb 14, 2017 9:02 am
[2017-02-14] MEDS ORDERED: POTASSIUM CHLORIDE 20 MEQ CONTROLLED RELEASE TAB PO ONE (09:30)
--- NOTE | 2017-02-14 10:24 | HHI.HP ---
[facility] Juan C Whalen M.D. Admission Diagnosis uncontrolled Pain Diagnoses: Chief Complaint: joint pain, headache, hypertension Travel History International Travel<30 Days: No Contact w/Intl Traveler <30 Da: No Traveled to Known Affected Are: No History of Present Illness Written by Lashell Fernandez, acting as scribe for Dr. Parmar on 02/14/17 at 10: 14. This note was transcribed by scribe Lashell Fernandez. I, Dr. Nixon Parmar personally performed the history, physical exam, and medical decision making; and confirmed the accuracy of the information in the transcribed note. Authenticated by Dr. Nixon Parmar on 02/14/17 at 10:25. 26-year-old male with history of SLE, rheumatoid arthritis, interstitial lung disease, hypertension, CKD stage III, anxiety, depression, GERD, presents with diffuse joint pains, headache, and elevated blood pressure. Yesterday the patient reports he started to notice feet and hand swelling and reports increasing diffuse joint pains throughout his entire body. He checked his blood pressure around 9pm which was 153/100 and kept increasing throughout the night. He also reports diffuse left sided headache which he believes is secondary to his elevated blood pressure. He took an extra Ativan last night to help with the pain however no relief. He also took over the counter pain medication with no relief. He denies being on any narcotics recently for his pain. The pain became increasingly worse throughout the night therefore he presented to the ED around 3am. He reports compliance with Plaquenil and prednisone 20mg daily. He follows with PCP Dr. Whalen. He has been instructed by Dr. Whalen to increase his prednisone to 80 mg [id number] when he has a flare up. He has an appointment to establish with a rat exterminator in [place] in May. He has no other medical complaints at this time. Review of Systems Except as stated in HPI: all other systems reviewed are Neg Past Family Social History Past Medical History SLE rheumatoid arthritis interstitial lung disease hypertension CKD stage III anxiety depression GERD Past Surgical History Right kidney biopsy 2014 Right lung biopsy Club foot surgery Reported Medications Gabapentin 600 Mg Tab 600 Mg PO TID Amlodipine (Amlodipine Besylate) 5 Mg Tab 5 Mg PO DAILY Protonix (Pantoprazole Sodium) 40 Mg Tab 40 Mg PO DAILY Proair Hfa 8.5 GM Inh (Albuterol Sulfate) 90 Mcg/Act Aer 2 Puff INH Q4-6H PRN 108 mcg/actuation Coreg (Carvedilol) 12.5 Mg Tab 12.5 Mg PO Q12HR K-Tab (Potassium Chloride) 10 Meq Tab 10 Meq PO DAILY PRN Lasix (Furosemide) 40 Mg Tab 40 Mg PO DAILY PRN Gabapentin 300 Mg Cap 300 Mg PO TID Trazodone (Trazodone HCl) 50 Mg Tab 50-100 Mg PO HS PRN Prednisone 20 Mg Tab 80 Mg PO DAILY Clonazepam 0.5 Mg Tab 0.5 Mg PO DAILY Norvasc (Amlodipine Besylate) 5 Mg Tab 5 Mg PO DAILY Landing (Hydrocodone-Acetaminophen) 10-325 Mg Tab 1 Tab PO Q6H PRN Plaquenil (Hydroxychloroquine Sulfate) 200 Mg Tab 300 Mg PO DAILY Take with food Allergies: Coded Allergies: latex (Unverified Allergy, Severe, rash, 02/14/17) penicillin G (Unverified Allergy, Severe, RASH, 02/14/17) Uncoded Allergies: PLASTIC TAPE (Allergy, Severe, RASH, 11/27/08) Family History Brother with brain aneurysm/hypertension at age 20 Social History Denies any alcohol, tobacco, or illicit drug use. Physical Exam Vital Signs Vital Signs Date Time Temp Pulse Resp B/P (MAP) Pulse Ox O2 Delivery O2 Flow Rate FiO2 02/14/17 07:29 98.0 62 16 119/81 (94) 94 02/14/17 07:16 02/14/17 07:10 64 20 128/84 (99) 96 Room Air 02/14/17 06:00 63 16 166/70 (102) 97 Room Air 02/14/17 03:57 73 16 177/106 (129) 97 Room Air 02/14/17 03:55 81 16 158/89 (112) 97 Room Air 02/14/17 03:47 76 16 166/96 (119) 98 Room Air 02/14/17 03:11 98.5 68 16 200/107 (138) 98 Room Air Physical Exam GENERAL: Well-nourished, well-developed young male patient in [facility]. SKIN: Warm and dry. No rash. HEAD: Normocephalic. Atraumatic. EYES: Pupils equal and round. No scleral icterus. No injection or drainage. ENT: No nasal bleeding or discharge. Mucous membranes pink and moist. NECK: Supple. Trachea midline. CARDIOVASCULAR: Regular rate and rhythm. S1, S2 noted. No murmur appreciated. RESPIRATORY: No accessory muscle use. Clear to auscultation. Breath sounds equal bilaterally. GASTROINTESTINAL: Abdomen soft, non-tender, nondistended. Normoactive bowel sounds x4. MUSCULOSKELETAL: Bilateral hands with arthritic deformities at DIPs. Extremities without clubbing, cyanosis, or edema. NEUROLOGICAL: Awake and alert. No obvious cranial nerve deficits. Motor grossly within normal limits. Normal speech. PSYCHIATRIC: Appropriate mood and affect; insight and judgment normal. Laboratory Laboratory Tests Test 02/14/17 05:40 02/14/17 07:08 White Blood Count 6.7 Red Blood Count 5.04 Hemoglobin 14.4 Hematocrit 41.8 Mean Corpuscular Volume 83.0 Mean Corpuscular Hemoglobin 28.5 Mean Corpuscular Hemoglobin Concent 34.4 Red Cell Distribution Width 14.5 Platelet Count 275 Mean Platelet Volume 8.4 Neutrophils (%) (Auto) 74.5 Lymphocytes (%) (Auto) 17.2 Monocytes (%) (Auto) 4.1 Eosinophils (%) (Auto) 3.8 Basophils (%) (Auto) 0.4 Neutrophils # (Auto) 5.0 Lymphocytes # (Auto) 1.2 Monocytes # (Auto) 0.3 Eosinophils # (Auto) 0.3 Basophils # (Auto) 0.0 CBC Comment DIFF FINAL Differential Comment Erythrocyte Sedimentation Rate 17 Blood Urea Nitrogen 10 Creatinine 1.56 Random Glucose 102 Total Protein 7.7 Albumin 3.5 Calcium Level 8.6 Alkaline Phosphatase 86 Aspartate Amino Transf (AST/SGOT) 22 Alanine Aminotransferase (ALT/SGPT) 17 Total Bilirubin 0.8 Sodium Level 138 Potassium Level 3.3 Chloride Level 105 Carbon Dioxide Level 23.4 Anion Gap 10 Estimat Glomerular Filtration Rate 53 C-Reactive Protein 3.40 Urine Color YELLOW Urine Turbidity CLEAR Urine pH 5.5 Urine Specific [place] 1.013 Urine Protein 100 Urine Glucose (UA) NEG Urine Ketones NEG Urine Occult Blood SMALL Urine Nitrite NEG Urine Bilirubin NEG Urine Urobilinogen LESS THAN 2.0 Urine Leukocyte Esterase NEG Urine RBC 12 Urine WBC 2 Microscopic Urinalysis Comment CULT NOT INDICATED Result Diagram: 02/14/17 0540 02/14/17 0540 Imaging Last Impressions Chest X-Ray 02/14/17 0000 Signed Impressions: Service Date/Time: Tuesday, February 14, 2017 05:53 - CONCLUSION: 1. Chronic fibrotic changes bilaterally unchanged from the prior study. No acute pulmonary disease. MD Claudia James VTE Risk Assessment Caprinjadiel VTE Risk Assessment: Mod/High Risk (score >= 2) Caprini Risk Assessment Model Point Value = 1 Point Value = 2 Point Value = 3 Point Value = 5 Age 41-60 Minor surgery BMI > 25 kg/m2 Swollen legs Varicose veins or History of unexplained or recurrent spontaneous Oral contraceptives or hormone replacement Sepsis (< 1 month) Serious lung disease, including pneumonia (< 1 month) Abnormal pulmonary function Acute myocardial infarction Congestive heart failure (< 1 month) History of inflammatory bowel disease Medical patient at bed rest Age 61-74 Arthroscopic surgery Major open surgery (> 45 min) Laparoscopic surgery (> 45 min) Malignancy Confined to bed (> 72 hours) Immobilizing plaster cast Central venous access Age >= 75 History of VTE Family history of VTE Factor V Leiden Prothrombin [id number] Lupus anticoagulant Anticardiolipin antibodies Elevated serum homocysteine Heparin-induced thrombocytopenia Other congenital or acquired thrombophilia Stroke (< 1 month) Elective arthroplasty Hip, pelvis, or leg fracture Acute spinal cord injury (< 1 month) Prophylaxis Regimen Total Risk Factor Score Risk Level Prophylaxis Regimen 0-1 Low Early ambulation 2 Moderate Order ONE of the following: *Sequential Compression Device (SCD) *Heparin 5000 units SQ BID 3-4 Higher Order ONE of the following medications: *Heparin 5000 units SQ TID *Enoxaparin/Lovenox 40 mg SQ daily (WT < 150 kg, CrCl > 30 mL/min) *Enoxaparin/Lovenox 30 mg SQ daily (WT < 150 kg, CrCl > 10-29 mL/min) *Enoxaparin/Lovenox 30 mg SQ BID (WT < 150 kg, CrCl > 30 mL/min) AND/OR *Sequential Compression Device (SCD) 5 or more Highest Order ONE of the following medications: *Heparin 5000 units SQ TID (Preferred with Epidurals) *Enoxaparin/Lovenox 40 mg SQ daily (WT < 150 kg, CrCl > 30 mL/min) *Enoxaparin/Lovenox 30 mg SQ daily (WT < 150 kg, CrCl > 10-29 mL/min) *Enoxaparin/Lovenox 30 mg SQ BID (WT < 150 kg, CrCl > 30 mL/min) AND *Sequential Compression Device (SCD) Assessment and Plan Problem List: (1) Rheumatoid arthritis ICD Code: M06.9 - Rheumatoid arthritis, unspecified Status: Acute (2) SLE (systemic lupus erythematosus) ICD Code: M32.9 - Systemic lupus erythematosus, unspecified Status: Acute (3) Hypertensive urgency ICD Code: I16.0 - Hypertensive urgency Status: Acute (4) Uncontrolled pain ICD Code: R52 - Pain, unspecified Status: Acute Assessment and Plan 26-year-old male with history of SLE, rheumatoid arthritis, interstitial lung disease, hypertension, CKD stage III, anxiety, depression, GERD, presents with diffuse joint pains, headache, and elevated blood pressure. Lupus/Rheumatoid Arthritis Flare with Intractable Pain: patient with worsening diffuse pains x1days. ESR and CRP mildly elevated. -Increased patient's prednisone from 20mg to 80mg daily for treatment of acute flare -continue patient's Plaquenil and gabapentin -control pain with tylenol, Landing prn, and IV morphine prn breakthrough pain counseled regarding narcotics -strongly encouraged outpatient f/up with rat exterminator, patient has appt to establish with rat exterminator in [place] in May -continue outpatient f/up with PCP Dr. Whalen Hypertensive Urgency secondary to Accelerated Hypertension: BP 200/107 upon arrival. Suspect secondary to uncontrolled pain -BP improved in the ED after Ativan, Percocet, and IV morphine -continue patient's coreg and amlodipine -monitor BP, adjust antihypertensives as needed -BP much improved, currently 119/81 Headache: suspect secondary to elevated blood pressures -check Head CT -control BP as above -pain control with tylenol prn, norco, prn -monitor for improvement CKD, stage III: Chronic. Cr 1.56, at baseline. -avoid nephrotoxins -monitor Hypokalemia: K 3.3 -given po KCl replacement Anxiety: chronic -continue patient's clonazepam All other medical conditions listed above stable, continue home medications as appropriate. 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
[2017-02-14] MEDS: GABAPENTIN 300 MG CAP PO SCH ×2 (11:07→12:57)
--- NOTE | 2017-02-14 12:20 | RADRPT ---
EXAM DATE/TIME: 02/14/2017 11:54 [facility] COMPARISON: No previous studies available for comparison. INDICATIONS : Cephalgia with family history of aneurysm. RADIATION DOSE: 31.23 CTDIvol (mGy) MEDICAL HISTORY : Hypertension. Cardiovascular disease SURGICAL HISTORY : None. ENCOUNTER: Initial ACUITY: 1 week PAIN SCALE: 5/10 LOCATION: Bilateral cranial TECHNIQUE: Multiple contiguous axial images were obtained of the head. Using automated exposure control and adj ustment of the mA and/or kV according to patient size, radiation dose was kept as low as reasonably a chievable to obtain optimal diagnostic quality images. DICOM format image data is available electro nically for review and comparison. FINDINGS: CEREBRUM: The ventricles are normal for age. No evidence of midline shift, mass lesion, hemorrhage or acute in farction. No extra-axial fluid collections are seen. POSTERIOR FOSSA: The cerebellum and brainstem are intact. The 4th ventricle is midline. The cerebellopontine angle i s unremarkable. EXTRACRANIAL: The visualized portion of the orbits is intact. SKULL: The calvaria is intact. No evidence of skull fracture. CONCLUSION: Negative for acute process. Vickey Kaur MD FACR on February 14, 2017 at 12:18 Board Certified Radiologist. This report was verified electronically.
[2017-02-14] MEDS ORDERED: HYDR-3516 PO (15:31)
== END 2017-02-14 17:03 | disposition home or self-care (01) ==
LOC: NEPC 03:10 → NEDA 06:27 → NEPGCP 07:24
PROVIDERS: ADMIT Internal Medicine; ATTEND Internal Medicine
DX: M06.9 Rheumatoid arthritis, unspecified (principal); M32.9 Systemic lupus erythematosus, unspecified; I16.0 Hypertensive urgency; R51 Headache; J84.9 Interstitial pulmonary disease, unspecified; R07.9 Chest pain, unspecified; R06.02 Shortness of breath; E87.6 Hypokalemia; I12.9 Hypertensive chronic kidney disease with stage 1 through stage 4 chronic kidney disease, or unspecified chronic kidney disease; N18.3 Chronic kidney disease, stage 3 (moderate); K21.9 Gastro-esophageal reflux disease without esophagitis; F41.9 Anxiety disorder, unspecified; F32.9 Major depressive disorder, single episode, unspecified; Z79.899 Other long term (current) drug therapy
CPT/HCPCS: 70450; 71020; 80053; 81001; 85025; 85652; 86140; 96374; 96375; 96376; 99285; G0378; J2060; J2270; J7512

== ENCOUNTER 2017-03-20 15:36 | Emergency (ER) | payer MEDICAID ==
[~2017-03-20 15:36] MED LIST changes: -AMLO5TAB2 PO; -GABA300C5 PO; -HYDR-3366 PO; +HYDR-3516 PO
[2017-03-20 15:38] VITALS: BP 109/73; PULSE 74; RESP 16; TEMP 98.3; O2SAT 97
--- NOTE | 2017-03-20 16:21 | RADRPT ---
EXAM DATE/TIME: 03/20/2017 16:06 [facility] COMPARISON: CHEST PA & LAT, February 14, 2017, 5:53. INDICATIONS : Cough and RA flare up. MEDICAL HISTORY : Hypertension. Renal calculi. Gastroesophageal reflux disease. Interstitial lung disease, systemic lupus, Chronic renal impairment, RA SURGICAL HISTORY : Right abrahan biopsy, Kidney biopsy. ENCOUNTER: Initial ACUITY: 3 days PAIN SCORE: 6/10 LOCATION: Bilateral chest FINDINGS: PA and lateral views of the chest demonstrate stable chronic interstitial changes throughout both marky gs. Partially calcified scarring laterally in the right midlung. Blunting of the costophrenic angles probably represents pleural parenchymal scarring associated hyperinflation. Heart size is normal. Oss eous structures are intact. CONCLUSION: 1. Hyperinflation with chronic interstitial prominence probably representing rheumatoid lung. 2. No superimposed acute infiltrate. Ravi Wheat MD on March 20, 2017 at 16:17 Board Certified Radiologist. This report was verified electronically.
--- NOTE | 2017-03-20 16:44 | PD ---
HPI Chief Complaint: Cold / Flu Symptoms Time Seen by Provider: 16:44 Travel History International Travel<30 days: No Contact w/Intl Traveler<30days: No Traveled to known affect area: No History of Present Illness HPI 26-year-old male presents to the emergency room with complaint of cough and congestion 2 days. Reports wheezing and shortness of breath. Has history of asthma. Denies fevers, ear pain, sore throat, abdominal pain, vomiting. Denies chest pain. Has history of RA, interstitial lung disease, and SLE. Has used his albuterol inhaler for symptomatic management and last used at 1 PM. He is not tried any other medications or treatments to alleviate his symptoms. Symptoms are mild in severity. No known relieving or aggravating factors. Primary care provider is Dr. Whalen. Has no other medical complaints. No other modifying factors or associated signs and symptoms. PFSH Past Medical History Arthritis: Yes (ra(whole body)) Asthma: Yes (INTERSTITIAL LUNG DISEASE) Autoimmune Disease: Yes (Systemic Lupus, RA) Blood Disorders: No Anxiety: Yes Depression: Yes Heart Rhythm Problems: No Cancer: No Cardiovascular Problems: Yes (HTN) High Cholesterol: No Chemotherapy: Yes (02/2015 3months kidney and RA issues) Chest Pain: Yes (with breathing dx process with bilat lung) Congestive Heart Failure: No COPD: No Diabetes: No Diminished Hearing: No Endocrine: No Gastrointestinal Disorders: Yes (acid reflux) GERD: Yes Genitourinary: Yes Hypertension: Yes Immune Disorder: Yes (SYSTEMIC LUPUS) Kidney Stones: Yes Musculoskeletal: Yes (arthritis) Neurologic: No Psychiatric: Yes Reproductive: No Respiratory: Yes (ILD) Immunizations Current: Yes Radiation Therapy: No Sleep Apnea: No Thyroid Disease: No Past Surgical History AICD: No Endocrine Surgery: No Genitourinary Surgery: Yes (kidney R biopsy 02/02/15) Hysterectomy: Yes (HTN) Thoracic Surgery: Yes (right lung) Other Surgery: Yes (LUNG BIOPSY 1994, CLUB FOOT, Kidney biopsy (SLE) 2014) Social History Alcohol Use: No Tobacco Use: No Substance Use: No Allergies-Medications (Allergen,Severity, Reaction): Coded Allergies: latex (Unverified Allergy, Severe, rash, 02/14/17) penicillin G (Unverified Allergy, Severe, RASH, 02/14/17) Uncoded Allergies: PLASTIC TAPE (Allergy, Severe, RASH, 11/27/08) Reported Meds & Prescriptions Reported Meds & Active Scripts Active Azithromycin 500 Mg Tab 500 Mg PO DAILY Hydrocodone-Acetamin 5-325 mg (Hydrocodone/Acetaminophen) 5 Mg-325 Mg Tablet 1 Tab PO Q6HR PRN Gabapentin 600 Mg Tab 600 Mg PO TID Protonix (Pantoprazole Sodium) 40 Mg Tab 40 Mg PO DAILY Proair Hfa 8.5 GM Inh (Albuterol Sulfate) 90 Mcg/Act Aer 2 Puff INH Q4-6H PRN 108 mcg/actuation Coreg (Carvedilol) 12.5 Mg Tab 12.5 Mg PO Q12HR Reported K-Tab (Potassium Chloride) 10 Meq Tab 10 Meq PO DAILY PRN Lasix (Furosemide) 40 Mg Tab 40 Mg PO DAILY PRN Trazodone (Trazodone HCl) 50 Mg Tab 50-100 Mg PO HS PRN Prednisone 20 Mg Tab 80 Mg PO DAILY Clonazepam 0.5 Mg Tab 0.5 Mg PO DAILY Norvasc (Amlodipine Besylate) 5 Mg Tab 5 Mg PO DAILY Plaquenil (Hydroxychloroquine Sulfate) 200 Mg Tab 300 Mg PO DAILY Take with food Review of Systems Except as stated in HPI: all other systems reviewed are Neg Physical Exam Narrative GENERAL: Well-nourished, well-developed male patient, in no acute distress; afebrile, nontoxic-appearing SKIN: Warm and dry. HEAD: Atraumatic. Normocephalic. EYES: Pupils equal and round. No scleral icterus. No injection or drainage. ENT: Mucosa pink and moist. No erythema or exudates. No uvular edema. No uvular , palatal, or tonsillar deviation. Airway patent. Nares without nasal blood, purulent drainage. EARS: Bilateral pinnae and external canals appear within normal limits. Bilateral tympanic membranes without erythema, dullness or perforation. NECK: Trachea midline. No lymphadenopathy. CARDIOVASCULAR: Regular rate and rhythm. No murmur appreciated. RESPIRATORY: No accessory muscle use. Lungs with mild wheezing throughout to auscultation. Breath sounds equal bilaterally. No retractions or tachypnea. No Audible wheezing noted. GASTROINTESTINAL: Abdomen soft, non-tender, nondistended. Hepatic and splenic margins not palpable. Bowel sounds are active 4 quadrants. MUSCULOSKELETAL: No obvious deformities. No clubbing. No cyanosis. No edema. NEUROLOGICAL: Awake and alert. Oriented 3. No obvious cranial nerve deficits. Motor grossly within normal limits. Normal speech. Moves all extremities. 5/5 strength to all extremities. PSYCHIATRIC: Appropriate mood and affect; insight and judgment normal. Data Data Last Documented VS Vital Signs Date Time Temp Pulse Resp B/P (MAP) Pulse Ox O2 Delivery O2 Flow Rate FiO2 03/20/17 17:29 73 18 108/73 (85) 97 Room Air 03/20/17 15:38 98.3 Orders Orders Chest, Pa & Lat (03/20/17 ) Albuterol-Ipratropium Neb (Duoneb Neb) (03/20/17 17:00) Ed Discharge Order (03/20/17 18:28) [facility] Medical Decision Making Medical Screen Exam Complete: Yes Emergency Medical Condition: Yes Medical Record Reviewed: Yes Differential Diagnosis Viral illness, asthma exacerbation, pneumonia Narrative Course 26-year-old male with history of RA, interstitial lung disease, SLE, asthma with cough/cold symptoms 2 days. Patient is afebrile on nontoxic appearing. He denies fevers, vomiting. Chest x-ray ordered in triage. 1644: Chest x-ray concludes: Chest X-Ray 03/20/17 0000 Signed Impressions: Service Date/Time: , March 20, 2017 16:06 - CONCLUSION: 1. Hyperinflation with chronic interstitial prominence probably representing rheumatoid lung. 2. No superimposed acute infiltrate. Ravi Wheat MD X-ray report provided to the patient. He is complaining of shortness of breath and wheezing. He has mild wheezing throughout on auscultation. He is in no acute distress. No retractions or tachypnea. Oxygen saturation is 97% on room air. DuoNeb 1 ordered. 1830: On reexamination patient reports improvement in symptoms. Denies shortness of breath at this time. Patient has albuterol inhaler and does not need refills. Azithromycin prescribed for home. Instructed patient to follow up with primary care provider. Patient verbalizes understanding and agreement with treatment plan. Patient is medically cleared and stable for discharge. Discussed reasons to return to the emergency department. Patient agrees with treatment plan. The patients vital signs are stable and the patient is stable for outpatient follow-up and treatment. Patient discharged home, stable and in no acute distress. Diagnosis Primary Impression: Viral illness Additional Impression: Asthma exacerbation Qualified Codes: J45.901 - Unspecified asthma with (acute) exacerbation Referrals: Primary Care Physician Patient Instructions: Asthma (ED), Cold Symptoms (ED), General Instructions Departure Forms: Tests/Procedures, Work Release Enter return to work date: Mar 22, 2017 Additional Instructions: Use Albuterol inhaler as prescribed [id number] decongestants or antihistamines as directed and as needed for symptom management Drink plenty of fluids to prevent dehydration Use hot air humidifier to decrease cough exacerbation Turn off ceiling fans and sleep with head of bed elevated Avoid triggers such as second hand smoke, dust, known allergens Follow-up with your primary care provider Return to the emergency department immediately with worsening of symptoms Med/Other Pt SpecificInfo: Prescription(s) given Scripts Azithromycin (Azithromycin) 500 Mg Tab 500 MG PO DAILY for Infection, #5 TAB 0 Refills Prov: Korin Black 03/20/17 Disposition: 01 DISCHARGE HOME Condition: Stable Korin Black Mar 20, 2017 16:44
[2017-03-20] MEDS ORDERED: AZIT500T2 PO (16:55)
[2017-03-20] MEDS ORDERED: RESP: ALBUTEROL 2.5 MG/IPRATROPIUM 0.5 MG NEB (SCH) INH ONE (17:00)
[2017-03-20 17:29] VITALS: BP 108/73; PULSE 73; RESP 18; O2SAT 97
== END 2017-03-20 18:44 | disposition home or self-care (01) ==
LOC: NEPK 15:36
DX: B34.9 Viral infection, unspecified (principal); J45.901 Unspecified asthma with (acute) exacerbation; M32.9 Systemic lupus erythematosus, unspecified; M05.10 Rheumatoid lung disease with rheumatoid arthritis of unspecified site
CPT/HCPCS: 71020; 94664; 99284

== ENCOUNTER 2017-03-26 16:05 | Emergency (ER) | payer MEDICAID ==
[~2017-03-26 16:05] MED LIST changes: +AZIT500T2 PO
[2017-03-26 16:07] VITALS: BP 160/93; PULSE 70; RESP 14; TEMP 97.8; O2SAT 96
--- NOTE | 2017-03-26 17:17 | PD ---
HPI Chief Complaint: Respiratory Symptoms Time Seen by Provider: 16:38 Travel History International Travel<30 days: No Contact w/Intl Traveler<30days: No Traveled to known affect area: No History of Present Illness HPI 26-year-old male presents to emergency department with increased shortness of breath for 1 week. Says his primary care told him to come to the emergency department for another evaluation. Patient states that he presented to this emergency department one week ago and was prescribed azithromycin and prednisone. Patient then followed up with his primary care physician yesterday and gave him another course of antibiotics but he has not filled this yet. Patient's history is significant for interstitial lung disease, SLE, rheumatoid arthritis. Patient recently started [place] daily. Patient has not followed up with his computing architect because of insurance issues. 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 PFSH Past Medical History Arthritis: Yes (ra(whole body)) Asthma: Yes (INTERSTITIAL LUNG DISEASE) Autoimmune Disease: Yes (Systemic Lupus, RA) Blood Disorders: No Anxiety: Yes Depression: Yes Heart Rhythm Problems: No Cancer: No Cardiac Catheterization: No Cardiovascular Problems: Yes (HTN) High Cholesterol: No Chemotherapy: Yes (02/2015 3months kidney and RA issues) Chest Pain: Yes (with breathing dx process with bilat lung) Congestive Heart Failure: No COPD: No Cerebrovascular Accident: No Diabetes: No Diminished Hearing: No Endocrine: No Gastrointestinal Disorders: Yes (acid reflux) GERD: Yes Glaucoma: No Genitourinary: Yes Headaches: No Hepatitis: No Hiatal Hernia: No Heparin Induced Thrombocytopen: No Hypertension: Yes Immune Disorder: Yes (SYSTEMIC LUPUS) Implanted Vascular Access Dvce: No Kidney Stones: Yes Musculoskeletal: Yes (arthritis) Neurologic: No Psychiatric: Yes Reproductive: No Respiratory: Yes (ILD) Immunizations Current: Yes Migraines: No Myocardial Infarction: No Radiation Therapy: No Renal Failure: No Seizures: No Sickle Cell Disease: No Sleep Apnea: No Thyroid Disease: No Ulcer: No Tetanus Vaccination: < 5 Years Past Surgical History Abdominal Surgery: No AICD: No Appendectomy: No Arteriovenous Shunt: No Cardiac Surgery: No Cholecystectomy: No Coronary Artery Bypass Graft: No Ear Surgery: No Endocrine Surgery: No Eye Surgery: No Genitourinary Surgery: Yes (kidney R biopsy 02/02/15) Gynecologic Surgery: No Hysterectomy: Yes (HTN) Insulin Pump: No Joint Replacement: No Neurologic Surgery: No Oral Surgery: No Pacemaker: No Thoracic Surgery: Yes (right lung) Other Surgery: Yes (LUNG BIOPSY 1994, CLUB FOOT, Kidney biopsy (SLE) 2014) Social History Alcohol Use: No Tobacco Use: No Substance Use: No Allergies-Medications (Allergen,Severity, Reaction): Coded Allergies: latex (Verified Allergy, Severe, rash, 03/26/17) penicillin G (Verified Allergy, Severe, RASH, 03/26/17) Uncoded Allergies: PLASTIC TAPE (Allergy, Severe, RASH, 11/27/08) Reported Meds & Prescriptions Reported Meds & Active Scripts Active Prednisone 20 Mg Tab 40 Mg PO DAILY 10 Days Take 40 mg (2 tablets) daily for 5 days Azithromycin 500 Mg Tab 500 Mg PO DAILY Hydrocodone-Acetamin 5-325 mg (Hydrocodone/Acetaminophen) 5 Mg-325 Mg Tablet 1 Tab PO Q6HR PRN Gabapentin 600 Mg Tab 600 Mg PO TID Protonix (Pantoprazole Sodium) 40 Mg Tab 40 Mg PO DAILY Proair Hfa 8.5 GM Inh (Albuterol Sulfate) 90 Mcg/Act Aer 2 Puff INH Q4-6H PRN 108 mcg/actuation Coreg (Carvedilol) 12.5 Mg Tab 12.5 Mg PO Q12HR Reported K-Tab (Potassium Chloride) 10 Meq Tab 10 Meq PO DAILY PRN Lasix (Furosemide) 40 Mg Tab 40 Mg PO DAILY PRN Trazodone (Trazodone HCl) 50 Mg Tab 50-100 Mg PO HS PRN Prednisone 20 Mg Tab 80 Mg PO DAILY Clonazepam 0.5 Mg Tab 0.5 Mg PO DAILY Norvasc (Amlodipine Besylate) 5 Mg Tab 5 Mg PO DAILY Plaquenil (Hydroxychloroquine Sulfate) 200 Mg Tab 300 Mg PO DAILY Take with food Review of Systems Except as stated in HPI: all other systems reviewed are Neg Physical Exam Narrative GENERAL: Well-developed well-nourished in no apparent distress. Patient sitting comfortably on his cell phone. SKIN: Focused skin assessment warm/dry. HEAD: Atraumatic. Normocephalic. EYES: Pupils equal and round. No scleral icterus. No injection or drainage. ENT: No nasal bleeding or discharge. Mucous membranes pink and moist. NECK: Trachea midline. No JVD. CARDIOVASCULAR: Regular rate and rhythm. No murmur appreciated. RESPIRATORY: No accessory muscle use. Breath sounds equal bilaterally. Diffuse , mild expiratory wheezing. No rales or rhonchi MUSCULOSKELETAL: No obvious deformities. No clubbing. No cyanosis. No edema. NEUROLOGICAL: Awake and alert. No obvious cranial nerve deficits. Motor grossly within normal limits. Normal speech. PSYCHIATRIC: Appropriate mood and affect; insight and judgment normal. Data Data Last Documented VS Vital Signs Date Time Temp Pulse Resp B/P (MAP) Pulse Ox O2 Delivery O2 Flow Rate FiO2 03/26/17 18:57 03/26/17 16:59 15 03/26/17 16:07 97.8 70 96 Orders Orders Chest, Single Ap (03/26/17 ) Ed Discharge Order (03/26/17 18:42) [facility] Medical Decision Making Medical Screen Exam Complete: Yes Emergency Medical Condition: Yes Differential Diagnosis Pneumonia, asthma, interstitial lung disease, medication noncompliance Narrative Course 26-year-old male presents to emergency department with increased shortness of breath for 1 week. Says his primary care told him to come to the emergency department for another evaluation. Patient states that he presented to this emergency department one week ago and was prescribed azithromycin and prednisone. Patient then followed up with his primary care physician yesterday and gave him another course of antibiotics but he has not filled this yet. Patient's history is significant for interstitial lung disease, SLE, rheumatoid arthritis. Patient recently started [place] daily. Patient has not followed up with his computing architect because of insurance issues. 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 Vital signs stable. No tachycardia or hypoxia noted. Physical exam findings mild diffuse expiratory wheezing without accessory muscle use, rales, or rhonchi. Chest x-ray- stable I had an extensive discussion regarding the importance of following up with a computing architect. I discussed possibly obtaining a chest CT here in the emergency department however, stated that this would likely not change my treatment plan for today. The follow-up images would likely best be done by pulmonology. Advised patient to double up on prednisone(see prescription) for 5 days and strongly advised patient to follow his primary care physician for potential referral to a computing architect. Patient understood the conversation and understands the importance of following up with a computing architect as discussed today. Patient was not in any acute distress during the visit today. No tachycardia or hypoxemia was noted today. Note that every reassessment patient was on his phone either talking or texting. Diagnosis Primary Impression: Interstitial lung disease Referrals: [employer] Coating Machine Tender Additional Instructions: Follow-up with her primary care physician within 2-3 days. It is imperative you follow up with a computing architect. Scripts Prednisone (Prednisone) 20 Mg Tab 40 MG PO DAILY for 10 Days, #20 TAB 0 Refills Take 40 mg (2 tablets) daily for 5 days Prov: Donya Sandoval MD 03/26/17 Disposition: 01 DISCHARGE HOME Condition: Stable Zahida Johnson Mar 26, 2017 17:16
[2017-03-26] MEDS ORDERED: PRED20 PO (18:08)
--- NOTE | 2017-03-26 18:40 | RADRPT ---
EXAM DATE/TIME: 03/26/2017 17:47 [facility] COMPARISON: CHEST SINGLE AP, December 02, 2016, 22:22. INDICATIONS : Short of breath. Cough. MEDICAL HISTORY : Hypertension. Renal calculi. Gastroesophageal reflux disease. Interstitial lung disease, systemic lup us, Chronic renal impairment, RA. SURGICAL HISTORY : Right abrahan biopsy, Kidney biopsy. ENCOUNTER: Initial ACUITY: 3 days PAIN SCORE: 0/10 LOCATION: Bilateral chest FINDINGS: The heart size is normal. There is diffuse chronic interstitial disease. The appearance is unchanged. No new alveolar consolidation is seen. No effusion is seen. CONCLUSION: Mild, stable, diffuse interstitial disease. No acute findings. Rik Sheehan MD on March 26, 2017 at 18:37 Board Certified Radiologist. This report was verified electronically.
== END 2017-03-26 19:25 | disposition home or self-care (01) ==
LOC: NEPK 16:05
DX: J84.9 Interstitial pulmonary disease, unspecified (principal); M32.9 Systemic lupus erythematosus, unspecified; M06.9 Rheumatoid arthritis, unspecified; F41.9 Anxiety disorder, unspecified; F32.9 Major depressive disorder, single episode, unspecified; I10 Essential (primary) hypertension; K21.9 Gastro-esophageal reflux disease without esophagitis; Z87.442 Personal history of urinary calculi; Z79.899 Other long term (current) drug therapy
CPT/HCPCS: 71010; 99283